=== PATIENT | female | born 1965 | race Caucasian/White ===

== ENCOUNTER → 2021-05-18 08:57 | Outpatient (CLI) | payer OTHER, SELFPAY ==
[2021-05-18 19:52] LABS: SARS-CoV-2 RNA PCR Negative
== END ==
PROVIDERS: PCP Nurse Practitioner Family; Visit Provider Nurse Practitioner Family
DX: Z20.822 Contact with and (suspected) exposure to COVID-19 (principal)
CPT/HCPCS: C9803; U0003; U0005

== ENCOUNTER → 2021-06-22 17:39 | Outpatient (CLI) | payer OTHER, SELFPAY ==
--- NOTE | ~2021-06-22 | XR_ITS ---
EXAMINATION: XR knee LT min 4V DATE: 06/22/2021 18:54 INDICATION: Left knee pain. TECHNIQUE: 4 views of left knee were obtained. COMPARISON: None. FINDINGS: There is varus angulation at the knee. No fracture. There is severe osteoarthritis of media l and patellofemoral compartments and mild osteoarthritis of lateral compartment. No knee joint effus ion. IMPRESSION: 1. Severe left knee osteoarthritis. Reviewed, dictated and finalized at location A.
--- NOTE | ~2021-06-22 | MM_ITS ---
EXAMINATION: MM screening [facility] BI w [facility] HISTORY: Screening TECHNIQUE: Craniocaudal and mediolateral oblique 3-D tomosynthesis images were obtained and synthetic 2-D images were generated. CAD analysis was submitted and interpreted. COMPARISON: Comparison to multiple prior studies sequentially, with oldest reviewed study dated 02/22. BREAST PARENCHYMAL COMPOSITION: Breast composed of scattered areas of fibroglandular density. FINDINGS: There is a mass in the lower inner quadrant of the right breast anteriorly. The left breast is stable without evidence for malignancy. IMPRESSION: 1. Right breast mass, lower inner quadrant anteriorly. 2. Additional mammographic views and possible breast ultrasound are recommended. BI-RADS Category 0: Incomplete: Needs additional imaging evaluation. Reviewed, dictated and finalized at location A. IMPRESSION: 1. Right breast mass, lower inner quadrant anteriorly. 2. Additional mammographic views and possible breast ultrasound are recommended . BI-RADS Category 0: Incomplete: Needs additional imaging evaluation.
--- NOTE | ~2021-06-22 | XR_ITS ---
EXAMINATION: XR knee RT min 4V DATE: 06/22/2021 18:54 INDICATION: Right knee pain. TECHNIQUE: 4 views of right knee were obtained. COMPARISON: None. FINDINGS: There is varus angulation at the knee. No fracture. There is severe osteoarthritis of media l compartment, moderate osteoarthritis of patellofemoral compartment, and mild osteoarthritis of late ral compartment. There is a small knee joint effusion. IMPRESSION: 1. Severe right knee osteoarthritis. 2. Small right knee joint effusion. Reviewed, dictated and finalized at location A.
== END ==
PROVIDERS: PCP Nurse Practitioner Family; Visit Provider Nurse Practitioner Family
DX: Z12.31 Encounter for screening mammogram for malignant neoplasm of breast (principal); R92.8 Other abnormal and inconclusive findings on diagnostic imaging of breast; M17.0 Bilateral primary osteoarthritis of knee
CPT/HCPCS: 73564; 77063; 77067

== ENCOUNTER 2021-07-22 11:01 | Inpatient (IN) | payer OTHER, SELFPAY ==
[2021-07-22] VITALS (13 sets, daily range): BP systolic 145–149; BP diastolic 69–96; PULSE 97–108; RESP 22–32; TEMP 36.2–36.3; O2SAT 80–94; BMI 46.6
--- NOTE | ~2021-07-22 | XR_ITS ---
EXAMINATION: XR chest 1V portable INDICATION: Acute respiratory failure, COVID 19 pneumonia TECHNIQUE: Portable AP chest at 1024 hours COMPARISON: 08/06/2021 FINDINGS: The endotracheal tube ends approximately 4.3 cm above the rishi. The nasogastric tube is i n the stomach. A right upper extremity PICC ends with its tip in the superior vena cava. Diffuse opac ities persist throughout all lung zones without significant change. There is no pleural effusion or p neumothorax. The cardiomediastinal silhouette is stable. IMPRESSION: 1. Stable diffuse lung disease, consistent with pneumonia and/or pulmonary edema. Reviewed, dictated and finalized at location A. K MANAGER IMPRESSION: 1. Stable diffuse lung disease, consistent with pneumonia and/or pulmonary jeff a.
--- NOTE | ~2021-07-22 | XR_ITS ---
EXAMINATION: XR chest 1V portable EXAM DATE: 07/28/2021 12:30 INDICATION: Respiratory failure. COVID pneumonia. TECHNIQUE: Portable AP frontal chest x-ray was obtained. Comparison is made to prior examination from 07/22/2021. FINDINGS: Cardiomegaly, pulmonary vascular congestion. Diffuse bilateral COVID pneumonia, with mild i nterval progression. No pneumothorax. No sizable pleural effusion. There is lumbar scoliosis. IMPRESSION: Progression of diffuse COVID pneumonia. Reviewed, dictated and finalized at location B. ATION TESTING OPERATOR
--- NOTE | ~2021-07-22 | XR_ITS ---
EXAMINATION: XR chest 1V portable EXAM DATE: 08/02/2021 09:52 INDICATION: Resp Failure, COVID + TECHNIQUE: Portable AP frontal chest x-ray was obtained. Comparison is made to prior examination from 08/01/2021, 07/30. FINDINGS: Endotracheal tube tip about 2.5 cm above the rishi. Feeding tube is in position. There is a right-sided PICC line in position. There is diffuse bilateral COVID pneumonia. Probable small left pleural effusion. There is no pneum othorax suspected. Cardiomediastinal silhouette is normal. The bones and soft tissues are unremark able. No appreciable change compared to yesterday. There may be mild progression of airspace disease compar ed to 07/30 IMPRESSION: 1. ET tube about 1 cm above rishi. 2. Diffuse COVID pneumonia. Reviewed, dictated and finalized at location A. ONATION EQUIPMENT OPERATOR
--- NOTE | ~2021-07-22 | XR_ITS ---
EXAMINATION: XR abdomen NG/feed tube insert DATE: 07/30/2021 10:23 INDICATION: Nasogastric tube placement. TECHNIQUE: A supine view of the abdomen was obtained. COMPARISON: None. FINDINGS: The lower abdomen is excluded. There are no dilated loops of bowel. The nasogastric tube ti p is in the stomach. IMPRESSION: 1. Nasogastric tube tip in the stomach. Reviewed, dictated and finalized at location A. K UP WORKER
--- NOTE | ~2021-07-22 | XR_ITS ---
EXAMINATION: XR chest 1V portable DATE: 08/11/2021 12:43 INDICATION: Intubated. TECHNIQUE: frontal view of the chest was obtained. COMPARISON: Chest radiograph dated 08/10/2021 FINDINGS: Endotracheal tube tip 3.4 cm above the rishi. Nasogastric tube coiled in the stomach. Right upper ex tremity peripherally inserted central venous catheter (PICC) tip at the mid superior vena cava. No significant change in diffuse airspace opacity throughout the right lung and in the left mid to lo wer lung zones. Small right pneumothorax seen at the apex, lung base along the minor fissure. Finding s were discussed with Nolvia Russell, the nurse caring for the patient, at 1:22 PM. No left-sided pneu mothorax. Small bilateral pleural effusions could not be excluded. The cardiomediastinal silhouette i s normal. IMPRESSION: 1. New small right pneumothorax possibly a small right pleural effusion. 2. No significant change in extensive bilateral lung disease consistent with pneumonia, pulmonary zoya ma, ARDS or some combination thereof. 3. Possible small bilateral pleural effusions. Reviewed, dictated and finalized at location A. UCTION TEAM MANAGER IMPRESSION: 1. New small right pneumothorax possibly a small right pleural effusion. 2. No significant change in extensive bilateral lung disease consistent with pn eumonia, pulmonary edema, ARDS or some combination thereof. 3. Possible small bilateral pleural effusions.
--- NOTE | ~2021-07-22 | XR_ITS ---
EXAMINATION: XR chest ET placement INDICATION: Endotracheal tube replacement TECHNIQUE: Portable AP chest at 1358 hours COMPARISON: 1024 hours FINDINGS: The endotracheal tube ends approximately 2.1 cm above the rishi. The nasogastric tube is i n the stomach. A right upper extremity PICC ends in the superior vena cava. Diffuse airspace opacitie s persist in all lung zones without significant change. The cardiomediastinal silhouette is stable. T here is no pleural effusion or pneumothorax. IMPRESSION: 1. Endotracheal tube in adequate position. 2. Stable diffuse lung disease, consistent with pneumonia and/or pulmonary edema. Reviewed, dictated and finalized at location A. EN WRITER IMPRESSION: 1. Endotracheal tube in adequate position. 2. Stable diffuse lung disease, consistent with pneumonia and/or pulmonary jeff a.
--- NOTE | ~2021-07-22 | XR_ITS ---
EXAMINATION: XR chest 1V portable EXAM DATE: 07/31/2021 10:42 INDICATION: Resp Failure, COVID+, MECHANICAL VENTILATION mechanical ventilation. TECHNIQUE: Portable AP frontal chest x-ray was obtained. Comparison is made to prior examination from 07/30/2021. FINDINGS: Endotracheal tube has been retracted, tip at expected position about just above the rishi . Feeding tube is in position. There is a right-sided PICC line in position. There is diffuse bilateral COVID pneumonia unchanged. Probable small left pleural effusion. There i s no pneumothorax suspected. Cardiomediastinal silhouette is normal. The bones and soft tissues ar e unremarkable. IMPRESSION: 1. ET tube just above rishi, could be safely retracted 2 cm. 2. Diffuse COVID pneumonia unchanged. I discussed endotracheal tube position and recommendation with ICU nurse Ayesha at 07/31/2021 11:12 SAW MAN. Reviewed, dictated and finalized at location A. MAN
--- NOTE | ~2021-07-22 | XR_ITS ---
EXAMINATION: XR chest 1V portable EXAM DATE: 08/13/2021 09:34 INDICATION: Right pneumothorax, COVID pneumonia, chest tube . TECHNIQUE: Portable AP frontal chest x-ray was obtained. Comparison is made to prior examination from 08/12/2021. FINDINGS: Endotracheal tube tip is 3 centimeters above the rishi. Right-sided PICC line in position. Feeding tube is in position, tip projecting over gastric bubble. There is a right-sided chest tube o verlying right hemithorax. No evidence of pneumothorax on this exam. There is significant interval im provement in previously seen right axillary gas. Extensive bilateral pneumonia and/or edema unchanged. There is no significant interval change. Cardia c silhouette difficult to evaluate due to silhouetting from airspace disease. IMPRESSION: 1. Line and tube(s) in position. 2. Extensive bilateral pneumonia and/or edema unchanged. 3. No evidence pneumothorax. Reviewed, dictated and finalized at location B. RNEY GENERAL
--- NOTE | ~2021-07-22 | XR_ITS ---
EXAMINATION: XR chest 1V portable INDICATION: Acute respiratory failure, COVID pneumonia TECHNIQUE: Portable AP chest at 0938 hours COMPARISON: 08/05/2021 FINDINGS: The endotracheal tube ends approximately 3.9 cm above the rishi. The nasogastric tube is i n the stomach. A right upper extremity PICC ends with its tip in the superior vena cava. Diffuse opac ities persist throughout all lung zones with slight improvement. There is no pleural effusion or pneu mothorax. The cardiomediastinal silhouette is stable. IMPRESSION: 1. Diffuse lung disease with interval improvement, consistent with pneumonia and/or pulmonary edema. Reviewed, dictated and finalized at location A. TS INTERNSHIP IMPRESSION: 1. Diffuse lung disease with interval improvement, consistent with pneumonia an d/or pulmonary edema.
--- NOTE | ~2021-07-22 | XR_ITS ---
EXAMINATION: XR chest 1V portable INDICATION: Acute respiratory failure, COVID 19 pneumonia TECHNIQUE: Portable AP chest at 1023 hours COMPARISON: 08/07/2021 FINDINGS: The endotracheal tube ends approximately 0.2 cm above the rishi. The nasogastric tube is i n the stomach. A right upper extremity PICC ends with its tip in the superior vena cava. Diffuse opac ities persist throughout all lung zones without significant change. There is no pleural effusion or p neumothorax. The cardiac silhouette is obscured. IMPRESSION: 1. Stable diffuse lung disease, consistent with pneumonia and/or pulmonary edema and/or acute respira tory distress syndrome (ARDS). Reviewed, dictated and finalized at location A. RING SOUS CHEF IMPRESSION: 1. Stable diffuse lung disease, consistent with pneumonia and/or pulmonary jeff a and/or acute respiratory distress syndrome (ARDS).
--- NOTE | ~2021-07-22 | XR_ITS ---
EXAMINATION: XR chest 1V portable DATE: 08/09/2021 10:35 INDICATION: Acute respiratory failure. COVID pneumonia. TECHNIQUE: frontal view of the chest was obtained. COMPARISON: Chest radiograph dated 08/08/2021 FINDINGS: Endotracheal tube tip 2.7 cm above the rishi. Right upper extremity peripherally inserted central ve nous catheter (PICC) tip at the superior vena cava. Nasogastric tube with tip in proximal side port in the body of the stomach. Airspace opacities throughout both lungs relatively sparing the left upper lung zone. Opacities appea r improved in the left mid and lower and right upper lung zones but with some worsening in the right mid and lower lung zones. No pneumothorax. The cardiomediastinal silhouette is normal. IMPRESSION: 1. Diffuse bilateral lung disease with some areas demonstrate some improvement with resisted right mi d and lower lung demonstrate some progression. Differential includes pneumonia, pulmonary edema, ARDS , small right pleural effusion or some combination thereof. Reviewed, dictated and finalized at location A. LESS SALES MANAGER IMPRESSION: 1. Diffuse bilateral lung disease with some areas demonstrate some improvement with resisted right mid and lower lung demonstrate some progression. Differenti al includes pneumonia, pulmonary edema, ARDS, small right pleural effusion or s ome combination thereof.
--- NOTE | ~2021-07-22 | XR_ITS ---
EXAMINATION: XR chest 1V portable EXAM DATE: 08/01/2021 10:50 INDICATION: Resp Failure, COVID+, MECHANICAL VENTILATION mechanical ventilation. TECHNIQUE: Portable AP frontal chest x-ray was obtained. Comparison is made to prior examination from 07/31/2021. FINDINGS: Endotracheal tube tip about 1 cm above the rishi. Feeding tube is in position. There is a right-sided PICC line in position. There is diffuse bilateral COVID pneumonia unchanged. Probable small left pleural effusion. There i s no pneumothorax suspected. Cardiomediastinal silhouette is normal. The bones and soft tissues ar e unremarkable. IMPRESSION: 1. ET tube about 1 cm above rishi. 2. Diffuse COVID pneumonia unchanged. Reviewed, dictated and finalized at location A. NEERING ADMINISTRATOR
--- NOTE | ~2021-07-22 | XR_ITS ---
EXAMINATION: XR chest-chest tube insert/pos DATE: 08/11/2021 15:49 INDICATION: Right pneumothorax status post chest tube placement. TECHNIQUE: A single frontal view of the chest was obtained. COMPARISON: Chest single view at 12:30 PM FINDINGS: There is a small right pneumothorax. There is a new right-sided chest tube overlying the ri ght midlung zone. There are airspace opacities throughout the lungs bilaterally. No pleural effusion. The heart size is normal. The endotracheal tube tip is 5.4 cm above the rishi. The nasogastric tube tip is beyond the inferior margin of the radiograph, but at least to the stomach. There is soft tiss ue gas in right chest wall and right neck. IMPRESSION: 1. Slightly worsened small right pneumothorax with new chest tube. 2. Worsened diffuse lung disease, consistent with COVID-19 pneumonia versus acute respiratory distres s syndrome (ARDS) stenosis. Reviewed, dictated and finalized at location A. NSION SPECIFICATION INSPECTOR IMPRESSION: 1. Slightly worsened small right pneumothorax with new chest tube. 2. Worsened diffuse lung disease, consistent with COVID-19 pneumonia versus acu te respiratory distress syndrome (ARDS) stenosis.
--- NOTE | ~2021-07-22 | CT_ITS ---
EXAMINATION: CTA chest PE protocol DATE: 07/22/2021 13:53 INDICATION: Hypoxia and tachycardia TECHNIQUE: Computed tomography angiography (CTA) of the chest was performed with 100 mL Omnipaque-350 intravenous contrast timed to evaluate the pulmonary arteries. Coronal maximum intensity projection 3D-reconstructions were created by the technologist. The dose-length product (DLP) was 821.21 mGy-cm. Automated exposure control and iterative reconstruction technique were employed. COMPARISON: None. FINDINGS: Motion artifact somewhat limits examination. The pulmonary arteries are well-opacified. No central pulmonary embolism is identified. There are widespread groundglass opacities throughout all l loi zones. There is no pleural effusion or pneumothorax. The heart size is normal. There is mild medi astinal lymphadenopathy. The gallbladder is surgically absent. There is mild thoracic spondylosis. IMPRESSION: 1. No pulmonary embolus, sensitivity slightly limited by respiratory motion. 2. Diffuse lung disease, consistent with COVID 19 pneumonia. Reviewed, dictated and finalized at location B. RSEMENT CLERK
--- NOTE | ~2021-07-22 | XR_ITS ---
EXAMINATION: XR chest 1V portable INDICATION: Respiratory failure TECHNIQUE: Portable AP chest at 0827 hours COMPARISON: 08/04/2021 FINDINGS: The endotracheal tube ends approximately 1.4 cm above the rishi. The nasogastric tube is i n the stomach. A right upper extremity PICC ends with its tip in the superior vena cava. Patchy opaci ties persist throughout all lung zones without significant change. There is no pleural effusion or pn eumothorax. The cardiomediastinal silhouette is stable. IMPRESSION: 1. Stable diffuse lung disease, consistent with pneumonia and/or pulmonary edema. Reviewed, dictated and finalized at location A. STANT PRODUCTION EDITOR IMPRESSION: 1. Stable diffuse lung disease, consistent with pneumonia and/or pulmonary jeff a.
--- NOTE | ~2021-07-22 | XR_ITS ---
EXAMINATION: XR chest 1V portable DATE: 08/03/2021 11:07 INDICATION: Respiratory failure. TECHNIQUE: A single frontal view of the chest was obtained. COMPARISON: Chest single view 08/02/2021 FINDINGS: There are airspace opacities throughout the lungs bilaterally with a lower lung predominanc e. There is overexposure of the lung apices, which decreases sensitivity. No pleural effusion or pneu mothorax. The heart size is normal. The endotracheal tube tip is 3.5 cm above the rishi. The nasogas tric tube tip is in the stomach. A right upper extremity peripherally inserted central venous cathete r (PICC) is seen with tip in the superior vena cava. IMPRESSION: 1. Worsened diffuse lung disease, consistent with COVID-19 pneumonia. Reviewed, dictated and finalized at location B. SETTER
--- NOTE | ~2021-07-22 | XR_ITS ---
EXAMINATION: XR chest 1V portable DATE: 08/11/2021 22:53 INDICATION: Decreasing oxygen saturation. TECHNIQUE: A single frontal view of the chest was obtained. COMPARISON: Chest single view at 3:35 PM FINDINGS: There are airspace opacities throughout the lungs bilaterally. There is a small right pneum othorax. There is a right-sided chest tube overlying the right midlung zone. There is extensive gas i n right chest wall and right neck. No pleural effusion. The heart size is normal. The endotracheal tu be tip is 5.5 cm above the rishi. The nasogastric tube tip is in the stomach. A right upper extremit y peripherally inserted central venous catheter (PICC) is seen with tip in the superior vena cava. IMPRESSION: 1. Stable small right pneumothorax with chest tube. 2. Stable diffuse lung disease, consistent with pneumonia versus acute respiratory distress syndrome (ARDS). 3. Worsened extensive subcutaneous emphysema in right chest wall and right neck. Reviewed, dictated and finalized at location A. CH PROFESSOR IMPRESSION: 1. Stable small right pneumothorax with chest tube. 2. Stable diffuse lung disease, consistent with pneumonia versus acute respirat ory distress syndrome (ARDS). 3. Worsened extensive subcutaneous emphysema in right chest wall and right neck .
--- NOTE | ~2021-07-22 | XR_ITS ---
EXAMINATION: XR chest 1V portable DATE: 08/04/2021 12:27 INDICATION: Respiratory failure. TECHNIQUE: A single frontal view of the chest was obtained. COMPARISON: Chest single view 08/03/2021, chest CT 07/22/2021 FINDINGS: There are airspace opacities in all lung zones bilaterally with a mid and lower lung zone p redominance. No pleural effusion or pneumothorax. The heart size is normal. The endotracheal tube tip is 3.4 cm above the rishi. The nasogastric tube tip is in the stomach. A right upper extremity alayna pherally inserted central venous catheter (PICC) is seen with tip in the superior vena cava. IMPRESSION: 1. Stable diffuse lung disease, consistent with COVID-19 pneumonia. Reviewed, dictated and finalized at location B. INE REPAIR PERSON
--- NOTE | ~2021-07-22 | XR_ITS ---
XR chest 1V portable 08/10/2021 09:29 Indication: Acute respiratory failure. Covid Infection. COPD. Procedure: AP portable chest Comparison: Comparison to multiple prior studies sequentially, with oldest reviewed study dated 07/13. Findings: There is an endotracheal tube tip, 4.2 cm above the rishi. NG tube in the stomach. There i s diffuse bilateral airspace disease which may represent pneumonia and/or edema. No significant inter samantha change. PICC line tip in the SVC. No pneumothorax. Impression: 1: Persistent diffuse bilateral airspace disease which may represent pneumonia and/or edema. No signi ficant interval change. Reviewed, dictated and finalized at location B. MS CORRESPONDENCE CLERK Impression: 1: Persistent diffuse bilateral airspace disease which may represent pneumonia and/or edema. No significant interval change.
--- NOTE | ~2021-07-22 | XR_ITS ---
EXAMINATION: XR chest ET placement DATE: 07/30/2021 10:24 INDICATION: Intubation. TECHNIQUE: A single frontal view of the chest was obtained on 2 radiographs. COMPARISON: Chest single view 07/28/2021, chest CT 07/22/2021 FINDINGS: There are airspace opacities in all lung zones bilaterally. No pleural effusion or pneumoth orax. The heart size is normal. The endotracheal tube tip is 1.2 cm above the rishi on the second ra diograph. The nasogastric tube tip is in the stomach. IMPRESSION: 1. Worsened diffuse lung disease, consistent with COVID-19 pneumonia. Reviewed, dictated and finalized at location A. RINGER
--- NOTE | ~2021-07-22 | XR_ITS ---
XR chest 1V portable 08/12/2021 08:54 Indication: Right pneumothorax. Chest tube. Covid pneumonia. Procedure: AP portable chest Comparison: Comparison to multiple prior studies sequentially, with oldest reviewed study dated 07/14. Findings: Stable position to right chest tube. Endotracheal tube tip 7 cm above the rishi. NG tube i n the stomach. PICC line tip in the SVC. Small residual right pneumothorax. Diffuse bilateral airspac e disease which may represent pneumonia, edema and/or ARDS. Impression: 1: Small residual right pneumothorax. 2: No significant change to extensive bilateral airspace disease. Reviewed, dictated and finalized at location B. OPEDIC DENTIST Impression: 1: Small residual right pneumothorax. 2: No significant change to extensive bilateral airspace disease.
--- NOTE | ~2021-07-22 | XR_ITS ---
EXAMINATION: XR chest ET placement EXAM DATE: 07/30/2021 12:45 INDICATION: Endotracheal tube repositioned. TECHNIQUE: Portable AP frontal chest x-ray was obtained. Comparison is made to prior examination from earlier same date. FINDINGS: Endotracheal tube has been retracted, tip at expected position about 3 cm above the rishi . Feeding tube is in position. There is a right-sided PICC line in position. There is diffuse bilateral COVID pneumonia unchanged. Possible small left pleural effusion. There i s no pneumothorax suspected. The cardiomediastinal silhouette is prominent but magnified on this AP technique. The bones and soft tissues are unremarkable. IMPRESSION: 1. Line and tube(s) in position. 2. Diffuse COVID pneumonia unchanged Reviewed, dictated and finalized at location B. F STEWARD/STEWARDESS
--- NOTE | ~2021-07-22 | XR_ITS ---
EXAMINATION: XR chest 1V portable INDICATION: Hypoxia, COVID 19 positive TECHNIQUE: Portable AP chest at 1151 hours COMPARISON: None available FINDINGS: There are patchy opacities throughout the right lung and in the left mid and lower lung zon es. There is no pleural effusion or pneumothorax. The cardiomediastinal silhouette is normal. IMPRESSION: 1. Patchy bilateral airspace opacities, likely COVID 19 pneumonia. Reviewed, dictated and finalized at location B. COMPOSITOR
--- NOTE | 2021-07-22 11:13 | ECG_ITS ---
Measurements Intervals [place] Rate: 106 P: 20 IA: 141 QRS: -27 QRSD: 109 T: 36 QT: 317 QTc: 421 Interpretive Statements SINUS TACHYCARDIA POOR R WAVE PROGRESSION, ANTERIOR LEADS CONSIDER INFERIOR INFARCT, AGE INDETERMINATE BASELINE ARTIFACT- I, II, III, AVR, AVL, AVF, V1-V6 ABNORMAL ECG Electronically Signed On 07-22-2021 19:34:41 MATERNAL FETAL PHYSICIAN by Ronny Finch D.O.
[2021-07-22 12:10] LABS: Basophils Percent Auto 0.1 % (0.2-1.2); Hematocrit 52.6 % (37.0-47.0); Hemoglobin 18.1 g/dL (12.0-15.0); Immature Granulocyte Absolute 0.03 K/mm3 (0.00-0.031); Immature Granulocyte Percent A 0.4 % (0-0.5); Lymphocytes Absolute Auto 0.95 K/mm3 (0.9-3.2); Mean Corpuscular HGB Conc 34.4 g/dl (32-36); Mean Corpuscular Hemoglobin 30.3 pg (26-34); Mean Corpuscular Volume 88.1 fl (80-100); Mean Platelet Volume 8.9 fl (7.4-10.4); Monocytes Absolute Auto 0.4 K/mm3 (0.1-0.6); Neutrophils Absolute Auto 5.9 K/mm3 (1.3-6.7); Neutrophils Percent Auto 80.5 % (45.5-73.1); Platelet Count Result 200 k/mm3 (150-375); Red Blood Count 5.97 M/mm3 (4.2-5.4); Red Cell Distribution Width 13.7 % (11.5-14.5); White Blood Count 7.3 K/mm3 (4.5-10.0)
[2021-07-22 12:25] LABS: Anion Gap 11 mmol/L (8-16); Blood Urea Nitrogen 18 mg/dL (7-17); Calcium 9.4 mg/dL (8.4-10.2); Carbon Dioxide 26 mmol/L (22-30); Chloride 102 mmol/L (98-107); Estimated CRCL calculation 73 ml/min; Estimated Glomerular Filt Rate 58; Glucose 134 mg/dL (65-110); Sodium 139 mmol/L (137-145)
[2021-07-22 12:53] LABS: Alanine Aminotransferase 59 U/L (4-35); Albumin Level 4.4 g/dL (3.5-5.1); Alkaline Phosphatase 66 U/L (38-126); Aspartate Amino Transferase 105 U/L (14-36); Bilirubin,Total 0.7 mg/dL (0.2-1.3)
[2021-07-22 13:32] LABS: INR 0.9; Prothrombin Time 12.5 Seconds (11.1-14.7)
[2021-07-22 13:33] LABS: Partial Thromboplastin Time 25.6 SECONDS (22.3-36.8)
[2021-07-22 13:36] LABS: D Dimer 0.48 ug/mL (<0.48)
--- NOTE | 2021-07-22 13:38 | ED.SOB ---
HPI - SOB/Dyspnea General Chief Complaint: Shortness of Breath/Dyspnea Stated Complaint: covid postive, low O2 Time Seen by Provider: 07/22/21 11:52 Source: patient History of Present Illness HPI Narrative: Patient presents with shortness of breath. Reports she took a home Covid test approximately 1 week ago because she had some cough and congestion and tested positive. Since then her symptoms got progressively worse and today she noted her oxygen levels were in the 80s so she came to the ER for evaluation. She reports she is achy all over she has had fevers continue to have cough and shortness of breath Related Data Allergies Allergy/AdvReac Type Severity Reaction Status Date / Time No Known Allergies Allergy Verified 07/22/21 12:07 Review of Systems Review of Systems: CONSTITUTIONAL: Reports fevers and chills EYES: Denies visual changes, redness, or discharge. ENT: Denies rhinorrhea, congestion, sore throat, or otalgia. CARDIOVASCULAR: Denies chest pain, palpitations, or edema. RESPIRATORY: Reports cough and shortness of breath GASTROINTESTINAL: Denies abdominal pain, nausea, vomiting, or diarrhea. GENITOURINARY: Denies dysuria or hematuria. SKIN: Denies rash or itching. MUSCULOSKELETAL: Denies back pain, joint pain NEUROLOGIC: Denies headache, numbness, dizziness, or weakness. PSYCHIATRIC: Denies anxiety or depression. All systems reviewed & are unremarkable except as noted in HPI and below PMFSH Past Medical History Medical History (Updated 07/22/21 @ 15:25 by Senia Canas PA-C) Hypothyroidism Social History Social History (Updated 07/22/21 @ 15:23 by Senia Canas PA-C) Social History: Surrogate decision maker: Tee Quintero, spouse. Code status: Full code. Smoking status: Never smoker Alcohol intake: current Substance use: never Additional living arrangements comments: The patient lives with her in [place]. Additional occupation/education comments: Self-employed. Exam Narrative: GENERAL: Well-appearing, well-nourished, and in no acute distress. HEAD: Normocephalic, atraumatic. EYES: PERRLA and EOMI. ENT: Nares clear, no rhinorrhea or epistaxis. Mucous membranes moist. NECK: Supple. No masses. No JVD CHEST: Clear to auscultation. Mild respiratory distress no wheezes rales or rhonchi HEART: Regular tachycardia. No murmur heard. Normal peripheral pulses. ABDOMEN: Soft, nontender, nondistended, normal active bowel sounds. EXTREMITIES: Normal range of motion. No edema. SKIN: Warm, dry, no rash. NEURO: No focal deficits. Alert and oriented x3. PSYCH: Normal mood and affect. Course Reevaluation(s) Reevaluation #1: Patient with continued hypoxia due to Covid infection. Will admit to pulse team for further management Date: 07/22/21 Time: 14:11 Vital Signs Vital signs: Vital Signs Temperature 36.3 C L 07/22/21 11:11 Pulse Rate 107 H 07/22/21 11:11 Respiratory Rate 22 H 07/22/21 11:11 Blood Pressure 145/69 H 07/22/21 11:11 Pulse Oximetry 81 L 07/22/21 11:11 Temperature 36.3 C L 07/22/21 11:11 Pulse Rate 107 H 07/22/21 11:11 Respiratory Rate 22 H 07/22/21 11:11 Blood Pressure 145/69 H 07/22/21 11:11 Pulse Oximetry 94 07/22/21 11:15 MDM - SOB/Dyspnea MDM Narrative Medical decision making narrative: Patient presented with shortness of breath with a positive home Covid test. Exam is reassuring her vital signs notable for tachycardia, tachypnea and hypoxia. Labs and imaging obtained. Imaging concerning for Covid pneumonia patient was started on Decadron and remdesivir given patient's hypoxia she will be admitted to the hospitalist team for further management. Patient is comfortable with inpatient plan. Low concern for bacterial pneumonia, PE, ACS Lab Data Result diagrams: 07/22/21 12:01 07/22/21 12:01 Labs: Lab Results 07/22/21 07/22/21 07/22/21 Range/Units 12:01 12: 12:01 WBC 7.3
[2021-07-22] MEDS: REMDESIVIR 200 MG/NS 250 ML 200 MG/250 ML BAG 250 MG IVPB (14:40)
[2021-07-22] MEDS: ONDANSETRON INJ 4 MG/2 ML VIAL (14:45)
--- NOTE | 2021-07-22 15:20 | PM.IMHP ---
H&P: HPI History of Present Illness Date/Time: 07/22/21 15:20 Chief Complaint: Low oxygen levels. Narrative: This is a 55-year-old female with hypothyroidism who presented to the emergency department earlier today via private vehicle from home for evaluation after she discovered that her oxygen levels were low. She has not been feeling well for 9 or 10 days with symptoms to include generalized malaise, body aches, fever up to 104.7?, cough, nausea, decreased appetite, and diarrhea. She tested positive for COVID 19 on a home kit on 07/14/2021 and she was prescribed dexamethasone, azithromycin, Tessalon Perles, and albuterol MDI by her primary care provider that same day. Unfortunately she continues to have the above symptoms although her diarrhea has resolved. She has a pulse oximeter at home and yesterday she noticed that her SpO2 was running in the low 90s and earlier today in the mid 80s, prompting her visit to the ER. On arrival to triage her SpO2 was 81% on room air and she was placed on 5 L nasal cannula. CTA of the chest showed no pulmonary embolus but did note diffuse lung disease consistent with COVID 19 pneumonia and she is being admitted in this setting. On arrival to the medical floor she had rapidly increasing oxygen requirements and she was transferred to the IMU for Airvo. At the time this dictation she is now on the Airvo with a non-rebreather. She does not feel as though she is short of breath or in respiratory distress, however. She is unvaccinated. Review of Systems Review of Systems: Twelve systems were reviewed. She continues to have fevers. No significant sore throat or sinus congestion. She had mild anosmia and dysgeusia last week but that has improved although her appetite remains poor. She denies chest and pleuritic pain. No orthopnea, PND, or lower extremity edema. No calf pain. No history of venous thromboembolism. Diarrhea has improved. No dysuria. Except as documented, all other systems were reviewed and are negative. [facility] Past Medical History Medical History (Updated 07/22/21 @ 23:17 by Senia Canas PA-C) Arthritis COVID-19 (12/2019) Gastroesophageal reflux disease Hypothyroidism Shingles (2009) Surgical History Surgical History (Updated 07/22/21 @ 23:10 by Senia Canas PA-C) History of bunionectomy History of cholecystectomy History of tonsillectomy History of ventral hernia repair Family History Family History (Updated 07/22/21 @ 23:10 by Senia Canas PA-C) Other Hypertension Social History Social History (Updated 07/22/21 @ 15:23 by Senia Canas PA-C) Social History: Surrogate decision maker: Tee Quintero, spouse. Code status: Full code. Smoking status: Never smoker Alcohol intake: current Drinks per week: 0 Substance use: never Substance use type: does not use Additional living arrangements comments: The patient lives with her in [place]. Additional occupation/education comments: Self-employed. Spiritual care concerns: No Meds Home Medications and Allergies Home Medications Medication Instructions Recorded Confirmed Type famotidine 40 mg PO DAILY 07/22/21 07/22/21 History levothyroxine [Euthyrox] 175 mcg PO DAILY 07/22/21 07/22/21 History meloxicam 15 mg PO DAILY 07/22/21 07/22/21 History trazodone 100 mg PO HS 07/22/21 07/22/21 History Allergies Allergy/AdvReac Type Severity Reaction Status Date / Time Penicillins Allergy Anaphylactic Verified 07/22/21 18:03 Shock latex AdvReac Redness of Verified 07/22/21 18:03 Skin Vital Signs Vital Signs - 24 hr 07/22/21 11:11 07/22/21 11:15 Temperature 97.3 F L Pulse Rate 107 H Respiratory Rate 22 H Blood Pressure 145/69 H Pulse Oximetry 81 L 94 Exam Narrative: General: Moderately ill-appearing female sitting up in bed. Weight: 123.3 kg. BMI: 46.7. HEENT: Normocephalic, atraumatic. PERRL, EOMI. Sclerae anicteric. Tacky mucou
[2021-07-22 15:25] LABS: Lactate Dehydrogenase 1170 U/L (313-618)
[2021-07-22 15:52] LABS: Procalcitonin 0.7 ng/mL
--- NOTE | 2021-07-22 17:49 | ADMGEN ---
This patient, Digna Quintero, was admitted to [facility] Surg Room 326-01. Patient/family oriented to hospital policies and general routines including ID bracelet, bed and alarms, visiting hours, pain management, procedures, bathroom and other care routines, personal items, smoking policy, room service/diet, and visiting hours. Information on how to activate the Rapid Response Team has been discussed. Patient/Family are encouraged to report perceived risks to care and to ask questions if they do not understand what they are told or what they should do.
[2021-07-22 19:21] LABS: Alveolar/Arterial O2 Gradient 605.6 mmHg; Base Excess ABG 0.4 mEq/l (+/-2.0); Carboxyhemoglobin 0.3 % THb (0-2.0); Fractional Inspired Oxygen 100 %; HCO3 ABG 23.9 mEq/l (22.0-26.0); Methemoglobin ABG 0.5 %THb (0-1.5); Oxygen Content ABG 23.8 %vol (16.0-22.0); Oxygen Saturation ABG 95.1 % (95.0-100.0); Oxyhemoglobin 93.8 % THb (90.0-100.0); PCO2 ABG 35.8 mmHg (35.0-45.0); PO2 ABG 71.6 mmHg (80.0-100.0); PO2 FiO2 Ratio Arterial Blood 0.72 %; Reduced Hemoglobin 5.4 %THb (0-5.0); Total Hemoglobin 18.1 g/dL (12.0-18.0); pH ABG 7.442 (7.350-7.450)
[2021-07-22 19:22] LABS: Device HIGH FLOW NASAL CANN; Modified Allen's Test Pass; Site Drawn RIGHT RADIAL
--- NOTE | 2021-07-22 19:54 | PC.NURSE ---
Pt arrived to floor at 1735. Pt 02 saturation at 80% on NC 3L despite getting report pt in ED 3L NC at 94%. Placed pt on 15L HFNC and called Senia. Pt highest 02 sat was 89-90%. Senia ordered transfer to IMU 200. Gave report, transported pt on 15L HFNC and 10L NRB, and called .
[2021-07-22] MEDS: traZODone HCL 50 MG TABLET 100 MG PO (21:15)
[2021-07-23] VITALS (16 sets, daily range): BP systolic 106–170; BP diastolic 69–104; PULSE 83–97; RESP 18–26; TEMP 36.6–37.3; O2SAT 90–97
[2021-07-23] MEDS: LEVOTHYROXINE SODIUM 75 MCG TABLET PO (05:32)
[2021-07-23] MEDS: LEVOTHYROXINE SODIUM 100 MCG TABLET PO (05:32)
[2021-07-23 06:58] LABS: Alanine Aminotransferase 71 U/L (4-35); Alkaline Phosphatase 72 U/L (38-126); Anion Gap 14 mmol/L (8-16); Aspartate Amino Transferase 84 U/L (14-36); Bilirubin,Total 0.4 mg/dL (0.2-1.3); Blood Urea Nitrogen 22 mg/dL (7-17); Calcium 9.1 mg/dL (8.4-10.2); Carbon Dioxide 24 mmol/L (22-30); Chloride 104 mmol/L (98-107); Estimated CRCL calculation 90 ml/min; Estimated Glomerular Filt Rate > 60; Glucose 170 mg/dL (65-110); Hematocrit 49.8 % (37.0-47.0); Hemoglobin 16.8 g/dL (12.0-15.0); Immature Granulocyte Absolute 0.01 K/mm3 (0.00-0.031); Immature Granulocyte Percent A 0.3 % (0-0.5); Lymphocytes Absolute Auto 0.47 K/mm3 (0.9-3.2); Lymphocytes Percent Auto 12.1 % (18.3-44.2); Magnesium 2.3 mg/dL (1.6-2.3); Mean Corpuscular HGB Conc 33.7 g/dl (32-36); Mean Corpuscular Hemoglobin 30.2 pg (26-34); Mean Corpuscular Volume 89.6 fl (80-100); Mean Platelet Volume 8.9 fl (7.4-10.4); Monocytes Absolute Auto 0.4 K/mm3 (0.1-0.6); Monocytes Percent Auto 9.8 % (2.6-8.5); Neutrophils Percent Auto 77.8 % (45.5-73.1); Platelet Count Result 193 k/mm3 (150-375); Potassium 4.1 mmol/L (3.4-5.0); Red Blood Count 5.56 M/mm3 (4.2-5.4); Red Cell Distribution Width 13.6 % (11.5-14.5); Sodium 142 mmol/L (137-145); White Blood Count 3.9 K/mm3 (4.5-10.0)
--- NOTE | 2021-07-23 08:58 | PM.IMPN ---
Progress Note: A&P Assessment and Plan (1) Acute respiratory failure with hypoxia: Code(s): J96.01 - Acute respiratory failure with hypoxia Status: Acute Assessment and Plan: Secondary to diffuse pneumonia noted on chest CT. No evidence of pulmonary emboli though sensitivity slightly limited by respiratory motion. Stable right now on non-rebreather mask and Airvo. Spoke to her about the possibility of intubation and she is agreeable. She is also agreeable to proceed with medications with EUA. Encouraged her to lay prone in bed as much as she can toelrate. Will notify dinkey mechanic of the severity of this patient's condition. Albuterol inhaler (2) Pneumonia due to COVID-19 virus: Code(s): U07.1 - COVID-19; J12.82 - Pneumonia due to coronavirus disease 2019 Status: Acute Assessment and Plan: Patient reports that she tested positive for COVID on a home kit on 07/14/21 after being exposed by her son who was positive. Patient developed symptoms typical of COVID. Chest CT showed diffuse lung disease consistent with pneumonia. She is now in acute respiratory failure most likely related to COVID. Since we cannot confirm for COVID status, she was started on empiric antibiotics, pending SARS-CoV-2 by PCR. DDimer normal but elevated LDH, Ferritin and CRP. Sputum to be attempted for culture. We have run COVID PCR test for verification. Remdesivir and dexamethasone started from the ED which we will continue. Consider baricitinib/tocilizumab if her test returns positive. She will remain in isolation. (3) Polycythemia: Code(s): D75.1 - Secondary polycythemia Status: Acute Assessment and Plan: Hemoglobin 18.1 on admission. Consider chronic hypoxia, hemoconcentration, a combination of both, or even PCV. Previous CBC results requested from her primary care prior for comparison. ABG 7.44/36/72 on HFNC at 100% FiO2. Could have undiagnosed GABRIEL. Repeat hemoglobin has improved. Hold off on fluids. Continue to monitor for now. (4) Elevated LFTs: Code(s): R79.89 - Other specified abnormal findings of blood chemistry Status: Acute Assessment and Plan: Mild elevation the LFTs most likely related to viral etiology. Repeat labs show some improvement in the least AST. Continue to monitor. Mild leukopenia noted again related to viral etiology. Follow (5) Elevated blood pressure reading: Code(s): R03.0 - Elevated blood-pressure reading, without diagnosis of hypertension Status: Acute Assessment and Plan: Blood pressures have been elevated into the 140-150/90-100 range. Most likely related to stress response from the respiratory failure. Current blood pressure is much better controlled at 106/69. Will continue to monitor for now. (6) Hypothyroidism: Code(s): E03.9 - Hypothyroidism, unspecified Status: Acute Assessment and Plan: TSH is normal. Continue Synthroid. (7) DVT prophylaxis: Code(s): Z29.9 - Encounter for prophylactic measures, unspecified Status: Acute Assessment and Plan: Lovenox Subjective Date/time seen: 07/23/21 08:58 Interval history: 55yo female with hypothyroidism here for COVID PNA with acute respiratory failure. Patient is unvaccinated. Patient's son developed COVID. Patient tested positive for COVID on July 14 even though she was asymptomatic at that time. Over the next week or so prior to admission, she developed typical COVID symptoms with malaise, fever, cough, nausea and diarrhea. She was treated with azithromycin, dexamethasone, Tessalon Perles and albuterol by her primary care doctor. Condition however worsen and she developed hypoxia thus presented to the emergency room for evaluation. She feels short of breath. She complains of chest pressure worse with deep breathing. Cough is manageable. No nausea or vomiting. No history of asthma or emphysema. She is a nonsmoker.
[2021-07-23] MEDS: ENOXAPARIN 40 MG/0.4 ML SYRINGE SUB-Q (10:36)
[2021-07-23] MEDS: FAMOTIDINE 20 MG TABLET 40 MG PO (10:36)
[2021-07-23] MEDS: REMDESIVIR 100 MG/NS 250 ML 100 MG/250 ML BAG 250 MG IVPB (10:39)
[2021-07-23] MEDS: ALBUTEROL SULFATE (*SP) AEROSOL 1 PUFF 2 PUFF INHALATION ×3 (13:21→20:45)
[2021-07-23 18:11] LABS: SARS-CoV-2 RNA PCR Positive
[2021-07-23] MEDS: traZODone HCL 50 MG TABLET 100 MG PO (21:48)
[2021-07-23] MEDS: TOCILIZUMAB 800 MG in SODIUM CHLORIDE 0.9% IV 60 ML 100 MG IVPB (21:48)
[2021-07-24] VITALS (15 sets, daily range): BP systolic 125–149; BP diastolic 58–87; PULSE 69–92; RESP 22–28; TEMP 36.8–37.6; O2SAT 88–96
[2021-07-24] MEDS: LEVOTHYROXINE SODIUM 75 MCG TABLET PO (05:29)
[2021-07-24] MEDS: LEVOTHYROXINE SODIUM 100 MCG TABLET PO (05:30)
[2021-07-24 06:00] LABS: Prothrombin Time 13.2 Seconds (11.1-14.7)
[2021-07-24 06:09] LABS: Alanine Aminotransferase 62 U/L (4-35); Estimated CRCL calculation 90 ml/min; Estimated Glomerular Filt Rate > 60
[2021-07-24 06:09] LABS: Basophils Percent Auto 0.3 % (0.2-1.2); Hematocrit 50.1 % (37.0-47.0); Hemoglobin 17.1 g/dL (12.0-15.0); Immature Granulocyte Absolute 0.03 K/mm3 (0.00-0.031); Immature Granulocyte Percent A 0.9 % (0-0.5); Lymphocytes Absolute Auto 0.71 K/mm3 (0.9-3.2); Lymphocytes Percent Auto 22.1 % (18.3-44.2); Mean Corpuscular HGB Conc 34.1 g/dl (32-36); Mean Corpuscular Hemoglobin 30.6 pg (26-34); Mean Corpuscular Volume 89.6 fl (80-100); Mean Platelet Volume 8.7 fl (7.4-10.4); Monocytes Absolute Auto 0.4 K/mm3 (0.1-0.6); Monocytes Percent Auto 12.8 % (2.6-8.5); Neutrophils Absolute Auto 2.1 K/mm3 (1.3-6.7); Neutrophils Percent Auto 63.9 % (45.5-73.1); Platelet Count Result 244 k/mm3 (150-375); Red Blood Count 5.59 M/mm3 (4.2-5.4); Red Cell Distribution Width 13.6 % (11.5-14.5); White Blood Count 3.2 K/mm3 (4.5-10.0)
[2021-07-24 08:01] LABS: Alanine Aminotransferase 62 U/L (4-35); Albumin Level 3.8 g/dL (3.5-5.1); Alkaline Phosphatase 72 U/L (38-126); Anion Gap 12 mmol/L (8-16); Aspartate Amino Transferase 63 U/L (14-36); Bilirubin,Total 0.4 mg/dL (0.2-1.3); Blood Urea Nitrogen 34 mg/dL (7-17); Calcium 9.7 mg/dL (8.4-10.2); Carbon Dioxide 26 mmol/L (22-30); Chloride 106 mmol/L (98-107); Estimated CRCL calculation 89 ml/min; Estimated Glomerular Filt Rate > 60; Glucose 182 mg/dL (65-110); Potassium 4.2 mmol/L (3.4-5.0); Sodium 144 mmol/L (137-145)
[2021-07-24] MEDS: ALBUTEROL SULFATE (*SP) AEROSOL 1 PUFF 2 PUFF INHALATION ×4 (09:23→21:00)
[2021-07-24] MEDS: FAMOTIDINE 20 MG TABLET 40 MG PO (10:34)
[2021-07-24] MEDS: ENOXAPARIN 40 MG/0.4 ML SYRINGE SUB-Q (10:42)
[2021-07-24] MEDS: REMDESIVIR 100 MG/NS 250 ML 100 MG/250 ML BAG 250 MG IVPB (10:42)
[2021-07-24] MEDS: BENZONATATE 100 MG CAPSULE PO ×3 (12:42→20:55)
--- NOTE | 2021-07-24 15:05 | PM.IMPN ---
Progress Note: A&P Assessment and Plan (1) Acute respiratory failure with hypoxia: Code(s): J96.01 - Acute respiratory failure with hypoxia Status: Acute Assessment and Plan: Secondary to diffuse pneumonia noted on chest CT. No evidence of pulmonary emboli though sensitivity slightly limited by respiratory motion. Stable currently on non-rebreather mask and Airvo. Prone as she tolerates. Monitor sats (2) Pneumonia due to COVID-19 virus: Code(s): U07.1 - COVID-19; J12.82 - Pneumonia due to coronavirus disease 2018 Status: Acute Assessment and Plan: Patient reports that she tested positive for COVID on a home kit on 07/14/21 after being exposed by her son who was positive. Patient developed symptoms typical of COVID. Chest CT showed diffuse lung disease consistent with pneumonia. She is now in acute respiratory failure most likely related to COVID. Since we cannot confirm for COVID status, she was started on empiric antibiotics, pending SARS-CoV-2 by PCR. DDimer normal but elevated LDH, Ferritin and CRP. Sputum attempted for culture. Remdesivir and dexamethasone continuing. Consider baricitinib/tocilizumab if her test returns positive. Droplet isolation (3) Polycythemia: Code(s): D75.1 - Secondary polycythemia Status: Acute Assessment and Plan: Hemoglobin 18.1 on admission. Consider chronic hypoxia, hemoconcentration, a combination of both, or even PRV. Could have undiagnosed GABRIEL. 07/14 hgb 17.1 Continue to monitor. (4) Elevated LFTs: Code(s): R79.89 - Other specified abnormal findings of blood chemistry Status: Acute Assessment and Plan: Mild elevation the LFTs most likely related to viral etiology. Repeat labs show some improvement in the least AST. Continue to monitor. Mild leukopenia noted again related to viral etiology. Follow (5) Elevated blood pressure reading: Code(s): R03.0 - Elevated blood-pressure reading, without diagnosis of hypertension Status: Acute Assessment and Plan: Blood pressures have been elevated into the 140-150/90-100 range. Most likely related to stress response from the respiratory failure. 07/24 BP 132/70 Continue to monitor. (6) Hypothyroidism: Code(s): E03.9 - Hypothyroidism, unspecified Status: Acute Assessment and Plan: TSH is normal. Continue Synthroid. (7) DVT prophylaxis: Code(s): Z29.9 - Encounter for prophylactic measures, unspecified Status: Acute Assessment and Plan: Ramon Hall Date/time seen: 07/24/21 15:05 Interval history: 55yo female with hypothyroidism here for COVID PNA with acute respiratory failure. Patient is unvaccinated. Patient's son developed COVID. Patient tested positive for COVID on July 14 even though she was asymptomatic at that time. Over the next week or so prior to admission, she developed typical COVID symptoms with malaise, fever, cough, nausea and diarrhea. She was treated with azithromycin, dexamethasone, Tessalon Perles and albuterol by her primary care doctor. Condition however worsen and she developed hypoxia thus presented to the emergency room for evaluation. 07/24 VISIT: SOB WITH CONVERSATION. BUT FEELS BETTER THAN YESTERDAY. TASTE AND SMELL INTACT. APPETITE FAIR. DENIED PAIN. WAS ABLE TO DEFECATE ON BEDSIDE COMMODE TODAY. Review of Systems Review of Systems: All systems reviewed & are unremarkable except as noted in HPI and below Exam Narrative: 94% Airvo and NRB mask Gen - NARD lying semi recumbent bed Chest -few basilar rhonchi appreciated otherwise distant clear breath sounds. Normal respiratory rate. CV - RRR S1/S2. Abd -soft. BS+. Obese. Nontender. Ext - No pedal edema Psych - Nml mood with blunted affect Skin - Warm and dry Objective Data Vital Signs Vital Signs: Vital Signs - 24 hr 07/23/21 16:00 07/23/21 16:28 07/23/21 18:00 Tem
[2021-07-24] MEDS: traZODone HCL 50 MG TABLET 100 MG PO (20:55)
[2021-07-25] VITALS (18 sets, daily range): BP systolic 113–135; BP diastolic 62–76; PULSE 63–85; RESP 18–24; TEMP 36.4–37.1; O2SAT 90–98
[2021-07-25 04:17] LABS: Hematocrit 49.2 % (37.0-47.0); Hemoglobin 16.8 g/dL (12.0-15.0); Mean Corpuscular HGB Conc 34.1 g/dl (32-36); Mean Corpuscular Hemoglobin 30.6 pg (26-34); Mean Corpuscular Volume 89.6 fl (80-100); Mean Platelet Volume 8.5 fl (7.4-10.4); Platelet Count Result 283 k/mm3 (150-375); Red Blood Count 5.49 M/mm3 (4.2-5.4); Red Cell Distribution Width 13.2 % (11.5-14.5); White Blood Count 4.9 K/mm3 (4.5-10.0)
[2021-07-25 04:32] LABS: Prothrombin Time 13.3 Seconds (11.1-14.7)
[2021-07-25 04:34] LABS: Alanine Aminotransferase 81 U/L (4-35); Albumin Level 3.8 g/dL (3.5-5.1); Alkaline Phosphatase 64 U/L (38-126); Anion Gap 13 mmol/L (8-16); Aspartate Amino Transferase 82 U/L (14-36); Bilirubin,Total 0.7 mg/dL (0.2-1.3); Blood Urea Nitrogen 35 mg/dL (7-17); CRP 1.6 mg/dL (<1.0); Calcium 9.2 mg/dL (8.4-10.2); Carbon Dioxide 23 mmol/L (22-30); Chloride 106 mmol/L (98-107); Estimated CRCL calculation 100 ml/min; Estimated Glomerular Filt Rate > 60; Glucose 151 mg/dL (65-110); Lactate Dehydrogenase 1135 U/L (313-618); Potassium 4.3 mmol/L (3.4-5.0); Sodium 142 mmol/L (137-145)
[2021-07-25 04:35] LABS: D Dimer 0.36 ug/mL (<0.48)
[2021-07-25 04:43] LABS: Troponin I < 0.012 ng/mL (0.000-0.034)
[2021-07-25 06:02] LABS: Ferritin > 2000.00 ng/mL (11.1-264)
[2021-07-25] MEDS: LEVOTHYROXINE SODIUM 100 MCG TABLET PO (06:26)
[2021-07-25] MEDS: LEVOTHYROXINE SODIUM 75 MCG TABLET PO (06:26)
[2021-07-25] MEDS: FAMOTIDINE 20 MG TABLET 40 MG PO (08:15)
[2021-07-25] MEDS: ENOXAPARIN 40 MG/0.4 ML SYRINGE SUB-Q (08:15)
[2021-07-25] MEDS: BENZONATATE 100 MG CAPSULE PO ×2 (08:15→20:42)
[2021-07-25] MEDS: ALBUTEROL SULFATE (*SP) AEROSOL 1 PUFF 2 PUFF INHALATION ×4 (09:02→20:45)
--- NOTE | 2021-07-25 09:06 | PM.IMPN ---
Progress Note: A&P Assessment and Plan (1) Acute respiratory failure with hypoxia: Code(s): J96.01 - Acute respiratory failure with hypoxia Status: Acute Assessment and Plan: Secondary to diffuse pneumonia noted on chest CT. No evidence of pulmonary emboli though sensitivity slightly limited by respiratory motion. Stable currently on non-rebreather mask and Airvo. Prone as she tolerates. Monitor sats (2) Pneumonia due to COVID-19 virus: Code(s): U07.1 - COVID-19; J12.82 - Pneumonia due to coronavirus disease 2019 Status: Acute Assessment and Plan: Patient reports that she tested positive for COVID on a home kit on 07/14/21 after being exposed by her son who was positive. Patient developed symptoms typical of COVID. Chest CT showed diffuse lung disease consistent with pneumonia. She is now in acute respiratory failure most likely related to COVID. Since we cannot confirm for COVID status, she was started on empiric antibiotics, pending SARS-CoV-2 by PCR. DDimer normal but elevated LDH, Ferritin and CRP. Sputum attempted for culture. Remdesivir (THROUGH 07/26) and dexamethasone (THROUGH 08/01) continuing. Baricitinib 4mg daily added 07/25, to continue 14 days or until hospital discharge (whichever is first). 07/25 inflammatory markers trending down. Droplet isolation. (3) Polycythemia: Code(s): D75.1 - Secondary polycythemia Status: Acute Assessment and Plan: Hemoglobin 18.1 on admission. Consider chronic hypoxia, hemoconcentration, a combination of both, or even PRV. Could have undiagnosed GABRIEL. 07/14 hgb 17.1, 07/25 16.8 Continue to monitor. (4) Elevated LFTs: Code(s): R79.89 - Other specified abnormal findings of blood chemistry Status: Acute Assessment and Plan: Mild elevation the LFTs most likely related to viral etiology. Repeat labs show some improvement in the least AST. Continue to monitor. Mild leukopenia noted again related to viral etiology. Follow (5) Elevated blood pressure reading: Code(s): R03.0 - Elevated blood-pressure reading, without diagnosis of hypertension Status: Acute Assessment and Plan: Blood pressures have been elevated into the 140-150/90-100 range. Most likely related to stress response from the respiratory failure. 07/24 BP 132/70 Continue to monitor. (6) Hypothyroidism: Code(s): E03.9 - Hypothyroidism, unspecified Status: Acute Assessment and Plan: TSH is normal. Continue Synthroid. (7) DVT prophylaxis: Code(s): Z29.9 - Encounter for prophylactic measures, unspecified Status: Acute Assessment and Plan: Lovenox Subjective Date/time seen: 07/25/21 09:06 Interval history: 55yo female with hypothyroidism here for COVID PNA with acute respiratory failure. Patient is unvaccinated. Patient's son developed COVID. Patient tested positive for COVID on July 14 even though she was asymptomatic at that time. Over the next week or so prior to admission, she developed typical COVID symptoms with malaise, fever, cough, nausea and diarrhea. She was treated with azithromycin, dexamethasone, Tessalon Perles and albuterol by her primary care doctor. Condition however worsen and she developed hypoxia thus presented to the emergency room for evaluation. 07/25 VISIT: LESS SHORT OF BREATH WITH CONVERSATION. MORE COUGH. BRINGING UP SCANT AMOUNTS OF SPUTUM. A LITTLE MORE TIRED TODAY. BUT ABLE TO TOLERATE AIRVO WITHOUT SUPERIMPOSED NON-REBREATHER MASK. Review of Systems Review of Systems: All systems reviewed & are unremarkable except as noted in HPI and below Exam Narrative: 94% Airvo and NRB mask Gen - NARD lying semi recumbent bed Chest -few basilar rhonchi appreciated otherwise distant clear breath sounds. Normal respiratory rate. CV - RRR S1/S2. Abd -soft. BS+. Obese. Nontender. Ext - No pedal edema Psych - Nml mood
[2021-07-25] MEDS: REMDESIVIR 100 MG/NS 250 ML 100 MG/250 ML BAG 250 MG IVPB (10:00)
[2021-07-25] MEDS: BARICITINIB 2 MG TABLET 4 MG PO (16:10)
[2021-07-25] MEDS: traZODone HCL 50 MG TABLET 100 MG PO (20:41)
[2021-07-26] VITALS (21 sets, daily range): BP systolic 108–142; BP diastolic 64–81; PULSE 59–85; RESP 20–28; TEMP 36.1–36.9; O2SAT 84–98
[2021-07-26 05:52] LABS: Basophils Percent Auto 0.2 % (0.2-1.2); Eosinophils Percent Auto 0.2 % (0-4.4); Hematocrit 47.4 % (37.0-47.0); Hemoglobin 15.8 g/dL (12.0-15.0); Immature Granulocyte Absolute 0.03 K/mm3 (0.00-0.031); Immature Granulocyte Percent A 0.5 % (0-0.5); Lymphocytes Absolute Auto 1.26 K/mm3 (0.9-3.2); Lymphocytes Percent Auto 19.7 % (18.3-44.2); Mean Corpuscular HGB Conc 33.3 g/dl (32-36); Mean Corpuscular Hemoglobin 30.4 pg (26-34); Mean Corpuscular Volume 91.2 fl (80-100); Mean Platelet Volume 9.8 fl (7.4-10.4); Monocytes Absolute Auto 0.6 K/mm3 (0.1-0.6); Monocytes Percent Auto 8.9 % (2.6-8.5); Neutrophils Absolute Auto 4.5 K/mm3 (1.3-6.7); Neutrophils Percent Auto 70.5 % (45.5-73.1); Platelet Count Result 242 k/mm3 (150-375); White Blood Count 6.4 K/mm3 (4.5-10.0)
[2021-07-26 05:56] LABS: Alanine Aminotransferase 72 U/L (4-35); Aspartate Amino Transferase 54 U/L (14-36); Estimated CRCL calculation 115 ml/min; Estimated Glomerular Filt Rate > 60
[2021-07-26 06:17] LABS: Prothrombin Time 13.1 Seconds (11.1-14.7)
[2021-07-26] MEDS: LEVOTHYROXINE SODIUM 75 MCG TABLET PO (06:30)
[2021-07-26] MEDS: LEVOTHYROXINE SODIUM 100 MCG TABLET PO (06:30)
[2021-07-26] MEDS: FAMOTIDINE 20 MG TABLET 40 MG PO (08:50)
[2021-07-26] MEDS: ENOXAPARIN 40 MG/0.4 ML SYRINGE SUB-Q (08:50)
[2021-07-26] MEDS: REMDESIVIR 100 MG/NS 250 ML 100 MG/250 ML BAG 250 MG IVPB (08:50)
[2021-07-26] MEDS: BARICITINIB 2 MG TABLET 4 MG PO (08:51)
[2021-07-26] MEDS: ALBUTEROL SULFATE (*SP) AEROSOL 1 PUFF 2 PUFF INHALATION ×4 (09:06→20:27)
--- NOTE | 2021-07-26 11:08 | PM.IMPN ---
Progress Note: A&P Assessment and Plan (1) Acute respiratory failure with hypoxia: Code(s): J96.01 - Acute respiratory failure with hypoxia Status: Acute Assessment and Plan: Secondary to diffuse pneumonia noted on chest CT. No evidence of pulmonary emboli though sensitivity slightly limited by respiratory motion. Stable currently on Airvo. Able to come off of the NRB mask. Prone as she tolerates. Monitor SpO2. Wean O2 as tolerated. (2) Pneumonia due to COVID-19 virus: Code(s): U07.1 - COVID-19; J12.82 - Pneumonia due to coronavirus disease 2019 Status: Acute Assessment and Plan: Patient reports that she tested positive for COVID on a home kit on 07/14/21 after being exposed by her son who was positive. She did develop typical COVID symptoms. Chest CT showed diffuse lung disease consistent with COVID pneumonia and she tested positive here. She presented with acute respiratory failure related to COVID. She was started on empiric antibiotics. DDimer was normal and remaining normal. CRP and LDH trending down but Ferriitn still elevated. She was started on: Remdesivir (THROUGH 07/26) and dexamethasone (THROUGH 08/01) continuing. Tocilizumab 800mg IV once on 07/23/21; Baricitinib added 07/25 but will stop Add Mucinex. Robtussin prn. Ad ocean spray for the post-nasal drainage. Continue to monitor inflammatory markers. Continue droplet isolation. Wean oxygen as tolerated. (3) Polycythemia: Code(s): D75.1 - Secondary polycythemia Status: Acute Assessment and Plan: Hemoglobin 18.1 on admission. Consider chronic hypoxia, hemoconcentration, a combination of both, or even PRV. Could have undiagnosed GABRIEL. Repeat Hgb down to 15.8. Continue to monitor. (4) Elevated LFTs: Code(s): R79.89 - Other specified abnormal findings of blood chemistry Status: Acute Assessment and Plan: Mild elevation the LFTs most likely related to viral etiology. Repeat labs show improvement. Continue to monitor. Mild leukopenia that was related to viral etiology has resolved. Follow (5) Elevated blood pressure reading: Code(s): R03.0 - Elevated blood-pressure reading, without diagnosis of hypertension Status: Acute Assessment and Plan: Blood pressure was elevated into the 140-150 range felt related to the stress response from the respiratory failure. Patient's blood pressure was reviewed on 07/26. Blood pressure remains well controlled. Will continue to monitor. (6) Hypothyroidism: Code(s): E03.9 - Hypothyroidism, unspecified Status: Acute Assessment and Plan: TSH is normal. Continue Synthroid. (7) DVT prophylaxis: Code(s): Z29.9 - Encounter for prophylactic measures, unspecified Status: Acute Assessment and Plan: Lovenox Subjective Date/time seen: 07/26/21 11:08 Interval history: 55yo female with hypothyroidism here for COVID PNA with acute respiratory failure. Patient is unvaccinated. Patient's son developed COVID. Patient tested positive for COVID on July 14 even though she was asymptomatic at that time. Over the next week or so prior to admission, she developed typical COVID symptoms with malaise, fever, cough, nausea and diarrhea. She was treated with azithromycin, dexamethasone, Tessalon Perles and albuterol by her primary care doctor. Condition however worsen and she developed hypoxia thus presented to the emergency room for evaluation. Resuming care. Chart reviewed. Patient feels better. She feels less short of breath. Still with productive nagging cough. Slight nausea but eating okay. No chest pain but does have some tightness when she tries to take deep breaths. She is trying to lay prone as often as possible. She has not required the non-rebreather mask over the past 48 hours. Does complain of left ear popping and post-nasal drainage. Exam Narrative: AF 96.9 125/73 62 20 93% 5
[2021-07-26] MEDS: guaiFENesin 12 HR 600 MG TABCR PO ×2 (12:30→21:03)
[2021-07-26] MEDS: traZODone HCL 50 MG TABLET 100 MG PO (22:37)
[2021-07-27] VITALS (18 sets, daily range): BP systolic 108–137; BP diastolic 65–82; PULSE 53–86; RESP 22–28; TEMP 36.4–36.8; O2SAT 87–97
[2021-07-27] MEDS: LEVOTHYROXINE SODIUM 100 MCG TABLET PO (05:44)
[2021-07-27] MEDS: LEVOTHYROXINE SODIUM 75 MCG TABLET PO (05:44)
[2021-07-27 06:37] LABS: Anion Gap 6 mmol/L (8-16); Blood Urea Nitrogen 27 mg/dL (7-17); Carbon Dioxide 27 mmol/L (22-30); Chloride 106 mmol/L (98-107); Estimated CRCL calculation 102 ml/min; Estimated Glomerular Filt Rate > 60; Glucose 105 mg/dL (65-110); Potassium 4.1 mmol/L (3.4-5.0); Sodium 139 mmol/L (137-145)
[2021-07-27 06:42] LABS: Basophils Percent Auto 0.1 % (0.2-1.2); Eosinophils Percent Auto 0.4 % (0-4.4); Immature Granulocyte Absolute 0.07 K/mm3 (0.00-0.031); Immature Granulocyte Percent A 0.9 % (0-0.5); Lymphocytes Percent Auto 17.4 % (18.3-44.2); Mean Corpuscular Hemoglobin 30.9 pg (26-34); Mean Corpuscular Volume 90.9 fl (80-100); Mean Platelet Volume 8.5 fl (7.4-10.4); Monocytes Absolute Auto 0.4 K/mm3 (0.1-0.6); Monocytes Percent Auto 4.9 % (2.6-8.5); Neutrophils Absolute Auto 6.1 K/mm3 (1.3-6.7); Neutrophils Percent Auto 76.3 % (45.5-73.1); Platelet Count Result 302 k/mm3 (150-375); Red Cell Distribution Width 12.9 % (11.5-14.5)
[2021-07-27] MEDS: ALBUTEROL SULFATE (*SP) AEROSOL 1 PUFF 2 PUFF INHALATION ×4 (08:05→20:45)
[2021-07-27] MEDS: guaiFENesin 12 HR 600 MG TABCR PO ×2 (08:55→22:00)
[2021-07-27] MEDS: FAMOTIDINE 20 MG TABLET 40 MG PO (08:55)
[2021-07-27] MEDS: ENOXAPARIN 40 MG/0.4 ML SYRINGE SUB-Q (08:55)
--- NOTE | 2021-07-27 11:49 | PM.IMPN ---
Progress Note: A&P Assessment and Plan (1) Acute respiratory failure with hypoxia: Code(s): J96.01 - Acute respiratory failure with hypoxia Status: Acute Assessment and Plan: Secondary to diffuse pneumonia noted on chest CT. No evidence of pulmonary emboli though sensitivity slightly limited by respiratory motion. Stable currently on Airvo but more hypoxic with exertion. Able to come off of the NRB mask. Encouraged her to lay prone as she tolerates. Monitor SpO2. Wean O2 as tolerated. (2) Pneumonia due to COVID-19 virus: Code(s): U07.1 - COVID-19; J12.82 - Pneumonia due to coronavirus disease 2019 Status: Acute Assessment and Plan: Patient reports that she tested positive for COVID on a home kit on 07/14/21 after being exposed by her son who was positive. She did develop typical COVID symptoms. Chest CT showed diffuse lung disease consistent with COVID pneumonia and she tested positive here. She presented with acute respiratory failure related to COVID. She was started on empiric antibiotics. DDimer was normal and remaining normal. CRP and LDH trending down but Ferritin still elevated. She received Tocilizumab 800mg IV (07/23). She has completed Remdesivir (07/26); continue dexamethasone (through 08/01). Continue Mucinex scheduled and Robitussin prn. [place] spray for the post-nasal drainage. Continue to monitor inflammatory markers. Continue droplet isolation. Wean oxygen as tolerated. She is Day 5 of Levaquin 750mg IV daily so will stop. (3) Polycythemia: Code(s): D75.1 - Secondary polycythemia Status: Acute Assessment and Plan: Hemoglobin 18.1 on admission. Consider chronic hypoxia, hemoconcentration, a combination of both, or even PCV. ABG 7.44/36/72 on 100% Fio2. Could have undiagnosed GABRIEL. Repeat Hgb down to 17. Continue to monitor. (4) Elevated LFTs: Code(s): R79.89 - Other specified abnormal findings of blood chemistry Status: Acute Assessment and Plan: Mild elevation of the LFTs most likely related to viral etiology. Repeat labs show improvement. Continue to monitor. Mild leukopenia related to viral etiology has resolved. Follow. (5) Elevated blood pressure reading: Code(s): R03.0 - Elevated blood-pressure reading, without diagnosis of hypertension Status: Acute Assessment and Plan: Blood pressure was elevated into the 140-150 range felt related to the stress response from the respiratory failure. Patient's blood pressure was reviewed on 07/27 Blood pressure remains well controlled now. Will continue to monitor. (6) Hypothyroidism: Code(s): E03.9 - Hypothyroidism, unspecified Status: Acute Assessment and Plan: TSH is normal. Continue Synthroid. (7) DVT prophylaxis: Code(s): Z29.9 - Encounter for prophylactic measures, unspecified Status: Acute Assessment and Plan: Lovenox Subjective Date/time seen: 07/27/21 11:50 Interval history: 55yo female with hypothyroidism here for COVID PNA with acute respiratory failure. Patient is unvaccinated. Patient's son developed COVID. Patient tested positive for COVID on July 14 even though she was asymptomatic at that time. Over the next week or so prior to admission, she developed typical COVID symptoms with malaise, fever, cough, nausea and diarrhea. She was treated with azithromycin, dexamethasone, Tessalon Perles and albuterol by her primary care doctor. Condition however worsen and she developed hypoxia thus presented to the emergency room for evaluation. SOB unchanged. No CP. Slight nauseous. Hypoxic when using the bedpan per RN. Refusing [place]. Exam Narrative: AF 98.3 108/70 63 26 90% 40L/min 95% FiO2 Gen - NARD Chest - bibasilar dry crackles, nml RR CV - RRR S1/S2. Tele showing no significant dysrhythmias. Abd -soft. Obese. NT. Ext - No pedal edema Psych - Nml mood and affect Skin - Warm and dry
[2021-07-27] MEDS: traZODone HCL 50 MG TABLET 100 MG PO (22:00)
[2021-07-28] VITALS (20 sets, daily range): BP systolic 112–164; BP diastolic 61–102; PULSE 74–114; RESP 20–34; TEMP 36.4–37.1; O2SAT 86–93; BMI 45.4
--- NOTE | 2021-07-28 02:24 | PC.NURSE ---
Patient continues to take off NRB mask and O2 sat falls to 85% without it. I have explained numerous times that the mask needs to stay on for adequate oxygenation. Patient is A&O x 3.l
--- NOTE | 2021-07-28 03:14 | PC.NURSE ---
O2 Sat running 86-88% on Airvo 40L and 95%. Had patient change to a prone position. O2sat increased to 91-92%. Will continue to monitor closely.
[2021-07-28] MEDS: LEVOTHYROXINE SODIUM 100 MCG TABLET PO (06:18)
[2021-07-28] MEDS: LEVOTHYROXINE SODIUM 75 MCG TABLET PO (06:18)
[2021-07-28 06:28] LABS: Basophils Percent Auto 0.2 % (0.2-1.2); Eosinophils Absolute Auto 0.1 K/mm3 (0-0.3); Eosinophils Percent Auto 0.9 % (0-4.4); Hematocrit 51.8 % (37.0-47.0); Hemoglobin 17.8 g/dL (12.0-15.0); Immature Granulocyte Percent A 0.8 % (0-0.5); Lymphocytes Absolute Auto 0.88 K/mm3 (0.9-3.2); Lymphocytes Percent Auto 7.2 % (18.3-44.2); Mean Corpuscular HGB Conc 34.4 g/dl (32-36); Mean Corpuscular Hemoglobin 30.6 pg (26-34); Mean Corpuscular Volume 89.2 fl (80-100); Mean Platelet Volume 8.6 fl (7.4-10.4); Monocytes Absolute Auto 0.3 K/mm3 (0.1-0.6); Monocytes Percent Auto 2.6 % (2.6-8.5); Neutrophils Absolute Auto 10.8 K/mm3 (1.3-6.7); Neutrophils Percent Auto 88.3 % (45.5-73.1); Platelet Count Result 278 k/mm3 (150-375); Red Blood Count 5.81 M/mm3 (4.2-5.4); White Blood Count 12.2 K/mm3 (4.5-10.0)
[2021-07-28 06:54] LABS: Alanine Aminotransferase 54 U/L (4-35); Albumin Level 3.6 g/dL (3.5-5.1); Alkaline Phosphatase 75 U/L (38-126); Anion Gap 8 mmol/L (8-16); Aspartate Amino Transferase 40 U/L (14-36); Bilirubin,Total 0.9 mg/dL (0.2-1.3); Blood Urea Nitrogen 23 mg/dL (7-17); CRP < 0.5 mg/dL (<1.0); Calcium 8.9 mg/dL (8.4-10.2); Carbon Dioxide 24 mmol/L (22-30); Chloride 104 mmol/L (98-107); Estimated CRCL calculation 100 ml/min; Estimated Glomerular Filt Rate > 60; Glucose 136 mg/dL (65-110); Lactate Dehydrogenase 1595 U/L (313-618); Sodium 136 mmol/L (137-145)
[2021-07-28 06:57] LABS: Potassium 3.8 mmol/L (3.4-5.0)
[2021-07-28] MEDS: guaiFENesin 12 HR 600 MG TABCR PO ×2 (08:37→20:40)
[2021-07-28] MEDS: ENOXAPARIN 40 MG/0.4 ML SYRINGE SUB-Q (08:37)
[2021-07-28] MEDS: FAMOTIDINE 20 MG TABLET 40 MG PO (08:37)
[2021-07-28] MEDS: ALBUTEROL SULFATE (*SP) AEROSOL 1 PUFF 2 PUFF INHALATION ×3 (09:06→20:41)
[2021-07-28] MEDS: BUMETANIDE INJ 1 MG/4 ML VIAL 2 MG IV PUSH (15:51)
[2021-07-28 16:06] LABS: Alveolar/Arterial O2 Gradient 587.3 mmHg; Base Excess ABG -0.4 mEq/l (+/-2.0); Fractional Inspired Oxygen 95 %; HCO3 ABG 22.8 mEq/l (22.0-26.0); Oxygen Content ABG 23.9 %vol (16.0-22.0); Oxygen Saturation ABG 90.2 % (95.0-100.0); PCO2 ABG 34.3 mmHg (35.0-45.0); PO2 ABG 55.3 mmHg (80.0-100.0); PO2 FiO2 Ratio Arterial Blood 0.58 %; Total Hemoglobin 19.2 g/dL (12.0-18.0); pH ABG 7.441 (7.350-7.450)
[2021-07-28 16:08] LABS: Device HIGH FLOW THERAPY; Modified Allen's Test Pass; Site Drawn LEFT RADIAL
--- NOTE | 2021-07-28 16:15 | PM.IMPN ---
Progress Note: A&P Assessment and Plan (1) Acute respiratory failure with hypoxia: Code(s): J96.01 - Acute respiratory failure with hypoxia Status: Acute Assessment and Plan: Secondary to diffuse COVID pneumonia noted on chest CT. No evidence of pulmonary emboli though sensitivity slightly limited by respiratory motion. Worsening on Airvo so NRB mask added back. She continued to be hypoxic so BiPAP started but her SpO2 dropped to 48% so changed back to AirVo and NRB. She is maintaining her SpO2 above 90%. Chest x-ray showing worsening COVID pneumonia. Will try a dose of Bumex. ABG showing 7.44/34/55 on current settings. Concern patient may tire out and may need intubation but unclear of her code status. Keep in IMU for now. Rn Intern notified earlier today. Night providers notified. Critical care time of 42 minutes spent caring for this patient (2) Pneumonia due to COVID-19 virus: Code(s): U07.1 - COVID-19; J12.82 - Pneumonia due to coronavirus disease 2019 Status: Acute Assessment and Plan: Patient reports that she tested positive for COVID on a home kit on 07/14/21 after being exposed by her son who was positive. She did develop typical COVID symptoms. Chest CT showed diffuse lung disease consistent with COVID pneumonia and she tested positive here. She presented with acute respiratory failure related to COVID. She was started on empiric antibiotics (Levaquin 750mg IV x 5 days). DDimer was normal and remaining normal. She received Tocilizumab 800mg IV (07/23). She has completed Remdesivir (07/26); continue dexamethasone (through 08/01). Continue Mucinex scheduled and Robitussin prn. [place] spray for the post-nasal drainage. CRP normal and Ferritin trending down; LDH higher today. Continue to monitor inflammatory markers. Continue droplet isolation. Wean oxygen as tolerated. Resume remdesivir for another 5 days. (3) Polycythemia: Code(s): D75.1 - Secondary polycythemia Status: Acute Assessment and Plan: Hemoglobin 18.1 on admission. Consider chronic hypoxia, hemoconcentration, a combination of both, or even PCV. ABG as above. Could have undiagnosed GABRIEL. Repeat Hgb down to 17. Continue to monitor. (4) Elevated LFTs: Code(s): R79.89 - Other specified abnormal findings of blood chemistry Status: Acute Assessment and Plan: Mild elevation of the LFTs most likely related to viral etiology. Repeat labs continue to show improvement. Continue to monitor. Mild leukopenia related to viral etiology has resolved. Follow. (5) Elevated blood pressure reading: Code(s): R03.0 - Elevated blood-pressure reading, without diagnosis of hypertension Status: Acute Assessment and Plan: Blood pressure was elevated into the 140-150 range felt related to the stress response from the respiratory failure. Patient's blood pressure was reviewed on 07/28 Blood pressure elevated at times still. Will continue to monitor. (6) Hypothyroidism: Code(s): E03.9 - Hypothyroidism, unspecified Status: Acute Assessment and Plan: TSH is normal. Continue Synthroid. (7) DVT prophylaxis: Code(s): Z29.9 - Encounter for prophylactic measures, unspecified Status: Acute Assessment and Plan: Lovenox Subjective Date/time seen: 07/28/21 16:15 Interval history: 55yo female with hypothyroidism here for COVID PNA with acute respiratory failure. Patient is unvaccinated. Patient was exposed to COVID and tested positive for COVID on 07/14/21. She was treated with azithromycin, dexamethasone, Tessalon Perles and albuterol by her primary care doctor. Condition worsen and she developed hypoxia thus presented to the ED. Patient with increasing SOB. Patient with desaturation when laying flat but does better when prone. She is now requiring non-rebreather continuously. She feels short of breath. No chest pain. She remains a full code
[2021-07-28] MEDS: REMDESIVIR 100 MG/NS 250 ML 100 MG/250 ML BAG 250 MG IVPB (18:25)
[2021-07-28] MEDS: traZODone HCL 50 MG TABLET 100 MG PO (20:40)
[2021-07-29] VITALS (23 sets, daily range): BP systolic 110–154; BP diastolic 53–97; PULSE 81–105; RESP 20–37; TEMP 35.5–36.9; O2SAT 86–93
[2021-07-29 04:54] LABS: Basophils Percent Auto 0.3 % (0.2-1.2); Eosinophils Absolute Auto 0.1 K/mm3 (0-0.3); Eosinophils Percent Auto 1.2 % (0-4.4); Hematocrit 52.7 % (37.0-47.0); Hemoglobin 18.4 g/dL (12.0-15.0); Immature Granulocyte Absolute 0.15 K/mm3 (0.00-0.031); Immature Granulocyte Percent A 1.4 % (0-0.5); Lymphocytes Absolute Auto 0.67 K/mm3 (0.9-3.2); Mean Corpuscular HGB Conc 34.9 g/dl (32-36); Mean Corpuscular Hemoglobin 30.3 pg (26-34); Mean Corpuscular Volume 86.7 fl (80-100); Mean Platelet Volume 8.7 fl (7.4-10.4); Monocytes Absolute Auto 0.4 K/mm3 (0.1-0.6); Monocytes Percent Auto 3.5 % (2.6-8.5); Neutrophils Absolute Auto 9.7 K/mm3 (1.3-6.7); Neutrophils Percent Auto 87.6 % (45.5-73.1); Platelet Count Result 325 k/mm3 (150-375); Red Blood Count 6.08 M/mm3 (4.2-5.4); Red Cell Distribution Width 12.8 % (11.5-14.5); White Blood Count 11.1 K/mm3 (4.5-10.0)
[2021-07-29 05:02] LABS: INR 1.1; Prothrombin Time 13.8 Seconds (11.1-14.7)
[2021-07-29 06:15] LABS: Alanine Aminotransferase 48 U/L (4-35); Albumin Level 3.7 g/dL (3.5-5.1); Alkaline Phosphatase 89 U/L (38-126); Anion Gap 12 mmol/L (8-16); Aspartate Amino Transferase 38 U/L (14-36); Bilirubin,Total 0.7 mg/dL (0.2-1.3); Blood Urea Nitrogen 26 mg/dL (7-17); Calcium 9.3 mg/dL (8.4-10.2); Carbon Dioxide 23 mmol/L (22-30); Chloride 105 mmol/L (98-107); Estimated CRCL calculation 88 ml/min; Estimated Glomerular Filt Rate > 60; Glucose 146 mg/dL (65-110); Lactate Dehydrogenase 1683 U/L (313-618); Potassium 3.6 mmol/L (3.4-5.0); Sodium 140 mmol/L (137-145)
[2021-07-29] MEDS: LEVOTHYROXINE SODIUM 75 MCG TABLET PO (06:34)
[2021-07-29] MEDS: LEVOTHYROXINE SODIUM 100 MCG TABLET PO (06:34)
[2021-07-29] MEDS: ALBUTEROL SULFATE (*SP) AEROSOL 1 PUFF 2 PUFF INHALATION ×4 (08:14→20:34)
[2021-07-29] MEDS: FAMOTIDINE 20 MG TABLET 40 MG PO (09:10)
[2021-07-29] MEDS: BENZONATATE 100 MG CAPSULE PO (09:10)
[2021-07-29] MEDS: guaiFENesin 12 HR 600 MG TABCR PO ×2 (09:10→21:25)
[2021-07-29] MEDS: ENOXAPARIN 40 MG/0.4 ML SYRINGE SUB-Q (09:10)
[2021-07-29] MEDS: REMDESIVIR 100 MG/NS 250 ML 100 MG/250 ML BAG 250 MG IVPB (10:45)
--- NOTE | 2021-07-29 10:50 | PM.IMPN ---
Progress Note: A&P Assessment and Plan (1) Acute respiratory failure with hypoxia: Code(s): J96.01 - Acute respiratory failure with hypoxia Status: Acute Assessment and Plan: Secondary to diffuse COVID pneumonia noted on chest CT. No evidence of pulmonary emboli though sensitivity slightly limited by respiratory motion. Worsening on Airvo so NRB mask added back. She continued to be hypoxic so BiPAP started but her SpO2 dropped to 48% so changed back to AirVo and NRB. She is maintaining her SpO2 in the high 80's%. Chest x-ray yesterday showing worsening COVID pneumonia. She received one dose of Bumex without much benefit (UOP 950 yesterday and 450mL so far today). ABG yesterday showing 7.44/34/55 on current settings. Since she is now determined to be a full code, will move to ICU for closer monitoring. (2) Pneumonia due to COVID-19 virus: Code(s): U07.1 - COVID-19; J12.82 - Pneumonia due to coronavirus disease 2019 Status: Acute Assessment and Plan: Patient reports that she tested positive for COVID on a home kit on 07/14/21 after being exposed by her son who was positive. She did develop typical COVID symptoms. She presented with acute respiratory failure related to COVID. Chest CT showed diffuse lung disease consistent with COVID pneumonia and she tested positive here. She was started on empiric antibiotics (Levaquin 750mg IV x 5 days). DDimer was normal and remained normal. She received Tocilizumab 800mg IV (07/23). She has completed Remdesivir (07/26) but resumed for another 5 days on 07/28 due to deteriorating course; continue dexamethasone (through 08/01). Continue Mucinex scheduled and Robitussin prn. [place] spray for the post-nasal drainage. CRP normal now. Ferritin continues to trend down; LDH higher again today. Continue to monitor inflammatory markers. Continue droplet isolation. Wean oxygen as tolerated. (3) Polycythemia: Code(s): D75.1 - Secondary polycythemia Status: Acute Assessment and Plan: Hemoglobin 18.1 on admission. Consider chronic hypoxia, hemoconcentration, a combination of both, or even PCV. ABG as above. Could have undiagnosed GABRIEL. Repeat Hgb dropped down to 15 but now up to 17-18 range. Partially related to the Bumex. Check HECTOR-2 and Epo levels. Continue to monitor. Can not give IV fluids. Consider the benefits of phlebotomy. Consult Hematology. (4) Elevated LFTs: Code(s): R79.89 - Other specified abnormal findings of blood chemistry Status: Acute Assessment and Plan: Mild elevation of the LFTs most likely related to viral etiology. Repeat labs continue to show improvement. Continue to monitor on Remdesivir. Mild leukopenia related to viral etiology has resolved. Follow. (5) Elevated blood pressure reading: Code(s): R03.0 - Elevated blood-pressure reading, without diagnosis of hypertension Status: Acute Assessment and Plan: Blood pressure was elevated into the 140-150 range felt related to the stress response from the respiratory failure. Patient's blood pressure was reviewed on 07/29 Blood pressure well controlled. Will continue to monitor. (6) Hypothyroidism: Code(s): E03.9 - Hypothyroidism, unspecified Status: Acute Assessment and Plan: TSH is normal. Continue Synthroid. (7) DVT prophylaxis: Code(s): Z29.9 - Encounter for prophylactic measures, unspecified Status: Acute Assessment and Plan: Lovenox Subjective Date/time seen: 07/29/21 10:50 Interval history: 55yo female with hypothyroidism here for COVID PNA with acute respiratory failure. Patient is unvaccinated. Patient was exposed to COVID and tested positive for COVID on 07/14/21. She was treated with azithromycin, dexamethasone, Tessalon Perles and albuterol by her primary care doctor. Condition worsen with hypoxia and thus presented to the ED. No issus overnight. She now has decided to allow her
--- NOTE | 2021-07-29 12:49 | PC.NURSE ---
This patient, Digna Quintero, was received from [facility] on 07/29/21 at 1230. Report received from JAGRUTI Velasquez. Patient/family oriented to unit policies and routines.
--- NOTE | 2021-07-29 12:56 | PC.NURSE ---
This patient, Digna Quintero, was transferred to [ icu] on 07/29/21 at 1230. Personal belongings sent with patient. Report given to [marcelle kearns rn ]. Appropriate documentation sent with patient.
--- NOTE | 2021-07-29 13:27 | PCCARD ---
07/29/21 13:19 - PATIENT PRONE. TALKED TO JOSHUA CHAND - SHE SAID SHE WILL ALWAYS BE PRONE FOR MOST OF THE TIME, 18+ HOURS PER DAY. ECHOCARDIOGRAM CAN NOT BE DONE WITH PATIENT IN THE PRONE POSITION. JOSHUA WILL CALL CARDIOLOGY WHEN ECHOCARDIOGRAM IS WANTED AND CAN BE DONE.
--- NOTE | 2021-07-29 13:30 | WPDCNINT ---
Assessment and Plan Assessment and plan (1) Acute respiratory failure with hypoxia: Code(s): J96.01 - Acute respiratory failure with hypoxia Status: Acute Assessment and Plan: Acute Respiratory failure secondary to COVID-19 pneumonia Patient currently on Airvo at maximum flow and FiO2 along with a non-rebreather mask She is currently saturating 90- 91%. She did not tolerate BiPAP yesterday. Patient appears tired but not in any distress and able to speak in full sentences. Mildly tachypneic but no use of accessory muscles at this time. She states that she does not want to be intubated unless there is no other option left. I have explained to her that if we are unable to maintain her oxygenation with current oxygen support then we will not be left with any other choice but to intubate her and she is agreeable if we reach that point. Continue close ICU monitoring as patient may need intubation. She is laying in prone position by herself and tolerating it adequately at this time She did receive a dose of Lasix but I do not feel patient is volume overloaded and does appears hemoconcentrated and would benefit for any further diuresis Bronchodilators P.r.n. Tessalon and Robitussin DM for cough Chest x-ray 07/28 Progression of diffuse COVID pneumonia. CTA lungs 07/22 1. No pulmonary embolus, sensitivity slightly limited by respiratory motion. 2. Diffuse lung disease, consistent with COVID 19 pneumonia. (2) Pneumonia due to COVID-19 virus: Code(s): U07.1 - COVID-19; J12.82 - Pneumonia due to coronavirus disease 2019 Status: Acute Assessment and Plan: SARS-CoV-2 PCR positive on 07/22 Patient is in Airborne, Droplet and Contact Isolation Continue dexamethasone which was started on 07/23 Patient is currently on 2nd 5 day course remdesivir which was initiated on 07/29 She completed a 5 day course of Levaquin She received a dose of tocilizumab on 07/23 Monitor inflammatory markers. Her CRP is normal (3) Hypothyroidism: Code(s): E03.9 - Hypothyroidism, unspecified Status: Acute Assessment and Plan: Continue levothyroxine (4) Hyperglycemia: Code(s): R73.9 - Hyperglycemia, unspecified Status: Acute Assessment and Plan: Likely secondary to steroids will start sliding scale insulin to monitor and treat as needed (5) Gastroesophageal reflux disease: Code(s): K21.9 - Gastro-esophageal reflux disease without esophagitis Status: Acute Assessment and Plan: Change Pepcid to PPI (6) Nausea: Code(s): R11.0 - Nausea Status: Acute Assessment and Plan: No vomiting reported Could be secondary to GERD especially when patient is lying on her belly P.r.n. Zofran Change Pepcid to PPI Additional Plan DVT prophylaxis -Lovenox subQ Stress ulcer prophylaxis -PPI Nutrition -regular diet is ordered intake is poor due to her respiratory failure Code Status - Full Code which I clarified with patient Total Critical Care Time - 32 minutes Due to a high probability of clinically significant, life threatening deterioration, the patient required my highest level of preparedness to intervene emergently and I personally spent this critical care time directly and personally managing the patient. This critical care time included obtaining a history; examining the patient; pulse oximetry; ordering and review of studies; arranging urgent treatment with development of a management plan; evaluation of patient's response to treatment; frequent reassessment; and discussions with other providers. It was exclusive of separately billable procedures and treating other patients and teaching time. Please see Assessment and Plan section and the rest of the note for further information on patient assessment and treatment Care Connector Consult Note Consult date: 07/29/21 HPI: Digna Quintero is a 55 year old female with past medical history of hypothyroidism who was admitted o
[2021-07-29 13:49] LABS: Add Urine Microscopic? YES; Appearance Urine Cloudy (Clear); Bilirubin Urine Negative (Negative); Blood Urine Negative (Negative); Color Urine Yellow (Yellow); Glucose Urine UA Negative (Negative); Ketones Urine 1+ mg/dL (Negative); Leukocyte Esterase Ur Negative LEU/UL (NEGATIVE); Mucus Urine Heavy /lpf; Nitrate Urine Negative (Negative); Protein Urine 1+ mg/dL (Negative); Specific Grav Ur 1.026 (1.001-1.035); Urobilinogen Urine Negative mg/dL (<2.0)
[2021-07-29] MEDS: traZODone HCL 50 MG TABLET 100 MG PO (21:25)
[2021-07-30] VITALS (29 sets, daily range): BP systolic 90–134; BP diastolic 51–93; PULSE 75–128; RESP 24–34; TEMP 36.3–37.1; O2SAT 84–95; BMI 45.6
--- NOTE | 2021-07-30 | ECHO_ITS ---
Patient Info Name: Digna Quintero Age: 56 years : 1965 Gender: Female Ht: 64 in Wt: 264 lbs BSA: 2.39 m2 HR: 105 bpm BP: 124 / 88 mmHg Technical Quality: Good Exam Date: 07/30/2021 1:37 PM Exam Location: [facility] Patient Status: Inpatient Admit Date: 07/23/2021 Staff Ordering Physician: Mark Butt MD Disposition Clerk: Chuckie Tello, IMAN, RT Attending Provider: Mark Butt MD Exam Type: CA echo doppler color flow Study Info Indications J96.91 - Respiratory failure, unspecified with hypoxia Complete two-dimensional, color flow and Doppler transthoracic echocardiogram is performed. Summary 1. Complete two-dimensional, color flow and Doppler transthoracic echocardiogram is performed. 2. Left ventricular chamber dimension is normal. 3. Left ventricular systolic function is normal, estimated at 60-65%. 4. There is moderately increased left ventricular wall thickness. 5. The left ventricular diastolic function is grade I diastolic dysfunction. 6. Global longitudinal strain is abnormal at -11.5%. 7. There is mild tricuspid valve regurgitation. 8. Mild pulmonary hypertension, estimated pulmonary arterial systolic pressure is 44 mmHg. Left Ventricle Global longitudinal strain is abnormal at -11.5%. Tissue doppler is not performed. Left ventricular chamber dimension is normal. Left ventricular systolic function is normal, estimated at 60-65%. There is moderately increased left ventricular wall thickness. The left ventricular diastolic function is grade I diastolic dysfunction. Right Ventricle Right ventricular chamber dimension is normal. Right ventricular systolic function is normal. Left Atria Left atrial chamber dimension is normal. Right Atria Right atrial chamber dimension is normal. Aortic Valve The aortic valve is trileaflet. There is no aortic valve stenosis. There is no aortic valve regurgitation. Pulmonic Valve There is no pulmonic regurgitation. Mitral Valve There is no mitral valve stenosis. There is no mitral valve regurgitation. Tricuspid Valve There is mild tricuspid valve regurgitation. Mild pulmonary hypertension, estimated pulmonary arterial systolic pressure is 44 mmHg. Pericardium/Pleural There is no pericardial effusion. Inferior Vena Cava Normal inferior vena cava with >50% collapse upon inspiration consistent with normal right atrial pressure, 5 mmHg. Aorta The aortic root size at the sinus of Valsalva is normal. Left Ventricular Outflow Tract Name Value Normal LVOT 2D LVOT Diameter 2.0 cm LVOT Doppler LVOT Peak Gradient 3 mmHg LVOT Mean Gradient 2 mmHg LVOT VTI 14 cm LVOT VTI/AV VTI Ratio 0.9 LVOT Stroke Volume 41 ml LVOT CO 4.4 l/min LVOT CI 1.8 l/min/m2 Mitral Valve Name Value Normal -----
[2021-07-30] MEDS: MELATONIN 3 MG TABLET PO (02:19)
[2021-07-30] MEDS: ACETAMINOPHEN 325 MG TABLET 650 MG PO ×2 (02:19→09:02)
[2021-07-30] MEDS: LEVOTHYROXINE SODIUM 100 MCG TABLET PO (06:24)
[2021-07-30] MEDS: LEVOTHYROXINE SODIUM 75 MCG TABLET PO (06:24)
[2021-07-30] MEDS: ENOXAPARIN 40 MG/0.4 ML SYRINGE SUB-Q (09:02)
[2021-07-30] MEDS: PANTOPRAZOLE SODIUM IV 40 MG VIAL IV PUSH (09:02)
[2021-07-30] MEDS: guaiFENesin 12 HR 600 MG TABCR PO (09:02)
--- NOTE | 2021-07-30 09:05 | WPDINTPN ---
Progress Note: A&P Assessment and Plan (1) Acute respiratory failure with hypoxia: Code(s): J96.01 - Acute respiratory failure with hypoxia Status: Acute Assessment and Plan: Acute Respiratory failure secondary to COVID-19 pneumonia Patient was on Airvo at maximum flow and FiO2 along with a non-rebreather mask for last many days. She was doing self proning for most of the day. She did not tolerate BiPAP on 07/28 Patient appears tired and worn out this morning. She laid on her back and desaturate. Her saturations dropped into low 70s patient was given adequate time to recover but her saturations did not improve and remained in high 70s to low 80s. I recommended intubation at that time. Patient was agreeable but she asked me to speak to her first. I spoke to patient's Tee by phone and explained him the situation of persistent hypoxia which is not responsive to noninvasive oxygen supplementation. Her reluctantly agreed and told me that if patient is agreeable to intubation then he has no issues with it. Patient was intubated without any difficulty but patient remained hypoxic post intubation low saturation. ETT was adjusted after chest x-ray. Patient was bag ventilated for prolonged period of time with PEEP. Patient was given additional sedation and neuromuscular zakia to prevent asynchrony. Finely patient said improved into high 80s. Chest x-ray reviewed and ABG pending Will plan to place patient in prone position later today once stabilized CTA lungs 07/22 1. No pulmonary embolus, sensitivity slightly limited by respiratory motion. 2. Diffuse lung disease, consistent with COVID 19 pneumonia. (2) Pneumonia due to COVID-19 virus: Code(s): U07.1 - COVID-19; J12.82 - Pneumonia due to coronavirus disease 2019 Status: Acute Assessment and Plan: SARS-CoV-2 PCR positive on 07/22 Patient is in Airborne, Droplet and Contact Isolation Continue dexamethasone which was started on 07/23 Patient is currently on 2nd 5 day course remdesivir which was initiated on 07/29 She completed a 5 day course of Levaquin She received a dose of tocilizumab on 07/23 Monitor inflammatory markers. Her CRP is normal (3) Hypothyroidism: Code(s): E03.9 - Hypothyroidism, unspecified Status: Acute Assessment and Plan: Continue levothyroxine (4) Hyperglycemia: Code(s): R73.9 - Hyperglycemia, unspecified Status: Acute Assessment and Plan: Likely secondary to steroids Continue sliding scale insulin (5) Gastroesophageal reflux disease: Code(s): K21.9 - Gastro-esophageal reflux disease without esophagitis Status: Acute Assessment and Plan: Continue PPI (6) Nausea: Code(s): R11.0 - Nausea Status: Acute Assessment and Plan: Patient now sedated and intubated OG tube in place was placed suction Additional Plan DVT prophylaxis -Lovenox subQ Stress ulcer prophylaxis -PPI Nutrition -start. Tube feeds today Code Status - Full Code which I clarified with patient and I also spoke to patient's by phone who was agreeable with intubation and understood the guarded prognosis due to severe respiratory failure from COVID 19 pneumonia Total Critical Care Time - 60 minutes Due to a high probability of clinically significant, life threatening deterioration, the patient required my highest level of preparedness to intervene emergently and I personally spent this critical care time directly and personally managing the patient. This critical care time included obtaining a history; examining the patient; pulse oximetry; ordering and review of studies; arranging urgent treatment with development of a management plan; evaluation of patient's response to treatment; frequent reassessment; and discussions with other providers. It was exclusive of separately billable procedures and treating other patients and teaching time. Please see Assessment and P
[2021-07-30] MEDS: ALBUTEROL SULFATE (*SP) AEROSOL 1 PUFF 2 PUFF INHALATION (09:25)
[2021-07-30] MEDS: RAPID SEQUENCE INTUBATION KIT 1 EACH (10:00)
[2021-07-30] MEDS: FENTANYL 2,500MCG/NS250ML(*CRX 2,500 MCG/250 ML BAG IV CONT (10:24)
[2021-07-30] MEDS: MIDAZOLAM 100MG/NS 100ML(*CRX) 100 MG/100 ML BAG IV CONT (10:25)
[2021-07-30] MEDS: CISATRACURIUM BESYLATE 200 MG in DEXTROSE 5% 80 ML 10.84 ML IV CONT (10:32)
--- NOTE | 2021-07-30 10:35 | WPDPROCEDUR ---
Procedures Intubation Intubation Date: 07/30/21 Intubation Time: 10:00 Consent: Verbal consent was obtained from patient and patient's by phone A pre-procedural Time-Out was completed immediately before starting the procedure and confirmed: Patient Identification, Site, Procedure, Patient Position and the Availability of Requisite Equipment: Yes Sedative: etomidate Mg given: 20 Paralytic: succinylcholine Mg given: 100 Laryngoscope: fiber optic video scope ET tube size: 8 Tube secured depth (cm): 22 Tube secured location: lips Tube placement confirmation: visualized tube passing through cords, equal breath sounds bilaterally, no breath sounds over epigastrium and confirmation by capnometry Patient tolerated procedure: well and other Intubation complications: hypoxia Additional comments: Post intubation patient remained hypoxic with low saturation. Patient was bagged with Ambu bag and PEEP valve. ET tube was withdrawn after review of chest x-ray. Patient was given additional sedation of 4 mg Versed was followed by 50 mg of rocuronium to prevent patient ventilator asynchrony. Later patient was given another 100 mcg of fentany IV push. Patien was bag ventilated for extended periods time to get her saturations up to high 80s.. When I left the room patient's saturation was 92%.
[2021-07-30] MEDS: LIDOCAINE HCL 1% PF INJ 5 ML VIAL INFILTRATE (11:00)
[2021-07-30 11:39] LABS: Alveolar/Arterial O2 Gradient 553.4 mmHg; Base Excess ABG -4.7 mEq/l (+/-2.0); Carboxyhemoglobin 0.1 % THb (0-2.0); Fractional Inspired Oxygen 100 %; HCO3 ABG 25.1 mEq/l (22.0-26.0); Methemoglobin ABG 0.6 %THb (0-1.5); Oxygen Content ABG 27.3 %vol (16.0-22.0); Oxygen Saturation ABG 95.7 % (95.0-100.0); Oxyhemoglobin 94.7 % THb (90.0-100.0); PO2 ABG 95.8 mmHg (80.0-100.0); PO2 FiO2 Ratio Arterial Blood 0.96 %; Reduced Hemoglobin 4.6 %THb (0-5.0); Total Hemoglobin 20.5 g/dL (12.0-18.0)
[2021-07-30 11:42] LABS: PCO2 ABG 63.8 mmHg (35.0-45.0); pH ABG 7.213 (7.350-7.450)
[2021-07-30 11:43] LABS: Device VENTILATOR; Modified Allen's Test Pass; Site Drawn LEFT RADIAL
[2021-07-30 11:44] LABS: Arterial Blood Gas PEEP 15 cmH2O; Arterial Blood Gas Tidal Volume 380 ml; Arterial Blood Gas Vent Mode CMV; Arterial Blood Gas Ventilator rate 24 /MIN
[2021-07-30 12:09] LABS: Basophils Absolute Auto 0.1 K/mm3 (0.0-0.1); Basophils Percent Auto 0.3 % (0.2-1.2); Eosinophils Absolute Auto 0.1 K/mm3 (0-0.3); Eosinophils Percent Auto 0.3 % (0-4.4); Hematocrit 55.2 % (37.0-47.0); Hemoglobin 18.5 g/dL (12.0-15.0); Immature Granulocyte Absolute 0.26 K/mm3 (0.00-0.031); Immature Granulocyte Percent A 1.1 % (0-0.5); Lymphocytes Absolute Auto 0.58 K/mm3 (0.9-3.2); Lymphocytes Percent Auto 2.5 % (18.3-44.2); Mean Corpuscular HGB Conc 33.5 g/dl (32-36); Mean Corpuscular Hemoglobin 30.4 pg (26-34); Mean Corpuscular Volume 90.8 fl (80-100); Mean Platelet Volume 9.5 fl (7.4-10.4); Monocytes Absolute Auto 0.4 K/mm3 (0.1-0.6); Monocytes Percent Auto 1.9 % (2.6-8.5); Neutrophils Absolute Auto 21.9 K/mm3 (1.3-6.7); Neutrophils Percent Auto 93.9 % (45.5-73.1); Platelet Count Result 169 k/mm3 (150-375); Red Blood Count 6.08 M/mm3 (4.2-5.4); Red Cell Distribution Width 13.2 % (11.5-14.5); White Blood Count 23.3 K/mm3 (4.5-10.0)
[2021-07-30 12:53] LABS: INR 1.3; Prothrombin Time 15.6 Seconds (11.1-14.7)
[2021-07-30 13:12] LABS: Alanine Aminotransferase 50 U/L (4-35); Albumin Level 3.6 g/dL (3.5-5.1); Alkaline Phosphatase 138 U/L (38-126); Anion Gap 8 mmol/L (8-16); Aspartate Amino Transferase 129 U/L (14-36); Bilirubin,Total 1.2 mg/dL (0.2-1.3); Blood Urea Nitrogen 31 mg/dL (7-17); Calcium 9.2 mg/dL (8.4-10.2); Carbon Dioxide 28 mmol/L (22-30); Chloride 105 mmol/L (98-107); Estimated CRCL calculation 115 ml/min; Estimated Glomerular Filt Rate > 60; Glucose 261 mg/dL (65-110); Potassium 4.8 mmol/L (3.4-5.0); Sodium 141 mmol/L (137-145)
[2021-07-30] MEDS: REMDESIVIR 100 MG/NS 250 ML 100 MG/250 ML BAG 250 MG IVPB (14:10)
--- NOTE | 2021-07-30 14:17 | PM.IMPN ---
Progress Note: A&P Assessment and Plan (1) Acute respiratory failure with hypoxia: Code(s): J96.01 - Acute respiratory failure with hypoxia Status: Acute Assessment and Plan: Secondary to diffuse COVID pneumonia noted on chest CT. No evidence of pulmonary emboli though sensitivity slightly limited by respiratory motion. Worsening on Airvo so NRB mask added back and moved to the ICU. She is maintaining her SpO2 in the mid to high 80's%. Chest x-ray showing worsening COVID pneumonia. She is now a full code. A few hours later, patient more hypxic requiring intubation. ABG noted. (2) Pneumonia due to COVID-19 virus: Code(s): U07.1 - COVID-19; J12.82 - Pneumonia due to coronavirus disease 2018 Status: Acute Assessment and Plan: Patient reports that she tested positive for COVID on a home kit on 07/14/21 after being exposed by her son who was positive. She did develop typical COVID symptoms. She presented with acute respiratory failure related to COVID. Chest CT showed diffuse lung disease consistent with COVID pneumonia and she tested positive here. She was started on empiric antibiotics (Levaquin 750mg IV x 5 days). DDimer was normal and remained normal. She received Tocilizumab 800mg IV (07/23). She has completed Remdesivir (07/26) but resumed for another 5 days on 07/28 due to deteriorating course; continue dexamethasone (through 08/01). Continue Mucinex scheduled and Robitussin prn. [place] spray for the post-nasal drainage. Continue to monitor inflammatory markers intermittently. Continue droplet isolation. (3) Polycythemia: Code(s): D75.1 - Secondary polycythemia Status: Acute Assessment and Plan: Hemoglobin 18.1 on admission. Consider chronic hypoxia, hemoconcentration, a combination of both, or even PCV. ABG as above. Could have undiagnosed GABRIEL. Repeat Hgb dropped down to 15 but now up to 17-18 range. Partially related to the Bumex. HECTOR-2 and Epo levels ordered. Continue to monitor. Hematology consult ordered. (4) Elevated LFTs: Code(s): R79.89 - Other specified abnormal findings of blood chemistry Status: Acute Assessment and Plan: Mild elevation of the LFTs most likely related to viral etiology. Repeat labs showing AST/ALT higher today. Continue to monitor on Remdesivir. Mild leukopenia resolved. Follow. (5) Elevated blood pressure reading: Code(s): R03.0 - Elevated blood-pressure reading, without diagnosis of hypertension Status: Acute Assessment and Plan: Blood pressure was elevated into the 140-150 range felt related to the stress response from the respiratory failure. Patient's blood pressure was reviewed on 07/30 Blood pressure better controlled. Will continue to monitor. (6) Hypothyroidism: Code(s): E03.9 - Hypothyroidism, unspecified Status: Acute Assessment and Plan: TSH is normal. Continue Synthroid. (7) DVT prophylaxis: Code(s): Z29.9 - Encounter for prophylactic measures, unspecified Status: Acute Assessment and Plan: Lovenox (8) Hyperglycemia: Code(s): R73.9 - Hyperglycemia, unspecified Status: Acute Assessment and Plan: Glucose has been mildly elevated but now into the 200's. Start sliding scale and hypoglycemia protocol. Check A1c Subjective Date/time seen: 07/30/21 14:17 Interval history: 55yo female with hypothyroidism here for COVID PNA with acute respiratory failure. Patient is unvaccinated. Patient was exposed to COVID and tested positive for COVID on 07/14/21. She was treated with azithromycin, dexamethasone, Tessalon Perles and albuterol by her primary care doctor. Condition worsen with hypoxia and thus presented to the ED. Patient maintaining her SpO2>85% for the most part. She feels SOB but no change. Slight pleuritic chest pain. Slight nausea. Tolerating some oral intake. (after my visit, patient became more hypoxic requ
[2021-07-30 14:19] LABS: Glucose Point of Care 253 mg/dl (65-105)
[2021-07-30] MEDS: INSULIN ASPART (*BKC) 100 UNITS/ML SUB-Q ×2 (14:23→18:25)
--- NOTE | 2021-07-30 15:53 | PDONCCN ---
HPI - Date of Consult Date/Time: 07/30/21 15:53 Requesting Physician: Otf Butt MD Primary Care Provider: Nini Donohue, [employer] APPRENTICE-BC - Consult Narrative Reason for consult: Erythrocytosis and leukocytosis Narrative: Digna Quintero is a 55 year old female who has history of hypothyroidism and COVID-19 infection. Patient came into the hospital with shortness of breath and hypoxemia. She is currently intubated and sedated. According to the nursing staff description and chart review patient was not feeling well for last 7-10 days duration. She was dealing with generalize malaise body aches and fever of up to 104. She has loss of appetite along with cough and diarrhea. On arrival to the ER her over decision saturation was 81%. She was started on [address] chest was performed that showed no evidence of PE. There was diffuse lung disease consistent with COVID-19 pneumonia. Labs showed hemoglobin of 18.1 with hematocrit of 55.2. White blood cell count was elevated at 23.3. Patient is non vaccinated. Review of Systems - Review of Systems All systems reviewed & are unremarkable except as noted in HPI and [facility] Medical History: Medical History (Last Reviewed 07/29/21 @ 13:39 by Elton Sanchez MD) Arthritis COVID-19 Onset Date: 12/2019 Gastroesophageal reflux disease Hypothyroidism Shingles Onset Date: 2009 Surgical History: Surgical History (Last Reviewed 07/29/21 @ 13:39 by Elton Sanchez MD) History of bunionectomy History of cholecystectomy History of tonsillectomy History of ventral hernia repair Family History: Family History (Last Reviewed 07/29/21 @ 13:39 by Elton Sanchez MD) Other Hypertension - Social History Social History: Social History (Last Reviewed 07/29/21 @ 13:39 by Elton Sanchez MD) Alcohol Use: Alcohol intake: current Drinks per week: 0 Substance Use: Substance use: never Substance use type: does not use Others: Spiritual care concerns: No Smoking Status: Smoking status: Never smoker Meds Home Medications Medication Instructions Recorded Confirmed Type famotidine 40 mg PO DAILY 07/22/21 07/22/21 History levothyroxine [Euthyrox] 175 mcg PO DAILY 07/22/21 07/22/21 History meloxicam 15 mg PO DAILY 07/22/21 07/22/21 History trazodone 100 mg PO HS 07/22/21 07/22/21 History Allergies Allergy/AdvReac Type Severity Reaction Status Date / Time Penicillins Allergy Anaphylactic Verified 07/22/21 18:03 Shock latex AdvReac Redness of Verified 07/22/21 18:03 Skin Results - Labs CBC & Chem 7: 07/30/21 11:35 07/30/21 12:30 Labs: Short CBC 07/30/21 Range/Units 11:35 WBC 23.3 H (4.5-10.0) K/mm3 Hgb 18.5 H (12.0-15.0) g/dL Hct 55.2 H (37.0-47.0) % Plt Count 169 (150-375) k/mm3 [facility] 07/30/21 12:30 Sodium 141 Potassium 4.8 Chloride 105 Carbon Dioxide 28 BUN 31 H Creatinine 0.60 L Glucose 261 H Calcium 9.2 Liver Function 07/30/21 Range/Units 12:30 Total Bilirubin 1.2 (0.2-1.3) mg/dL AST 129 H (14-36) U/L ALT 50 H (4-35) U/L Alkaline Phosphatase 138 H (38-126) U/L Albumin 3.6 (3.5-5.1) g/dL Assessment and Plan - Additional Plan Erythrocytosis. Patient is obese 55-year-old female diagnosed with COVID-19 pneumonia. Currently intubated. This is likely is reactive/secondary erythrocytosis from her hypoxemic state obesity and likely sleep apnea as well. Erythropoietin level and JAK2 mutation testing has been ordered. Given her unstable situation and hypotension we would not recommend phlebotomy at this time until she is more stable. Continue prophylactic Lovenox for thromboembolic prevention. Leukocytosis. Again this is also likely reactive in this current setting. Other possibility is drug-induced secondary to steroid. Possibility of myeloproliferative disorder is unlikely. Further workup
[2021-07-30 15:58] LABS: Magnesium 2.3 mg/dL (1.6-2.3)
[2021-07-30] MEDS: CENTRAL LINE FLUSH 10 ML IV PUSH ×2 (16:49→20:52)
[2021-07-30 18:24] LABS: Glucose Point of Care 229 mg/dl (65-105)
[2021-07-30] MEDS: CISATRACURIUM BESYLATE 200 MG in DEXTROSE 5% 80 ML 7.22 ML IV CONT (20:53)
[2021-07-31] VITALS (38 sets, daily range): BP systolic 95–135; BP diastolic 59–100; PULSE 76–127; RESP 30; TEMP 36.2–36.6; O2SAT 94–97
[2021-07-31] MEDS: MINERAL OIL/WHITE PETROLATUM OINTMENT 1 APPLIC EACH EYE ×3 (00:29→21:06)
[2021-07-31 00:35] LABS: Glucose Point of Care 155 mg/dl (65-105)
[2021-07-31] MEDS: MIDAZOLAM 100MG/NS 100ML(*CRX) 100 MG/100 ML BAG IV CONT (03:40)
[2021-07-31] MEDS: FENTANYL 2,500MCG/NS250ML(*CRX 2,500 MCG/250 ML BAG 12.5 MCG IV CONT (03:44)
[2021-07-31 04:31] LABS: Alveolar/Arterial O2 Gradient 463.7 mmHg; Base Excess ABG -0.1 mEq/l (+/-2.0); Carboxyhemoglobin 0.2 % THb (0-2.0); Device VENTILATOR; Fractional Inspired Oxygen 85 %; HCO3 ABG 27.3 mEq/l (22.0-26.0); Methemoglobin ABG 0.7 %THb (0-1.5); Modified Allen's Test Pass; Oxygen Content ABG 26.5 %vol (16.0-22.0); Oxygen Saturation ABG 95.9 % (95.0-100.0); Oxyhemoglobin 95.6 % THb (90.0-100.0); PO2 ABG 87.4 mmHg (80.0-100.0); PO2 FiO2 Ratio Arterial Blood 1.03 %; Reduced Hemoglobin 3.5 %THb (0-5.0); Site Drawn LEFT RADIAL; Total Hemoglobin 19.7 g/dL (12.0-18.0); pH ABG 7.329 (7.350-7.450)
[2021-07-31 04:32] LABS: Arterial Blood Gas PEEP 15 cmH2O; Arterial Blood Gas Tidal Volume 380 ml; Arterial Blood Gas Vent Mode CMV; Arterial Blood Gas Ventilator rate 30 /MIN
[2021-07-31 06:38] LABS: Basophils Percent Auto 0.2 % (0.2-1.2); Eosinophils Absolute Auto 0.1 K/mm3 (0-0.3); Eosinophils Percent Auto 0.6 % (0-4.4); Hematocrit 52.3 % (37.0-47.0); Hemoglobin 17.4 g/dL (12.0-15.0); Immature Granulocyte Percent A 1.3 % (0-0.5); Lymphocytes Absolute Auto 0.81 K/mm3 (0.9-3.2); Lymphocytes Percent Auto 5.1 % (18.3-44.2); Mean Corpuscular HGB Conc 33.3 g/dl (32-36); Mean Corpuscular Hemoglobin 30.6 pg (26-34); Mean Corpuscular Volume 92.1 fl (80-100); Mean Platelet Volume 9.3 fl (7.4-10.4); Monocytes Absolute Auto 0.7 K/mm3 (0.1-0.6); Monocytes Percent Auto 4.1 % (2.6-8.5); Neutrophils Absolute Auto 14.2 K/mm3 (1.3-6.7); Neutrophils Percent Auto 88.7 % (45.5-73.1); Platelet Count Result 135 k/mm3 (150-375); Red Blood Count 5.68 M/mm3 (4.2-5.4); Red Cell Distribution Width 13.3 % (11.5-14.5)
[2021-07-31 06:47] LABS: Alanine Aminotransferase 170 U/L (4-35); Albumin Level 3.2 g/dL (3.5-5.1); Alkaline Phosphatase 155 U/L (38-126); Anion Gap 5 mmol/L (8-16); Aspartate Amino Transferase 117 U/L (14-36); Bilirubin,Total 0.8 mg/dL (0.2-1.3); Blood Urea Nitrogen 27 mg/dL (7-17); Calcium 8.8 mg/dL (8.4-10.2); Carbon Dioxide 30 mmol/L (22-30); Chloride 105 mmol/L (98-107); Estimated CRCL calculation 134 ml/min; Estimated Glomerular Filt Rate > 60; Glucose 180 mg/dL (65-110); INR 1.3; Potassium 4.1 mmol/L (3.4-5.0); Prothrombin Time 15.5 Seconds (11.1-14.7); Sodium 140 mmol/L (137-145)
[2021-07-31] MEDS: CENTRAL LINE FLUSH 10 ML IV PUSH ×3 (06:47→21:06)
[2021-07-31] MEDS: LEVOTHYROXINE SODIUM 100 MCG TABLET PO (06:56)
[2021-07-31] MEDS: LEVOTHYROXINE SODIUM 75 MCG TABLET PO (06:56)
[2021-07-31] MEDS: ALBUTEROL SULFATE (*SP) AEROSOL 1 PUFF 2 PUFF INHALATION ×2 (08:10→13:28)
[2021-07-31 08:12] LABS: Hemoglobin A1C 6.2 % (<5.7)
--- NOTE | 2021-07-31 08:32 | PM.IMPN ---
Progress Note: A&P Assessment and Plan (1) Acute respiratory failure with hypoxia: Code(s): J96.01 - Acute respiratory failure with hypoxia Status: Acute Assessment and Plan: Patient was on Airvo at maximum flow and FiO2 along with a non-rebreather mask for last many days. She was doing self proning for most of the day. She did not tolerate BiPAP on 07/28. 07/30 patient intubated. ABG reviewed she is currently on 15 of PEEP and 85% FiO2. Rate of 30 and tidal volume of 380 -Ventilator management per ICU (2) Pneumonia due to COVID-19 virus: Code(s): U07.1 - COVID-19; J12.82 - Pneumonia due to coronavirus disease 2019 Status: Acute Assessment and Plan: SARS-CoV-2 PCR positive on 07/22. Patient is in Airborne, Droplet and Contact Isolation. S/p 5 days of levofloxacin. Tocilizumab on 07/23/2021. Her ALT is elevated but not to an extent to be a contraindication for remdesivir. -Continue dexamethasone which was started on 07/23 -Day 4/5 remdesivir which was initiated on 07/29 -Trend LFTs -Trend inflammatory markers (3) Hypothyroidism: Code(s): E03.9 - Hypothyroidism, unspecified Status: Acute Assessment and Plan: Continue levothyroxine (4) Hyperglycemia: Code(s): R73.9 - Hyperglycemia, unspecified Status: Acute Assessment and Plan: Likely secondary to steroids -Continue sliding scale insulin (5) Gastroesophageal reflux disease: Code(s): K21.9 - Gastro-esophageal reflux disease without esophagitis Status: Acute Assessment and Plan: Continue PPI Subjective Date/time seen: 07/31/21 08:32 Date of service 07/31/2021 Patient intubated and sedated. Review of Systems Review of Systems: Unable to obtain - patient intubated and sedated Exam Narrative: GENERAL: intubated and sedated HEENT: Normocephalic, atraumatic, anicteric, nares clear, ET tube in place NECK: Thick CV: Normal S1, S2, RRR, No MRG RESP:Poor air movement. No crackles, rales, or rhonchi. Abdomen: Soft, non-tender, non-distended, +BS EXTREMITIES: Warm and well perfused, no clubbing, cyanosis, or edema. +2 Distal pulses bilaterally. SKIN: warm, dry and intact. NEURO:sedated on midazolam and fentanyl Objective Data Vital Signs Vital Signs: Vital Signs - 24 hr 07/30/21 09:25 07/30/21 10:00 07/30/21 10:20 Temperature 98.2 F Pulse Rate 110 H 128 H Respiratory Rate 24 H Blood Pressure 115/91 H Pulse Oximetry 84 L 95 87 L 07/30/21 10:24 07/30/21 10:25 07/30/21 10:32 Temperature Pulse Rate 118 H 118 H 110 H Respiratory Rate 24 H 24 H 24 H Blood Pressure 103/86 Pulse Oximetry 07/30/21 11:00 07/30/21 11:35 07/30/21 12:00 Temperature 97.6 F Pulse Rate 122 H 111 H 112 H Respiratory Rate 24 H 24 H Blood Pressure 115/92 H Pulse Oximetry 93 92 07/30/21 14:00 07/30/21 16:00 07/30/21 17:15 Temperature 97.7 F Pulse Rate 105 H 97 91 Respiratory Rate 30 H 30 H Blood Pressure 103/84 124/85 Pulse Oximetry 93 95 95 07/30/21 18:00 07/30/21 18:01 07/30/21 18:02 Temperature 97.3 F L Pulse Rate 101 H 105 H 105 H Respiratory Rate 30 H 30 H 30 H Blood Pressure 120/83 120/83 Pulse Oximetry 94 07/30/21 20:00 07/30/21 20:40 07/30/21 20:53 Temperature Pulse Rate 103 H 101 H Respiratory Rate 30 H Blood Pressure 123/76 123/76 Pulse Oximetry 94 94 07/30/21 22:00 07/30/21 23:28 07/31/21 00:00 Temperature Pulse Rate 96 86 88 Respiratory Rate 30 H 30 H Blood Pressure 99/78 L 103/81 Pulse Oximetry 95 95 96 07/31/21 02:00 07/31/21 02:14 07/31/21 03:40 Temperature Pulse Rate 88 94 82 Respiratory Rate 30 H 30 H Blood Pressure 105/74 Pulse Oximetry 95 96 07/31/21 03:44 07/31/21 04:00 07/31/21 04:06 Temperature 97.5 F L Pulse Rate 87 83 86 Respiratory Rate 30 H 30 H Blood Pressure 109/76 Pulse Oximetry 96 97 07/31/21 06:00 Temperature Pulse Rate 79 Respirat
[2021-07-31] MEDS: ENOXAPARIN 40 MG/0.4 ML SYRINGE SUB-Q (09:11)
[2021-07-31] MEDS: PANTOPRAZOLE SODIUM IV 40 MG VIAL IV PUSH (09:11)
--- NOTE | 2021-07-31 09:18 | WPDINTPN ---
Progress Note: A&P Assessment and Plan (1) Acute respiratory failure with hypoxia: Code(s): J96.01 - Acute respiratory failure with hypoxia Status: Acute Assessment and Plan: Acute Respiratory failure secondary to COVID-19 pneumonia Patient was on Airvo at maximum flow and FiO2 along with a non-rebreather mask for last many days. She was doing self proning for most of the day. She did not tolerate BiPAP on 07/28 07/30 Patient appears tired and worn out this morning. She was intubated and placed in prone position Chest x-ray pending ABG reviewed she is currently on 15 of PEEP and 85% FiO2. Rate of 30 and tidal volume of 380 Continue daily prone position CTA lungs 07/22 1. No pulmonary embolus, sensitivity slightly limited by respiratory motion. 2. Diffuse lung disease, consistent with COVID 19 pneumonia. (2) Pneumonia due to COVID-19 virus: Code(s): U07.1 - COVID-19; J12.82 - Pneumonia due to coronavirus disease 2018 Status: Acute Assessment and Plan: SARS-CoV-2 PCR positive on 07/22 Patient is in Airborne, Droplet and Contact Isolation Continue dexamethasone which was started on 07/23 Patient is currently on 2nd 5 day course remdesivir which was initiated on 07/29. Her ALT is elevated but not to an extent to be a contraindication for remdesivir. Monitor closely She completed a 5 day course of Levaquin She received a dose of tocilizumab on 07/23 Monitor inflammatory markers. Her CRP is normal (3) Hypothyroidism: Code(s): E03.9 - Hypothyroidism, unspecified Status: Acute Assessment and Plan: Continue levothyroxine (4) Hyperglycemia: Code(s): R73.9 - Hyperglycemia, unspecified Status: Acute Assessment and Plan: Likely secondary to steroids Continue sliding scale insulin (5) Gastroesophageal reflux disease: Code(s): K21.9 - Gastro-esophageal reflux disease without esophagitis Status: Acute Assessment and Plan: Continue PPI Additional Plan DVT prophylaxis -Lovenox subQ Stress ulcer prophylaxis -PPI Nutrition -continue Tube feeds Code Status - Full Code which I clarified with patient Total Critical Care Time - 31 minutes Due to a high probability of clinically significant, life threatening deterioration, the patient required my highest level of preparedness to intervene emergently and I personally spent this critical care time directly and personally managing the patient. This critical care time included obtaining a history; examining the patient; pulse oximetry; ordering and review of studies; arranging urgent treatment with development of a management plan; evaluation of patient's response to treatment; frequent reassessment; and discussions with other providers. It was exclusive of separately billable procedures and treating other patients and teaching time. Please see Assessment and Plan section and the rest of the note for further information on patient assessment and treatment Subjective Date/time seen: 07/31/21 09:18 Review of Systems Review of Systems: ROS unobtainable: Yes unobtainable due to endotracheal tube, unobtainable due to medical condition and unobtainable due to mental status Exam Narrative: General: Pt is sedated, chemically paralyzed, intubated and on mechanical ventilation Lungs/Chest: Trachea central Coarse BS B/L, No crackles or wheezing. Cardiac: RRR. Normal S1 S2. No murmurs Abdomen: Decreased bowel sounds. Morbidly obese. Soft. NT. ND. Extremities: No clubbing, cyanosis or edema. Feet are cold : [place] in place Neurologic: Unable to assess due to sedation and chemical paralysis. PERRL Objective Data Vital Signs Vital Signs: Vital Signs - 24 hr 07/30/21 09:25 07/30/21 10:00 07/30/21 10:20 Temperature 36.8 C Pulse Rate 110 H 128 H Respiratory Rate 24 H Blood Pressure 115/91 H Pulse Oximetry 84 L 95 87 L 07/30/21 10:24 07/30/21 10:25 07/30/21 10:32 Temperature Pulse R
[2021-07-31] MEDS: REMDESIVIR 100 MG/NS 250 ML 100 MG/250 ML BAG 250 MG IVPB (11:00)
[2021-07-31] MEDS: CISATRACURIUM BESYLATE 200 MG in SODIUM CHLORIDE 0.9% IV 80 ML 5.42 ML IV CONT (11:00)
[2021-07-31 12:32] LABS: Glucose Point of Care 171 mg/dl (65-105)
[2021-07-31] MEDS: INSULIN ASPART (*BKC) 100 UNITS/ML SUB-Q ×2 (16:39→23:24)
[2021-07-31 16:49] LABS: Glucose Point of Care 228 mg/dl (65-105)
[2021-07-31] MEDS: SODIUM CHLORIDE 0.9% IV 500 ML IV CONT (18:17)
[2021-07-31] MEDS: MORPHINE SULFATE INJ (*CRX) 10 MG/ML AMP 5 MG IV PUSH (18:18)
[2021-07-31] MEDS: FENTANYL 2,500MCG/NS250ML(*CRX 2,500 MCG/250 ML BAG 15 MCG IV CONT (21:10)
[2021-07-31] MEDS: MIDAZOLAM 100MG/NS 100ML(*CRX) 100 MG/100 ML BAG 8 MG IV CONT (21:12)
[2021-07-31 23:22] LABS: Glucose Point of Care 214 mg/dl (65-105)
[2021-07-31] MEDS: CISATRACURIUM BESYLATE 200 MG in SODIUM CHLORIDE 0.9% IV 80 ML 10.84 ML IV CONT (23:25)
[2021-08-01] VITALS (33 sets, daily range): BP systolic 95–114; BP diastolic 55–80; PULSE 101–118; RESP 30; TEMP 36.6–37.2; O2SAT 90–97
[2021-08-01 05:42] LABS: Alveolar/Arterial O2 Gradient 344.5 mmHg; Base Excess ABG 0.4 mEq/l (+/-2.0); Carboxyhemoglobin 0.3 % THb (0-2.0); Fractional Inspired Oxygen 75 %; HCO3 ABG 31.5 mEq/l (22.0-26.0); Methemoglobin ABG 0.6 %THb (0-1.5); Oxygen Content ABG 24.5 %vol (16.0-22.0); Oxygen Saturation ABG 96.5 % (95.0-100.0); Oxyhemoglobin 96.6 % THb (90.0-100.0); PO2 ABG 105.7 mmHg (80.0-100.0); PO2 FiO2 Ratio Arterial Blood 1.41 %; Reduced Hemoglobin 2.5 %THb (0-5.0)
[2021-08-01 05:44] LABS: Device VENTILATOR; Modified Allen's Test Pass; PCO2 ABG 79.6 mmHg (35.0-45.0); Site Drawn LEFT RADIAL; pH ABG 7.215 (7.350-7.450)
[2021-08-01 05:45] LABS: Arterial Blood Gas PEEP 15 cmH2O; Arterial Blood Gas Tidal Volume 380 ml; Arterial Blood Gas Vent Mode CMV; Arterial Blood Gas Ventilator rate 30 /MIN
[2021-08-01] MEDS: LEVOTHYROXINE SODIUM 75 MCG TABLET PO (06:07)
[2021-08-01] MEDS: LEVOTHYROXINE SODIUM 100 MCG TABLET PO (06:07)
[2021-08-01] MEDS: CENTRAL LINE FLUSH 10 ML IV PUSH ×3 (06:07→22:29)
[2021-08-01 06:15] LABS: Basophils Absolute Auto 0.1 K/mm3 (0.0-0.1); Basophils Percent Auto 0.2 % (0.2-1.2); Eosinophils Absolute Auto 0.1 K/mm3 (0-0.3); Eosinophils Percent Auto 0.4 % (0-4.4); Hematocrit 51.1 % (37.0-47.0); Immature Granulocyte Absolute 0.28 K/mm3 (0.00-0.031); Immature Granulocyte Percent A 1.4 % (0-0.5); Lymphocytes Absolute Auto 0.72 K/mm3 (0.9-3.2); Lymphocytes Percent Auto 3.6 % (18.3-44.2); Mean Corpuscular HGB Conc 31.3 g/dl (32-36); Mean Corpuscular Hemoglobin 30.2 pg (26-34); Mean Corpuscular Volume 96.4 fl (80-100); Mean Platelet Volume 9.9 fl (7.4-10.4); Monocytes Absolute Auto 0.9 K/mm3 (0.1-0.6); Monocytes Percent Auto 4.6 % (2.6-8.5); Neutrophils Absolute Auto 18.2 K/mm3 (1.3-6.7); Neutrophils Percent Auto 89.8 % (45.5-73.1); Platelet Count Result 128 k/mm3 (150-375); Red Cell Distribution Width 13.8 % (11.5-14.5); White Blood Count 20.3 K/mm3 (4.5-10.0)
[2021-08-01 06:23] LABS: INR 1.2; Prothrombin Time 15.4 Seconds (11.1-14.7)
[2021-08-01] MEDS: INSULIN ASPART (*BKC) 100 UNITS/ML SUB-Q ×5 (06:31→20:24)
[2021-08-01 06:34] LABS: Alanine Aminotransferase 147 U/L (4-35); Albumin Level 2.8 g/dL (3.5-5.1); Alkaline Phosphatase 188 U/L (38-126); Anion Gap 7 mmol/L (8-16); Aspartate Amino Transferase 96 U/L (14-36); Bilirubin,Total 0.4 mg/dL (0.2-1.3); Blood Urea Nitrogen 37 mg/dL (7-17); Calcium 8.3 mg/dL (8.4-10.2); Carbon Dioxide 30 mmol/L (22-30); Chloride 108 mmol/L (98-107); Estimated CRCL calculation 99 ml/min; Estimated Glomerular Filt Rate > 60; Glucose 227 mg/dL (65-110); Potassium 4.3 mmol/L (3.4-5.0); Sodium 145 mmol/L (137-145)
[2021-08-01 07:05] LABS: Glucose Point of Care 235 mg/dl (65-105)
[2021-08-01] MEDS: CISATRACURIUM BESYLATE 200 MG in SODIUM CHLORIDE 0.9% IV 80 ML 9.03 ML IV CONT (08:03)
[2021-08-01] MEDS: MIDAZOLAM 100MG/NS 100ML(*CRX) 100 MG/100 ML BAG 8 MG IV CONT ×2 (08:10→20:08)
--- NOTE | 2021-08-01 08:43 | WPDINTPN ---
Progress Note: A&P Assessment and Plan (1) Acute respiratory failure with hypoxia: Code(s): J96.01 - Acute respiratory failure with hypoxia Status: Acute Assessment and Plan: Acute Respiratory failure secondary to COVID-19 pneumonia Patient was on Airvo at maximum flow and FiO2 along with a non-rebreather mask for last many days. She was doing self proning for most of the day. She did not tolerate BiPAP on 07/28 07/30 Patient appears tired and worn out this morning. She was intubated and placed in prone position Chest x-ray pending ABG reviewed she is currently on 15 of PEEP and 75% FiO2. Rate of 30 and tidal volume of 380. Wean FiO2 Tolerate permissive hypercapnia. I will give 1 dose of bicarb Continue daily prone ventilation as tolerated CTA lungs 07/22 1. No pulmonary embolus, sensitivity slightly limited by respiratory motion. 2. Diffuse lung disease, consistent with COVID 19 pneumonia. (2) Pneumonia due to COVID-19 virus: Code(s): U07.1 - COVID-19; J12.82 - Pneumonia due to coronavirus disease 2019 Status: Acute Assessment and Plan: SARS-CoV-2 PCR positive on 07/22 Patient is in Airborne, Droplet and Contact Isolation Continue dexamethasone which was started on 07/23 Patient is currently on 2nd 5 day course remdesivir which was initiated on 07/29. Her ALT is elevated but not to an extent to be a contraindication for remdesivir. Monitor closely She completed a 5 day course of Levaquin She received a dose of tocilizumab on 07/23 Monitor inflammatory markers. Her CRP had normalized (3) Hypothyroidism: Code(s): E03.9 - Hypothyroidism, unspecified Status: Acute Assessment and Plan: Continue levothyroxine (4) Hyperglycemia: Code(s): R73.9 - Hyperglycemia, unspecified Status: Acute Assessment and Plan: Likely secondary to steroids Continue sliding scale insulin but change to q.4 hours Add Lantus 20 units subQ q.day (5) Gastroesophageal reflux disease: Code(s): K21.9 - Gastro-esophageal reflux disease without esophagitis Status: Acute Assessment and Plan: Continue PPI (6) Electrolyte abnormality: Code(s): E87.8 - Other disorders of electrolyte and fluid balance, not elsewhere classified Status: Acute Assessment and Plan: hyperchloremia - will increase free water flushes Additional Plan DVT prophylaxis -Lovenox subQ Stress ulcer prophylaxis -PPI Nutrition -continue Tube feeds Code Status - Full Code which I clarified with patient prior to intubation Total Critical Care Time - 32 minutes Due to a high probability of clinically significant, life threatening deterioration, the patient required my highest level of preparedness to intervene emergently and I personally spent this critical care time directly and personally managing the patient. This critical care time included obtaining a history; examining the patient; pulse oximetry; ordering and review of studies; arranging urgent treatment with development of a management plan; evaluation of patient's response to treatment; frequent reassessment; and discussions with other providers. It was exclusive of separately billable procedures and treating other patients and teaching time. Please see Assessment and Plan section and the rest of the note for further information on patient assessment and treatment Subjective Date/time seen: 08/01/21 08:43 Overnight events reviewed. Afebrile Continues to be on mechanical ventilation 75% FiO2 and 15 of PEEP Continues to be on sedation and neuromuscular zakia infusion patient had episode of tachycardia yesterday and was given a fluid bolus sedation was increased and 5 mg of Lopressor Review of Systems Review of Systems: ROS unobtainable: Yes unobtainable due to endotracheal tube, unobtainable due to medical condition and unobtainable due to mental status Exam Narrative: General: Pt is sedated, chemically paraly
[2021-08-01] MEDS: ENOXAPARIN 40 MG/0.4 ML SYRINGE SUB-Q (09:01)
[2021-08-01] MEDS: PANTOPRAZOLE SODIUM IV 40 MG VIAL IV PUSH (09:01)
[2021-08-01] MEDS: MINERAL OIL/WHITE PETROLATUM OINTMENT 1 APPLIC EACH EYE ×2 (09:02→20:25)
[2021-08-01] MEDS: SODIUM BICARBONATE 8.4% 50 MEQ/50 ML SYRINGE IV PUSH (09:16)
[2021-08-01] MEDS: INSULIN GLARGINE (*BKC) 100 UNITS/ML 20 UNITS SUB-Q (09:16)
[2021-08-01] MEDS: REMDESIVIR 100 MG/NS 250 ML 100 MG/250 ML BAG 250 MG IVPB (11:33)
[2021-08-01 11:50] LABS: Glucose Point of Care 283 mg/dl (65-105)
[2021-08-01] MEDS: FENTANYL 2,500MCG/NS250ML(*CRX 2,500 MCG/250 ML BAG 15 MCG IV CONT (12:55)
[2021-08-01 16:30] LABS: Glucose Point of Care 323 mg/dl (65-105)
[2021-08-01] MEDS: CISATRACURIUM BESYLATE 200 MG in SODIUM CHLORIDE 0.9% IV 80 ML 10.84 ML IV CONT (17:40)
--- NOTE | 2021-08-01 19:53 | PM.IMPN ---
Progress Note: A&P Assessment and Plan (1) Acute respiratory failure with hypoxia: Code(s): J96.01 - Acute respiratory failure with hypoxia Status: Acute Assessment and Plan: Patient was on Airvo at maximum flow and FiO2 along with a non-rebreather mask for last many days. She was doing self proning for most of the day. She did not tolerate BiPAP on 07/28. 07/30 patient intubated. ABG reviewed she is currently on 15 of PEEP and 75% FiO2. Rate of 30 and tidal volume of 380 -Ventilator management per ICU (2) Pneumonia due to COVID-19 virus: Code(s): U07.1 - COVID-19; J12.82 - Pneumonia due to coronavirus disease 2019 Status: Acute Assessment and Plan: SARS-CoV-2 PCR positive on 07/22. Patient is in Airborne, Droplet and Contact Isolation. S/p 5 days of levofloxacin. Tocilizumab on 07/23/2021. Her ALT is elevated but not to an extent to be a contraindication for remdesivir. -Continue dexamethasone which was started on 07/23 -Day 5/5 remdesivir which was initiated on 07/29 -Trend LFTs -Trend inflammatory markers (3) Leukocytosis: Code(s): D72.829 - Elevated white blood cell count, unspecified Status: Acute Assessment and Plan: 12-->11-->23-->16--20 today. Oncology consulted and notes likely to be reactive to current condition plus the steroid use. Recommends defer workup until resolution of illness. (4) Hypothyroidism: Code(s): E03.9 - Hypothyroidism, unspecified Status: Acute Assessment and Plan: Continue levothyroxine (5) Hyperglycemia: Code(s): R73.9 - Hyperglycemia, unspecified Status: Acute Assessment and Plan: Likely secondary to steroids -Continue sliding scale insulin (6) Gastroesophageal reflux disease: Code(s): K21.9 - Gastro-esophageal reflux disease without esophagitis Status: Acute Assessment and Plan: Continue PPI Subjective Date/time seen: 08/01/21 19:53 Exam Narrative: GENERAL: intubated and sedated HEENT: Normocephalic, atraumatic, anicteric, nares clear, ET tube in place NECK: Thick CV: Normal S1, S2, RRR, No MRG RESP:Poor air movement. No crackles, rales, or rhonchi. Abdomen: Soft, non-tender, non-distended, +BS EXTREMITIES: Warm and well perfused, no clubbing, cyanosis, or edema. +2 Distal pulses bilaterally. SKIN: warm, dry and intact. NEURO:sedated on midazolam and fentanyl Objective Data Vital Signs Vital Signs: Vital Signs - 24 hr 07/31/21 19:55 07/31/21 20:00 07/31/21 20:15 Temperature 97.7 F Pulse Rate 117 H 117 H 121 H Respiratory Rate 30 H 30 H Blood Pressure 118/73 104/77 Pulse Oximetry 97 97 07/31/21 21:10 07/31/21 21:12 07/31/21 22:00 Temperature Pulse Rate 116 H 116 H 122 H Respiratory Rate 30 H 30 H 30 H Blood Pressure 98/76 L Pulse Oximetry 96 07/31/21 23:25 07/31/21 23:29 08/01/21 00:00 Temperature 97.8 F Pulse Rate 115 H 115 H 116 H Respiratory Rate 30 H 30 H Blood Pressure 113/75 95/55 L Pulse Oximetry 96 96 08/01/21 02:00 08/01/21 02:05 08/01/21 02:41 Temperature Pulse Rate 113 H 112 H Respiratory Rate 30 H Blood Pressure 104/67 Pulse Oximetry 96 96 96 08/01/21 04:00 08/01/21 05:00 08/01/21 05:21 Temperature 97.8 F Pulse Rate 110 H 108 H 109 H Respiratory Rate 30 H Blood Pressure 95/71 L 107/72 Pulse Oximetry 96 96 08/01/21 06:00 08/01/21 08:00 08/01/21 08:03 Temperature 98.0 F Pulse Rate 111 H 106 H 109 H Respiratory Rate 30 H 30 H Blood Pressure 95/71 L 100/79 100/79 Pulse Oximetry 96 94 08/01/21 08:04 08/01/21 08:10 08/01/21 08:55 Temperature Pulse Rate 108 H 101 H 105 H Respiratory Rate 30 H 30 H Blood Pressure Pulse Oximetry 92 08/01/21 10:00 08/01/21 11:34 08/01/21 11:37 Temperature Pulse Rate 106 H 106 H 103 H Respiratory Rate 30 H 30 H Blood Pressure 114/76 104/80 Pulse Oximetry 94 94 08/01/21 11:41 08/01/21 12:00 08/01/21
[2021-08-01 20:19] LABS: Glucose Point of Care 297 mg/dl (65-105)
[2021-08-02] VITALS (41 sets, daily range): BP systolic 82–111; BP diastolic 46–67; PULSE 76–112; RESP 30; TEMP 36.6–36.9; O2SAT 90–97
[2021-08-02 00:06] LABS: Glucose Point of Care 280 mg/dl (65-105)
[2021-08-02] MEDS: CISATRACURIUM BESYLATE 200 MG in SODIUM CHLORIDE 0.9% IV 80 ML 10.84 ML IV CONT ×3 (03:54→22:00)
[2021-08-02 04:37] LABS: Basophils Absolute Auto 0.1 K/mm3 (0.0-0.1); Basophils Percent Auto 0.3 % (0.2-1.2); Eosinophils Absolute Auto 0.1 K/mm3 (0-0.3); Eosinophils Percent Auto 0.4 % (0-4.4); Hematocrit 48.7 % (37.0-47.0); Hemoglobin 15.6 g/dL (12.0-15.0); Immature Granulocyte Absolute 0.26 K/mm3 (0.00-0.031); Immature Granulocyte Percent A 1.3 % (0-0.5); Lymphocytes Absolute Auto 0.69 K/mm3 (0.9-3.2); Lymphocytes Percent Auto 3.5 % (18.3-44.2); Mean Corpuscular Hemoglobin 30.8 pg (26-34); Mean Corpuscular Volume 96.2 fl (80-100); Mean Platelet Volume 9.6 fl (7.4-10.4); Monocytes Absolute Auto 1.1 K/mm3 (0.1-0.6); Monocytes Percent Auto 5.3 % (2.6-8.5); Neutrophils Absolute Auto 17.5 K/mm3 (1.3-6.7); Neutrophils Percent Auto 89.2 % (45.5-73.1); Platelet Count Result 119 k/mm3 (150-375); Red Blood Count 5.06 M/mm3 (4.2-5.4); Red Cell Distribution Width 13.8 % (11.5-14.5); White Blood Count 19.6 K/mm3 (4.5-10.0)
[2021-08-02 04:58] LABS: Alanine Aminotransferase 131 U/L (4-35); Alkaline Phosphatase 201 U/L (38-126); Aspartate Amino Transferase 75 U/L (14-36); Bilirubin,Total 0.4 mg/dL (0.2-1.3); Blood Urea Nitrogen 39 mg/dL (7-17); Calcium 9.4 mg/dL (8.4-10.2); Carbon Dioxide > 40 mmol/L (22-30); Chloride 105 mmol/L (98-107); Estimated CRCL calculation 114 ml/min; Estimated Glomerular Filt Rate > 60; Glucose 298 mg/dL (65-110); Potassium 5.2 mmol/L (3.4-5.0); Sodium 145 mmol/L (137-145)
[2021-08-02 05:00] LABS: Alveolar/Arterial O2 Gradient 306.5 mmHg; Base Excess ABG 7.5 mEq/l (+/-2.0); Carboxyhemoglobin 0.2 % THb (0-2.0); Fractional Inspired Oxygen 70 %; HCO3 ABG 38.9 mEq/l (22.0-26.0); Methemoglobin ABG 0.4 %THb (0-1.5); Oxygen Content ABG 22.1 %vol (16.0-22.0); Oxygen Saturation ABG 95.9 % (95.0-100.0); Oxyhemoglobin 96.7 % THb (90.0-100.0); PO2 ABG 96.8 mmHg (80.0-100.0); PO2 FiO2 Ratio Arterial Blood 1.38 %; Reduced Hemoglobin 2.7 %THb (0-5.0); Total Hemoglobin 16.2 g/dL (12.0-18.0)
[2021-08-02 05:02] LABS: pH ABG 7.258 (7.350-7.450)
[2021-08-02 05:03] LABS: Arterial Blood Gas PEEP 15 cmH2O; Arterial Blood Gas Tidal Volume 380 ml; Arterial Blood Gas Vent Mode CMV; Arterial Blood Gas Ventilator rate 30 /MIN; Device VENTILATOR; Modified Allen's Test Pass; PCO2 ABG 89.1 mmHg (35.0-45.0); Site Drawn LEFT RADIAL
[2021-08-02] MEDS: FENTANYL 2,500MCG/NS250ML(*CRX 2,500 MCG/250 ML BAG 15 MCG IV CONT ×3 (05:21→22:02)
[2021-08-02] MEDS: SODIUM BICARBONATE 8.4% 50 MEQ/50 ML SYRINGE (05:53)
[2021-08-02] MEDS: CENTRAL LINE FLUSH 10 ML IV PUSH ×3 (05:54→21:26)
[2021-08-02] MEDS: INSULIN ASPART (*BKC) 100 UNITS/ML SUB-Q ×5 (06:06→21:25)
[2021-08-02] MEDS: LEVOTHYROXINE SODIUM 100 MCG TABLET PO (06:07)
[2021-08-02] MEDS: LEVOTHYROXINE SODIUM 75 MCG TABLET PO (06:07)
--- NOTE | 2021-08-02 08:41 | PM.IMPN ---
Progress Note: A&P Assessment and Plan (1) Acute respiratory failure with hypoxia: Code(s): J96.01 - Acute respiratory failure with hypoxia Status: Acute Assessment and Plan: Secondary to diffuse COVID pneumonia noted on chest CT. No evidence of pulmonary emboli though sensitivity slightly limited by respiratory motion. Worsening on Airvo so NRB mask added and moved to the ICU; hypoxia worsened requiring intubation on 07/30/21. CXR 08/01 reviewed showing COVID pneumonia R>L. She is a full code. ABG today showing 7.//97 c/w allowing for permissive hypercapnia. Currently intubated, sedated and paralyzed. Discussed with agricultural equipment salesperson. (2) Pneumonia due to COVID-19 virus: Code(s): U07.1 - COVID-19; J12.82 - Pneumonia due to coronavirus disease 2019 Status: Acute Assessment and Plan: Patient reports that she tested positive for COVID on a home kit on 07/14/21 after being exposed to her son who was positive. She did develop typical COVID symptoms. She presented with acute respiratory failure with Chest CT showed diffuse lung disease consistent with COVID pneumonia and her COVID test was positive here. She was started on empiric antibiotics (Levaquin 750mg IV x 5 days). DDimer was normal and remained normal. She received Tocilizumab 800mg IV (07/23). She has completed Remdesivir x 10 days(08/01); completed dexamethasone (08/01). Wean vet as toelrated. Continue droplet isolation. (3) Polycythemia: Code(s): D75.1 - Secondary polycythemia Status: Acute Assessment and Plan: Hemoglobin 18.1 on admission. Consider chronic hypoxia, hemoconcentration, a combination of both, or even PCV. ABG as above. Could have undiagnosed GABRIEL. Repeat Hgb dropped down to 15 now. HECTOR-2 and Epo levels ordered. Appreciate hematology input. Continue to monitor. (4) Elevated LFTs: Code(s): R79.89 - Other specified abnormal findings of blood chemistry Status: Acute Assessment and Plan: Mild elevation of the LFTs most likely related to viral etiology; increase in LFTs on 07/30 related to her deteriorated condition. Repeat labs showing AST/ALT better today. Remdesivir has been stopped. Follow. (5) Leukocytosis: Code(s): D72.829 - Elevated white blood cell count, unspecified Status: Acute Assessment and Plan: Leukopenia present on admission related to viral etiology. Now WBC has climbed to the 19-20K range. Steroid related? Decadron stopped yesterday. Consider 2nd bacterial PNA but no fevers or increasing secretions. No diarrhea. Follow for signs of bacterial infections. (6) Hyperglycemia: Code(s): R73.9 - Hyperglycemia, unspecified Status: Acute Assessment and Plan: A1c 6.2. Glucose has been mildly elevated but now into the 200's felt related to the steroids and stress. Continue sliding scale and hypoglycemia protocol. Change to Glucerna. (7) Elevated blood pressure reading: Code(s): R03.0 - Elevated blood-pressure reading, without diagnosis of hypertension Status: Acute Assessment and Plan: Blood pressure was mildly elevated early on felt related to the stress response from the respiratory failure. Patient's blood pressure was reviewed on 08/02 Blood pressure now soft related to the sedation. Will continue to monitor. (8) Hypothyroidism: Code(s): E03.9 - Hypothyroidism, unspecified Status: Acute Assessment and Plan: TSH is normal. Continue Synthroid. (9) DVT prophylaxis: Code(s): Z29.9 - Encounter for prophylactic measures, unspecified Status: Acute Assessment and Plan: Lovenox Additional Plan NSVT - noted by tele. Will check Mag level Subjective Date/time seen: 08/02/21 08:41 Interval history: 55yo female with hypothyroidism here for COVID PNA with acute respiratory failure. Patient is unvaccinated. Patient was exposed to COVID and tested positive for COVI
[2021-08-02] MEDS: MIDAZOLAM 100MG/NS 100ML(*CRX) 100 MG/100 ML BAG 8 MG IV CONT (08:59)
[2021-08-02] MEDS: ENOXAPARIN 40 MG/0.4 ML SYRINGE SUB-Q (09:01)
[2021-08-02] MEDS: INSULIN GLARGINE (*BKC) 100 UNITS/ML 40 UNITS SUB-Q (09:01)
[2021-08-02] MEDS: PANTOPRAZOLE SODIUM IV 40 MG VIAL IV PUSH (09:01)
[2021-08-02] MEDS: MINERAL OIL/WHITE PETROLATUM OINTMENT 1 APPLIC EACH EYE ×2 (09:01→21:26)
--- NOTE | 2021-08-02 09:04 | WPDINTPN ---
Progress Note: A&P Assessment and Plan (1) Acute respiratory failure with hypoxia: Code(s): J96.01 - Acute respiratory failure with hypoxia Status: Acute Assessment and Plan: Acute Respiratory failure secondary to COVID-19 pneumonia Patient was on Airvo at maximum flow and FiO2 along with a non-rebreather mask for last many days. She was doing self proning for most of the day. She did not tolerate BiPAP on 07/28 07/30 Patient appears tired and worn out this morning. She was intubated and placed in prone position Chest x-ray pending ABG reviewed she is currently on 15 of PEEP and 70% FiO2. I will decrease the FiO2 down to 60% patient if patient maintains her oxygenation in supine position today will decrease the PEEP. continue Rate of 30 and tidal volume of 380. peak pressures limiting further increase in ventilation Tolerate permissive hypercapnia. I will give 1 dose of bicarb today Continue daily prone ventilation as tolerated CTA lungs 07/22 1. No pulmonary embolus, sensitivity slightly limited by respiratory motion. 2. Diffuse lung disease, consistent with COVID 19 pneumonia. (2) Pneumonia due to COVID-19 virus: Code(s): U07.1 - COVID-19; J12.82 - Pneumonia due to coronavirus disease 2019 Status: Acute Assessment and Plan: SARS-CoV-2 PCR positive on 07/22 Patient is in Airborne, Droplet and Contact Isolation patient has completed a 10 day course of dexamethasone which was started on 07/23. I will hold further steroids as CRP has normalized now Patient has completed a 10 day course remdesivir She completed a 5 day course of Levaquin. Hold further antibiotics at this time She received a dose of tocilizumab on 07/23 Monitor inflammatory markers. Her CRP had normalized (3) Hypothyroidism: Code(s): E03.9 - Hypothyroidism, unspecified Status: Acute Assessment and Plan: Continue levothyroxine (4) Hyperglycemia: Code(s): R73.9 - Hyperglycemia, unspecified Status: Acute Assessment and Plan: Likely secondary to steroids Continue sliding scale insulin but change to q.4 hours increase Lantus to 40 units change feeds to Glucerna (5) Gastroesophageal reflux disease: Code(s): K21.9 - Gastro-esophageal reflux disease without esophagitis Status: Acute Assessment and Plan: Continue PPI (6) Electrolyte abnormality: Code(s): E87.8 - Other disorders of electrolyte and fluid balance, not elsewhere classified Status: Acute Assessment and Plan: potassium is slightly elevated which is likely secondary to hyperglycemia and respiratory acidosis as her renal function is normal. patient was given 1 dose of bicarb, hyperglycemia was treated patient will be given 1 dose of Kayexalate Additional Plan DVT prophylaxis -Lovenox subQ Stress ulcer prophylaxis -PPI Nutrition -continue Tube feeds Code Status - Full Code which I clarified with patient prior to intubation Total Critical Care Time - 30 minutes Due to a high probability of clinically significant, life threatening deterioration, the patient required my highest level of preparedness to intervene emergently and I personally spent this critical care time directly and personally managing the patient. This critical care time included obtaining a history; examining the patient; pulse oximetry; ordering and review of studies; arranging urgent treatment with development of a management plan; evaluation of patient's response to treatment; frequent reassessment; and discussions with other providers. It was exclusive of separately billable procedures and treating other patients and teaching time. Please see Assessment and Plan section and the rest of the note for further information on patient assessment and treatment Subjective Date/time seen: 08/02/21 09:04 Overnight events reviewed. Afebrile Continues to be on mechanical ventilation 70% FiO2 and 15 of PEEP Continues to be on se
[2021-08-02] MEDS: SODIUM POLYSTYRENE SULFONONATE 15 GM/60 ML BTL 30 GM FEED TUBE (09:06)
[2021-08-02 09:14] LABS: Glucose Point of Care 212 mg/dl (65-105)
[2021-08-02 10:30] LABS: Magnesium 2.7 mg/dL (1.6-2.3)
--- NOTE | 2021-08-02 10:51 | PCFNICU ---
ICU Rounding Note: Pt current nutrition is Glucerna 1.2 at 60ml/hr over 22 hours. Last recorded weight is 120.6kg. Bowel Motility:+BM reported 07/30 Labs Reviewed:Glu 298,BUN 39, K 5.2,Hct 48.7,Hgb 15.6 Meds Noted:Protonix, Fentanyl, Versed, Lovenox, Protonix, Novolog, Nimbex, Synthroid, Proventil. Skin: WNL Additional Notes: Patient current on mechanical vent. Blood sugars elevated today. Tube feeding formula change from Jevity 1.2 to Glucerna 1.2 at 60 ml/hr over 22 hours providing 1584 kcals/79 gms protein/1063 ml water. Agree with diet orders. Following daily in ICU rounds. Assessing/reassessing every Monday and Monday.
[2021-08-02] MEDS: SODIUM CHLORIDE 0.9% IV 500 ML IV CONT (11:32)
[2021-08-02] MEDS: SODIUM CHLORIDE 0.45% 500 ML 100 ML IV CONT (11:33)
[2021-08-02 11:56] LABS: Glucose Point of Care 223 mg/dl (65-105)
[2021-08-02] MEDS: NOREPINEPHRINE 8 MG/D5W 250 ML 8 MG/250 ML BAG 9.38 MG IV CONT (12:09)
[2021-08-02 17:10] LABS: Glucose Point of Care 187 mg/dl (65-105)
[2021-08-02 20:25] LABS: Glucose Point of Care 251 mg/dl (65-105)
[2021-08-03] VITALS (41 sets, daily range): BP systolic 91–116; BP diastolic 54–65; PULSE 70–102; RESP 27–30; TEMP 36.8–36.9; O2SAT 88–98
[2021-08-03] MEDS: MIDAZOLAM 100MG/NS 100ML(*CRX) 100 MG/100 ML BAG 6 MG IV CONT ×2 (00:09→12:56)
[2021-08-03] MEDS: INSULIN ASPART (*BKC) 100 UNITS/ML SUB-Q ×3 (01:07→21:12)
[2021-08-03 01:51] LABS: Glucose Point of Care 256 mg/dl (65-105)
[2021-08-03 04:58] LABS: Alveolar/Arterial O2 Gradient 215.6 mmHg; Base Excess ABG 15.6 mEq/l (+/-2.0); Carboxyhemoglobin 0.3 % THb (0-2.0); Fractional Inspired Oxygen 50 %; HCO3 ABG 43.7 mEq/l (22.0-26.0); Methemoglobin ABG 0.3 %THb (0-1.5); Oxygen Content ABG 19.7 %vol (16.0-22.0); Oxygen Saturation ABG 92.7 % (95.0-100.0); Oxyhemoglobin 93.7 % THb (90.0-100.0); PO2 ABG 65.5 mmHg (80.0-100.0); PO2 FiO2 Ratio Arterial Blood 1.31 %; Reduced Hemoglobin 5.7 %THb (0-5.0); pH ABG 7.432 (7.350-7.450)
[2021-08-03 05:02] LABS: Device VENTILATOR; Site Drawn LEFT RADIAL
[2021-08-03 05:03] LABS: Arterial Blood Gas PEEP 15 cmH2O; Arterial Blood Gas Tidal Volume 382 ml; Arterial Blood Gas Vent Mode CMV; Arterial Blood Gas Ventilator rate 30 /MIN
[2021-08-03] MEDS: LEVOTHYROXINE SODIUM 75 MCG TABLET PO (05:45)
[2021-08-03] MEDS: LEVOTHYROXINE SODIUM 100 MCG TABLET PO (05:45)
[2021-08-03 05:50] LABS: Basophils Absolute Auto 0.1 K/mm3 (0.0-0.1); Basophils Percent Auto 0.5 % (0.2-1.2); Eosinophils Absolute Auto 0.3 K/mm3 (0-0.3); Eosinophils Percent Auto 1.5 % (0-4.4); Hematocrit 44.8 % (37.0-47.0); Hemoglobin 14.1 g/dL (12.0-15.0); Immature Granulocyte Absolute 0.19 K/mm3 (0.00-0.031); Immature Granulocyte Percent A 1.1 % (0-0.5); Lymphocytes Absolute Auto 1.58 K/mm3 (0.9-3.2); Lymphocytes Percent Auto 9.3 % (18.3-44.2); Mean Corpuscular HGB Conc 31.5 g/dl (32-36); Mean Corpuscular Hemoglobin 30.7 pg (26-34); Mean Corpuscular Volume 97.4 fl (80-100); Mean Platelet Volume 9.8 fl (7.4-10.4); Monocytes Absolute Auto 0.8 K/mm3 (0.1-0.6); Monocytes Percent Auto 4.5 % (2.6-8.5); Neutrophils Absolute Auto 14.1 K/mm3 (1.3-6.7); Neutrophils Percent Auto 83.1 % (45.5-73.1); Platelet Count Result 113 k/mm3 (150-375); Red Cell Distribution Width 13.9 % (11.5-14.5)
[2021-08-03] MEDS: CENTRAL LINE FLUSH 10 ML IV PUSH ×3 (06:03→22:18)
[2021-08-03 06:10] LABS: Glucose Point of Care 170 mg/dl (65-105)
[2021-08-03 06:11] LABS: Alanine Aminotransferase 110 U/L (4-35); Albumin Level 2.7 g/dL (3.5-5.1); Alkaline Phosphatase 209 U/L (38-126); Aspartate Amino Transferase 86 U/L (14-36); Bilirubin,Total 0.6 mg/dL (0.2-1.3); Blood Urea Nitrogen 31 mg/dL (7-17); Calcium 9.1 mg/dL (8.4-10.2); Carbon Dioxide > 40 mmol/L (22-30); Chloride 104 mmol/L (98-107); Estimated CRCL calculation 134 ml/min; Estimated Glomerular Filt Rate > 60; Glucose 204 mg/dL (65-110); Potassium 4.3 mmol/L (3.4-5.0); Sodium 146 mmol/L (137-145)
[2021-08-03] MEDS: CISATRACURIUM BESYLATE 200 MG in SODIUM CHLORIDE 0.9% IV 80 ML 10.84 ML IV CONT ×3 (07:11→20:59)
[2021-08-03] MEDS: MINERAL OIL/WHITE PETROLATUM OINTMENT 1 APPLIC EACH EYE ×2 (07:13→21:01)
[2021-08-03] MEDS: ENOXAPARIN 40 MG/0.4 ML SYRINGE SUB-Q (07:13)
[2021-08-03] MEDS: PANTOPRAZOLE SODIUM IV 40 MG VIAL IV PUSH (07:13)
[2021-08-03] MEDS: polyethylene glycoL 3350 17 GM POWD.PACK PO (08:15)
[2021-08-03] MEDS: INSULIN GLARGINE (*BKC) 100 UNITS/ML 50 UNITS SUB-Q (08:15)
[2021-08-03 08:21] LABS: Glucose Point of Care 176 mg/dl (65-105)
--- NOTE | 2021-08-03 08:45 | WPDINTPN ---
Progress Note: A&P Assessment and Plan (1) Acute respiratory failure with hypoxia: Code(s): J96.01 - Acute respiratory failure with hypoxia Status: Acute Assessment and Plan: Acute Respiratory failure secondary to COVID-19 pneumonia Patient was on Airvo at maximum flow and FiO2 along with a non-rebreather mask for last many days. She was doing self proning for most of the day. She did not tolerate BiPAP on 07/28 07/30 Patient appears tired and worn out this morning. She was intubated and placed in prone position on 07/30/2021 ABG reviewed she is currently on 15 of PEEP and 50% FiO2. Decrease PEEP to 14. Tolerate permissive hypercapnia. Continue daily prone ventilation as tolerated CTA lungs 07/22 1. No pulmonary embolus, sensitivity slightly limited by respiratory motion. 2. Diffuse lung disease, consistent with COVID 19 pneumonia. (2) Pneumonia due to COVID-19 virus: Code(s): U07.1 - COVID-19; J12.82 - Pneumonia due to coronavirus disease 2018 Status: Acute Assessment and Plan: SARS-CoV-2 PCR positive on 07/22, Unvaccinated Patient is in Airborne, Droplet and Contact Isolation patient has completed a 10 day course of dexamethasone which was started on 07/23. I will hold further steroids as CRP has normalized now Patient has completed a 10 day course remdesivir She completed a 5 day course of Levaquin. Hold further antibiotics at this time She received a dose of tocilizumab on 07/23 Monitor inflammatory markers. Her CRP had normalized (3) Hypothyroidism: Code(s): E03.9 - Hypothyroidism, unspecified Status: Acute Assessment and Plan: Continue levothyroxine (4) Hyperglycemia: Code(s): R73.9 - Hyperglycemia, unspecified Status: Acute Assessment and Plan: Likely secondary to steroids Continue sliding scale insulin but change to q.4 hours increase Lantus to 50 units Tube feeds were changed to Glucerna on 08/02 (5) Gastroesophageal reflux disease: Code(s): K21.9 - Gastro-esophageal reflux disease without esophagitis Status: Acute Assessment and Plan: Continue PPI Additional Plan DVT prophylaxis -Lovenox subQ Stress ulcer prophylaxis -PPI Nutrition -continue Tube feeds Code Status - Full Code which was clarified with patient prior to intubation Total Critical Care Time - 34 minutes Due to a high probability of clinically significant, life threatening deterioration, the patient required my highest level of preparedness to intervene emergently and I personally spent this critical care time directly and personally managing the patient. This critical care time included obtaining a history; examining the patient; pulse oximetry; ordering and review of studies; arranging urgent treatment with development of a management plan; evaluation of patient's response to treatment; frequent reassessment; and discussions with other providers. It was exclusive of separately billable procedures and treating other patients and teaching time. Please see Assessment and Plan section and the rest of the note for further information on patient assessment and treatment Subjective Date/time seen: 08/03/21 08:45 Interval history: 55yo female with hypothyroidism admitted with COVID PNA with acute respiratory failure. Patient is unvaccinated. Patient was exposed to COVID and tested positive for COVID on 07/14/21. She was treated with azithromycin, dexamethasone, Tessalon Perles and albuterol by her primary care doctor. Condition worsen with hypoxia and thus presented to the ED. Intubated 07/3008/03/2021: Patient seen and examined the ICU, remains intubated on CMV mode of ventilation, peep of 15 and 50% FiO2. Patient is sedated with fentanyl and Versed infusion, also on Nimbex for neuromuscular blockade. Patient is currently in prone position, urine output has been adequate, patient is afebrile. Tolerating tube feeds. Also remains on Levophed at 2 mcg/min
--- NOTE | 2021-08-03 11:58 | PCNFU ---
Nutrition Follow-Up Complete: Inadequate Oral Intake as related to mechanical ventilation as evidenced by NPO. Goal: Meet estimated nutritional needs Patient is progressing towards goal. We will continue current goal. Pt current nutrition is Glucerna 1.2 at 60 ml/hr over 22 hours. Last recorded weight is 121.6 kg, up from 120.1 kg on admit. Bowel Motility:+BM reported 07/30 Labs Reviewed:Glu 204, Cr 0.5,BUN 31, Na 146, Alb 2.7 Meds Noted:Levophed, Miralax, Protonix, Fentanyl, Lovenox, Versed, Synthroid. Skin:WNL Additional Notes: Patient remains on mechanical vent. Tube feedings of Glucerna 1.2 at 60 ml/hr over 22 hours and tolerating. Tube feedings are providing 1584 kcals/79 gm protein/1063 ml water. Free water flush 30 ml q 4 hours. Agree with current diet orders. Monitoring: Will monitor every Monday and Monday.
[2021-08-03 11:59] LABS: Glucose Point of Care 173 mg/dl (65-105)
[2021-08-03] MEDS: FENTANYL 2,500MCG/NS250ML(*CRX 2,500 MCG/250 ML BAG 15 MCG IV CONT (12:55)
--- NOTE | 2021-08-03 13:56 | PM.IMPN ---
Progress Note: A&P Assessment and Plan (1) Acute respiratory failure with hypoxia: Code(s): J96.01 - Acute respiratory failure with hypoxia Status: Acute Assessment and Plan: Secondary to diffuse COVID pneumonia noted on chest CT. No evidence of pulmonary emboli though sensitivity slightly limited by respiratory motion. Worsening on Airvo so NRB mask added and moved to the ICU; hypoxia worsened requiring intubation on 07/30/21. CXR reviewed showing worsening COVID pneumonia R>L. She is a full code. ABG today showing 7.43/67/66. Anle to decrease PEEP slightly. Currently intubated, sedated and paralyzed. Discussed with booth cashier. (2) Pneumonia due to COVID-19 virus: Code(s): U07.1 - COVID-19; J12.82 - Pneumonia due to coronavirus disease 2018 Status: Acute Assessment and Plan: Patient reports that she tested positive for COVID on a home kit on 07/14/21 after being exposed to her son who was positive. She did develop typical COVID symptoms. She presented with acute respiratory failure with Chest CT showed diffuse lung disease consistent with COVID pneumonia and her COVID test was positive here. She was treated with empiric antibiotics (Levaquin 750mg IV x 5 days). DDimer was normal and remained normal. She received Tocilizumab 800mg IV (07/23). She has completed Remdesivir x 10 days(08/01); completed dexamethasone (08/01). Wean vent as tolerated. Continue droplet isolation. (3) Polycythemia: Code(s): D75.1 - Secondary polycythemia Status: Acute Assessment and Plan: Hemoglobin 18.1 on admission. Consider chronic hypoxia, hemoconcentration, a combination of both, or even PCV. ABG as above. Could have undiagnosed GABRIEL. Repeat Hgb dropped down to 14 now. HECTOR-2 and Epo levels ordered. Appreciate hematology input. Continue to monitor. (4) Elevated LFTs: Code(s): R79.89 - Other specified abnormal findings of blood chemistry Status: Acute Assessment and Plan: Mild elevation of the LFTs most likely related to viral etiology; increase in LFTs on 07/30 related to her deteriorated condition. Repeat labs showing AST/ALT up and down. Remdesivir has been stopped. Follow. (5) Leukocytosis: Code(s): D72.829 - Elevated white blood cell count, unspecified Status: Acute Assessment and Plan: Leukopenia present on admission related to viral etiology. Now WBC has climbed to the 23K range. Steroid related? Decadron stopped 08/01. Consider 2nd bacterial PNA but no fevers or increasing secretions. No diarrhea. WBC trending down. Follow for signs of bacterial infections. (6) Hyperglycemia: Code(s): R73.9 - Hyperglycemia, unspecified Status: Acute Assessment and Plan: A1c 6.2. Glucose has been mildly elevated at times. Continue sliding scale and hypoglycemia protocol. Continue Glucerna. Continue Lantus. (7) Elevated blood pressure reading: Code(s): R03.0 - Elevated blood-pressure reading, without diagnosis of hypertension Status: Acute Assessment and Plan: Blood pressure was mildly elevated early on felt related to the stress response from the respiratory failure. Patient's blood pressure was reviewed on 08/03. BP soft now and on Levophed (8) Hypothyroidism: Code(s): E03.9 - Hypothyroidism, unspecified Status: Acute Assessment and Plan: TSH is normal. Continue Synthroid. (9) DVT prophylaxis: Code(s): Z29.9 - Encounter for prophylactic measures, unspecified Status: Acute Assessment and Plan: Lovenox Additional Plan NSVT - noted by tele. Will check Mag level Subjective Date/time seen: 08/03/21 13:56 Interval history: 55yo female with hypothyroidism admitted with COVID PNA with acute respiratory failure. Patient is unvaccinated. Patient was exposed to COVID and tested positive for COVID on 07/14/21. She was treated with azithromycin, dexamethasone, Tessalo
[2021-08-03 16:26] LABS: Erythropoietin (EPO) 6.2 mIU/mL (2.6-18.5)
[2021-08-03 16:28] LABS: Glucose Point of Care 202 mg/dl (65-105)
[2021-08-03 21:23] LABS: Glucose Point of Care 209 mg/dl (65-105)
[2021-08-04] VITALS (33 sets, daily range): BP systolic 107–147; BP diastolic 56–92; PULSE 74–114; RESP 27–30; TEMP 36.2–37.1; O2SAT 86–99
[2021-08-04 00:21] LABS: Glucose Point of Care 175 mg/dl (65-105)
[2021-08-04 04:24] LABS: Glucose Point of Care 154 mg/dl (65-105)
[2021-08-04] MEDS: FENTANYL 2,500MCG/NS250ML(*CRX 2,500 MCG/250 ML BAG 15 MCG IV CONT ×2 (05:00→21:17)
[2021-08-04] MEDS: MIDAZOLAM 100MG/NS 100ML(*CRX) 100 MG/100 ML BAG 6 MG IV CONT ×2 (05:01→21:21)
[2021-08-04] MEDS: LEVOTHYROXINE SODIUM 75 MCG TABLET PO (05:17)
[2021-08-04] MEDS: LEVOTHYROXINE SODIUM 100 MCG TABLET PO (05:17)
[2021-08-04] MEDS: CISATRACURIUM BESYLATE 200 MG in SODIUM CHLORIDE 0.9% IV 80 ML 10.84 ML IV CONT ×2 (05:32→15:24)
[2021-08-04 05:41] LABS: Base Excess ABG 14.6 mEq/l (+/-2.0); Carboxyhemoglobin 0.3 % THb (0-2.0); Fractional Inspired Oxygen 85 %; Methemoglobin ABG 0.4 %THb (0-1.5); Oxygen Content ABG 19.1 %vol (16.0-22.0); PO2 ABG 83.9 mmHg (80.0-100.0); PO2 FiO2 Ratio Arterial Blood 0.99 %; Reduced Hemoglobin 4.3 %THb (0-5.0); Total Hemoglobin 14.3 g/dL (12.0-18.0); pH ABG 7.332 (7.350-7.450)
[2021-08-04 05:43] LABS: Device VENTILATOR; Modified Allen's Test Pass; PCO2 ABG 86.9 mmHg (35.0-45.0); Site Drawn LEFT RADIAL
[2021-08-04 05:44] LABS: Arterial Blood Gas PEEP 14 cmH2O; Arterial Blood Gas Tidal Volume 380 ml; Arterial Blood Gas Vent Mode CMV; Arterial Blood Gas Ventilator rate 30 /MIN
[2021-08-04 05:55] LABS: Basophils Absolute Auto 0.1 K/mm3 (0.0-0.1); Basophils Percent Auto 0.6 % (0.2-1.2); Eosinophils Absolute Auto 0.2 K/mm3 (0-0.3); Eosinophils Percent Auto 1.1 % (0-4.4); Hematocrit 42.8 % (37.0-47.0); Hemoglobin 13.3 g/dL (12.0-15.0); Immature Granulocyte Absolute 0.16 K/mm3 (0.00-0.031); Immature Granulocyte Percent A 1.2 % (0-0.5); Lymphocytes Absolute Auto 1.45 K/mm3 (0.9-3.2); Lymphocytes Percent Auto 10.8 % (18.3-44.2); Mean Corpuscular HGB Conc 31.1 g/dl (32-36); Mean Corpuscular Hemoglobin 30.6 pg (26-34); Mean Corpuscular Volume 98.6 fl (80-100); Mean Platelet Volume 10.2 fl (7.4-10.4); Monocytes Absolute Auto 0.6 K/mm3 (0.1-0.6); Monocytes Percent Auto 4.8 % (2.6-8.5); Neutrophils Absolute Auto 10.9 K/mm3 (1.3-6.7); Neutrophils Percent Auto 81.5 % (45.5-73.1); Platelet Count Result 88 k/mm3 (150-375); Red Blood Count 4.34 M/mm3 (4.2-5.4); Red Cell Distribution Width 14.1 % (11.5-14.5); White Blood Count 13.4 K/mm3 (4.5-10.0)
[2021-08-04 06:05] LABS: Alanine Aminotransferase 108 U/L (4-35); Albumin Level 2.7 g/dL (3.5-5.1); Alkaline Phosphatase 216 U/L (38-126); Aspartate Amino Transferase 91 U/L (14-36); Bilirubin,Total 0.6 mg/dL (0.2-1.3); Blood Urea Nitrogen 33 mg/dL (7-17); Calcium 9.2 mg/dL (8.4-10.2); Carbon Dioxide > 40 mmol/L (22-30); Chloride 104 mmol/L (98-107); Estimated CRCL calculation 164 ml/min; Estimated Glomerular Filt Rate > 60; Glucose 177 mg/dL (65-110); Potassium 4.8 mmol/L (3.4-5.0); Sodium 147 mmol/L (137-145)
[2021-08-04] MEDS: INSULIN GLARGINE (*BKC) 100 UNITS/ML 50 UNITS SUB-Q (08:34)
[2021-08-04] MEDS: PANTOPRAZOLE SODIUM IV 40 MG VIAL IV PUSH (08:35)
[2021-08-04] MEDS: polyethylene glycoL 3350 17 GM POWD.PACK PO (08:35)
[2021-08-04] MEDS: MINERAL OIL/WHITE PETROLATUM OINTMENT 1 APPLIC EACH EYE ×2 (08:35→20:35)
[2021-08-04] MEDS: CENTRAL LINE FLUSH 10 ML IV PUSH ×3 (08:36→20:36)
--- NOTE | 2021-08-04 09:07 | PM.IMPN ---
Progress Note: A&P Assessment and Plan (1) Acute respiratory failure with hypoxia: Code(s): J96.01 - Acute respiratory failure with hypoxia Status: Acute Assessment and Plan: Secondary to diffuse COVID pneumonia noted on chest CT. With CT on 07/22/21, no evidence of pulmonary emboli though sensitivity slightly limited by respiratory motion. Worsening on Airvo so NRB mask added and moved to the ICU; hypoxia worsened requiring intubation on 07/30/21. Echo showing EF 60-65%, Grade I diastolic dysfunction and mild pHTN. May have underlying GABRIEL. Brief runs of NSVT on tele - check EKG and mag level. CXR yesterday showing worsening COVID pneumonia R>L. She is a full code. ABG today showing 7.33/87/84. Currently intubated, sedated and paralyzed. Discussed with product development actuary. (2) Pneumonia due to COVID-19 virus: Code(s): U07.1 - COVID-19; J12.82 - Pneumonia due to coronavirus disease 2019 Status: Acute Assessment and Plan: Patient reports that she tested positive for COVID on a home kit on 07/14/21 after being exposed to her son who was positive. She did develop typical COVID symptoms. She presented with acute respiratory failure with Chest CT showed diffuse lung disease consistent with COVID pneumonia and her COVID test was positive here on 07/22/21. She was treated with empiric antibiotics (Levaquin 750mg IV x 5 days). DDimer was normal and remained normal. She received Tocilizumab 07/23. She has completed Remdesivir x 10 days(08/01); completed dexamethasone (08/01). Wean vent as tolerated. Continue droplet isolation. (3) Polycythemia: Code(s): D75.1 - Secondary polycythemia Status: Acute Assessment and Plan: Hemoglobin 18.1 on admission. Consider chronic hypoxia, hemoconcentration, a combination of both, or even PCV. ABG as above. Could have undiagnosed GABRIEL. Repeat Hgb dropped down to 14 now. HECTOR-2 level pending; Epo normal. Echo does show mild pHTN so consider untreated GABRIEL. Appreciate hematology input. Continue to monitor. (4) Elevated LFTs: Code(s): R79.89 - Other specified abnormal findings of blood chemistry Status: Acute Assessment and Plan: Mild elevation of the LFTs most likely related to viral etiology; increase in LFTs on 07/30 related to her deteriorated condition. Repeat labs showing AST/ALT up and down. Remdesivir has been stopped. Follow. (5) Leukocytosis: Code(s): D72.829 - Elevated white blood cell count, unspecified Status: Acute Assessment and Plan: Leukopenia present on admission related to viral etiology. Now WBC has climbed to the 23K range. Steroid related? Decadron stopped 08/01. Consider 2nd bacterial PNA but no fevers or increasing secretions. No diarrhea. WBC trending down with routine care. Follow for signs of bacterial infections. (6) Hyperglycemia: Code(s): R73.9 - Hyperglycemia, unspecified Status: Acute Assessment and Plan: A1c 6.2. Glucose has been mildly elevated at times. Continue sliding scale and hypoglycemia protocol. Continue Glucerna. Continue Lantus. (7) Elevated blood pressure reading: Code(s): R03.0 - Elevated blood-pressure reading, without diagnosis of hypertension Status: Acute Assessment and Plan: Blood pressure was mildly elevated early on felt related to the stress response from the respiratory failure. Patient's blood pressure was reviewed on 08/04 BP low requiring Levophed but able to come off Levophed 08/03. (8) Hypothyroidism: Code(s): E03.9 - Hypothyroidism, unspecified Status: Acute Assessment and Plan: TSH is normal. Continue Synthroid. (9) DVT prophylaxis: Code(s): Z29.9 - Encounter for prophylactic measures, unspecified Status: Acute Assessment and Plan: Lovenox stopped due to the low plt count Additional Plan Thrombocytopenia - related to the tocilizimab (usually causes neutropneia)
[2021-08-04 09:18] LABS: Glucose Point of Care 187 mg/dl (65-105)
--- NOTE | 2021-08-04 09:18 | ECG_ITS ---
Measurements Intervals [place] Rate: 103 P: 55 FL: 138 QRS: 72 QRSD: 93 T: -6 QT: 330 QTc: 434 Interpretive Statements SINUS TACHYCARDIA VENTRICULAR TRIPLET DELAYED PRECORDIAL R/S TRANSITION BORDERLINE ST-T WAVE ABNORMALITY- INFERIOR LEADS ABNORMAL ECG Electronically Signed On 08-04-2021 14:53:30 STEAM BOX T[employer] by Ronny Finch D.O.
[2021-08-04 09:35] LABS: Magnesium 2.1 mg/dL (1.6-2.3)
--- NOTE | 2021-08-04 10:50 | WPDINTPN ---
Progress Note: A&P Assessment and Plan (1) Acute respiratory failure with hypoxia: Code(s): J96.01 - Acute respiratory failure with hypoxia Status: Acute Assessment and Plan: Acute Respiratory failure secondary to COVID-19 pneumonia Patient was on Airvo at maximum flow and FiO2 along with a non-rebreather mask for last many days. She was doing self proning for most of the day. She did not tolerate BiPAP on 07/28 07/30 Patient appears tired and worn out this morning. She was intubated and placed in prone position on 07/30/2021 ABG reviewed she is currently on 15 of PEEP and 80% FiO2. Decrease PEEP to 14. Tolerate permissive hypercapnia. Continue daily prone ventilation as tolerated CTA lungs 07/22 1. No pulmonary embolus, sensitivity slightly limited by respiratory motion. 2. Diffuse lung disease, consistent with COVID 19 pneumonia. (2) Pneumonia due to COVID-19 virus: Code(s): U07.1 - COVID-19; J12.82 - Pneumonia due to coronavirus disease 2018 Status: Acute Assessment and Plan: SARS-CoV-2 PCR positive on 07/22, Unvaccinated Patient is in Airborne, Droplet and Contact Isolation patient has completed a 10 day course of dexamethasone which was started on 07/23. I will hold further steroids as CRP has normalized now Patient has completed a 10 day course remdesivir She completed a 5 day course of Levaquin. Hold further antibiotics at this time She received a dose of tocilizumab on 07/23 Monitor inflammatory markers. Her CRP had normalized (3) Hypothyroidism: Code(s): E03.9 - Hypothyroidism, unspecified Status: Acute Assessment and Plan: Continue levothyroxine (4) Hyperglycemia: Code(s): R73.9 - Hyperglycemia, unspecified Status: Acute Assessment and Plan: Likely secondary to steroids Continue sliding scale insulin but change to q.4 hours Increase Lantus to 50 units Tube feeds were changed to Glucerna on 08/02 (5) Gastroesophageal reflux disease: Code(s): K21.9 - Gastro-esophageal reflux disease without esophagitis Status: Acute Assessment and Plan: Continue PPI Additional Plan DVT prophylaxis -Lovenox subQ Stress ulcer prophylaxis -PPI Nutrition -continue Tube feeds Code Status - Full Code which was clarified with patient prior to intubation Total Critical Care Time - 34 minutes Due to a high probability of clinically significant, life threatening deterioration, the patient required my highest level of preparedness to intervene emergently and I personally spent this critical care time directly and personally managing the patient. This critical care time included obtaining a history; examining the patient; pulse oximetry; ordering and review of studies; arranging urgent treatment with development of a management plan; evaluation of patient's response to treatment; frequent reassessment; and discussions with other providers. It was exclusive of separately billable procedures and treating other patients and teaching time. Please see Assessment and Plan section and the rest of the note for further information on patient assessment and treatment Subjective Date/time seen: 08/04/21 10:50 Interval history: 55yo female with hypothyroidism admitted with COVID PNA with acute respiratory failure. Patient is unvaccinated. Patient was exposed to COVID and tested positive for COVID on 07/14/21. She was treated with azithromycin, dexamethasone, Tessalon Perles and albuterol by her primary care doctor. Condition worsen with hypoxia and thus presented to the ED. Intubated 07/3008/04/2021: Patient seen and examined the ICU, remains intubated on CMV mode of ventilation, peep of 14 and 80% FiO2. Patient is sedated with fentanyl and Versed infusion, also on Nimbex for neuromuscular blockade. Patient is currently in prone position, urine output has been adequate, patient is afebrile. Tolerating tube feeds. Also remains on Levophed at 2 mcg/min R
--- NOTE | 2021-08-04 11:03 | PCFNICU ---
ICU Rounding Note: Pt current nutrition is Glucerna 1.2 at 60 mls per hour over 22 hours per day. Last recorded weight is 121.8 kg. Bowel Motility: + BM 07/30/2021. Labs Reviewed: Alb 2.7, Na 147, BUN 33, Cr 0.4, Glu 177 Meds Noted: Bisacodyl, Novolog, Lantus, Atrovent neb, Synthroid, Lopressor, Protonix, Miralax, Skin: No skin breakdown at this time. WNL. Additional Notes: Patient is receiving 1584 calories, 79 grams of protein and 1062 mls of water from current feeding tolerating well. MD increased water flushes to 150 mls q4 due to high sodium levels. Following daily in ICU rounds. Assessing/reassessing every Monday and Monday.
[2021-08-04] MEDS: INSULIN ASPART (*BKC) 100 UNITS/ML SUB-Q ×2 (12:04→18:33)
[2021-08-04] MEDS: FONDAPARINUX SODIUM 2.5 MG/0.5 ML SYRINGE SUB-Q (12:06)
[2021-08-04] MEDS: ALTEPLASE 2 MG VIAL (CATHFLO) IV PUSH (12:19)
[2021-08-04 12:43] LABS: Glucose Point of Care 222 mg/dl (65-105)
[2021-08-04] MEDS: BUDESONIDE RESPULE NEB 0.5 MG/2 ML AMP INHALATION (14:25)
[2021-08-04] MEDS: LEVALBUTEROL NEB 1.25 MG/3 ML 0.63 MG INHALATION (14:25)
[2021-08-04] MEDS: IPRATROPIUM BR 0.02% INH SOLN 0.5 MG/2.5 ML VIAL INHALATION (14:25)
[2021-08-04 14:38] LABS: CALR Exon 9 Mutation Not Detected (Not Detected); CSF3R Exon 14/17 Mutation Not Detected (Not Detected); Clinical Indication Not Given; JAK2 Exon 12 Mutation Not Detected (Not Detected); JAK2 V617F Mutation Not Detected (Not Detected); MPL Exon 10 Mutation Not Detected (Not Detected)
[2021-08-04] MEDS: AMIODARONE 150 MG/D5W 100 ML 150 MG/100 ML BAG 600 MG IV CONT (15:23)
--- NOTE | 2021-08-04 16:47 | PCNSR ---
On 08/04/21, the student, Lorin Andrade, provided care and completed [facility] documentation on this patient. I have reviewed the student's documentation and agree with the findings.
[2021-08-04 18:53] LABS: Glucose Point of Care 231 mg/dl (65-105)
[2021-08-05] VITALS (40 sets, daily range): BP systolic 106–153; BP diastolic 64–87; PULSE 81–112; RESP 30; TEMP 36.6–36.8; O2SAT 89–98
[2021-08-05 00:43] LABS: Glucose Point of Care 171 mg/dl (65-105)
[2021-08-05] MEDS: CISATRACURIUM BESYLATE 200 MG in SODIUM CHLORIDE 0.9% IV 80 ML 10.84 ML IV CONT (00:46)
--- NOTE | 2021-08-05 02:02 | PCRCNOTE ---
Window of time for administration has passed. See next scheduled administration.
[2021-08-05] MEDS: LEVALBUTEROL NEB 1.25 MG/3 ML 0.63 MG INHALATION ×4 (02:52→20:44)
[2021-08-05] MEDS: IPRATROPIUM BR 0.02% INH SOLN 0.5 MG/2.5 ML VIAL INHALATION ×4 (02:52→20:44)
[2021-08-05 05:03] LABS: Alveolar/Arterial O2 Gradient 408.5 mmHg; Base Excess ABG 18.3 mEq/l (+/-2.0); Carboxyhemoglobin 0.3 % THb (0-2.0); Fractional Inspired Oxygen 85 %; HCO3 ABG 48.9 mEq/l (22.0-26.0); Methemoglobin ABG 0.4 %THb (0-1.5); Oxygen Content ABG 18.5 %vol (16.0-22.0); Oxyhemoglobin 96.4 % THb (90.0-100.0); PO2 ABG 102.4 mmHg (80.0-100.0); Reduced Hemoglobin 2.9 %THb (0-5.0); Total Hemoglobin 13.6 g/dL (12.0-18.0); pH ABG 7.345 (7.350-7.450)
[2021-08-05 05:04] LABS: Device VENTILATOR; Modified Allen's Test Pass; PCO2 ABG 91.7 mmHg (35.0-45.0); Site Drawn LEFT RADIAL
[2021-08-05 05:05] LABS: Arterial Blood Gas PEEP 14 cmH2O; Arterial Blood Gas Tidal Volume 380 ml; Arterial Blood Gas Vent Mode CMV; Arterial Blood Gas Ventilator rate 30 /MIN
[2021-08-05] MEDS: CENTRAL LINE FLUSH 10 ML IV PUSH ×3 (05:08→22:54)
[2021-08-05 06:00] LABS: Alanine Aminotransferase 104 U/L (4-35); Albumin Level 2.6 g/dL (3.5-5.1); Alkaline Phosphatase 244 U/L (38-126); Aspartate Amino Transferase 84 U/L (14-36); Bilirubin,Total 0.5 mg/dL (0.2-1.3); Blood Urea Nitrogen 33 mg/dL (7-17); Calcium 9.3 mg/dL (8.4-10.2); Carbon Dioxide > 40 mmol/L (22-30); Chloride 98 mmol/L (98-107); Estimated CRCL calculation 135 ml/min; Estimated Glomerular Filt Rate > 60; Glucose 165 mg/dL (65-110); Magnesium 2.1 mg/dL (1.6-2.3); Phosphorus 3.9 mg/dL (2.5-4.5); Sodium 146 mmol/L (137-145)
[2021-08-05 06:21] LABS: Hematocrit 42.5 % (37.0-47.0); Hemoglobin 12.9 g/dL (12.0-15.0); Immature Platelet Fraction Pct 5.9 % (0.9-11.2); Mean Corpuscular HGB Conc 30.4 g/dl (32-36); Mean Corpuscular Hemoglobin 30.4 pg (26-34); Mean Platelet Volume 10.7 fl (7.4-10.4); Platelet Count Result 90 k/mm3 (150-375); Red Blood Count 4.25 M/mm3 (4.2-5.4); Red Cell Distribution Width 14.4 % (11.5-14.5); White Blood Count 13.9 K/mm3 (4.5-10.0)
[2021-08-05] MEDS: LEVOTHYROXINE SODIUM 100 MCG TABLET PO (07:07)
[2021-08-05] MEDS: LEVOTHYROXINE SODIUM 75 MCG TABLET PO (07:07)
[2021-08-05 07:17] LABS: Band Neutrophils Percent 10 % (0-6); Eosinophils Absolute Manual 0.27 K/mm3 (0.02-0.5); Eosinophils Percent Manual 2 % (0-4); Lymphocytes Absolute Manual 0.83 K/mm3 (1.1-4.5); Monocytes Absolute Manual 0.13 K/mm3 (0.1-0.90); Monocytes Percent Manual 1 % (3-9); Neutrophils Absolute Manual 12.64 K/mm3 (1.7-7.2); Neutrophils Percent Manual 81 % (46-73); Total Cells Counted 100
[2021-08-05 07:18] LABS: Platelet Estimate Decreased (Adequate)
[2021-08-05] MEDS: BUDESONIDE RESPULE NEB 0.5 MG/2 ML AMP INHALATION ×2 (08:01→20:44)
[2021-08-05] MEDS: INSULIN GLARGINE (*BKC) 100 UNITS/ML 50 UNITS SUB-Q (08:42)
[2021-08-05] MEDS: PANTOPRAZOLE SODIUM IV 40 MG VIAL IV PUSH (08:44)
[2021-08-05] MEDS: FONDAPARINUX SODIUM 2.5 MG/0.5 ML SYRINGE SUB-Q (08:44)
[2021-08-05] MEDS: polyethylene glycoL 3350 17 GM POWD.PACK PO (08:44)
[2021-08-05] MEDS: MINERAL OIL/WHITE PETROLATUM OINTMENT 1 APPLIC EACH EYE ×2 (08:45→22:54)
--- NOTE | 2021-08-05 09:12 | WPDINTPN ---
Progress Note: A&P Assessment and Plan (1) Acute respiratory failure with hypoxia: Code(s): J96.01 - Acute respiratory failure with hypoxia Status: Acute Assessment and Plan: Acute Respiratory failure secondary to COVID-19 pneumonia Patient was on Airvo at maximum flow and FiO2 along with a non-rebreather mask for last many days. She was doing self proning for most of the day. She did not tolerate BiPAP on 07/28 07/30 Patient appears tired and worn out this morning. She was intubated and placed in prone position on 07/30/2021 ABGs were reviewed, oxygenation has been adequate and so is the ventilation. When patient was flipped back to supine position she desaturated low to mid 80s, so has a cuff leak, as she is not getting enough tidal volumes on CMV mode of ventilation. Switched her to pressure control ventilation and is receiving tidal volume Tolerate permissive hypercapnia. Continue daily prone ventilation as tolerated CTA lungs 07/22 1. No pulmonary embolus, sensitivity slightly limited by respiratory motion. 2. Diffuse lung disease, consistent with COVID 19 pneumonia. (2) Pneumonia due to COVID-19 virus: Code(s): U07.1 - COVID-19; J12.82 - Pneumonia due to coronavirus disease 2018 Status: Acute Assessment and Plan: SARS-CoV-2 PCR positive on 07/22, Unvaccinated Patient is in Airborne, Droplet and Contact Isolation patient has completed a 10 day course of dexamethasone which was started on 07/23. I will hold further steroids as CRP has normalized now Patient has completed a 10 day course remdesivir She completed a 5 day course of Levaquin. Hold further antibiotics at this time She received a dose of tocilizumab on 07/23 Monitor inflammatory markers. Her CRP had normalized (3) Hypothyroidism: Code(s): E03.9 - Hypothyroidism, unspecified Status: Acute Assessment and Plan: Continue levothyroxine (4) Hyperglycemia: Code(s): R73.9 - Hyperglycemia, unspecified Status: Acute Assessment and Plan: Likely secondary to steroids Continue sliding scale insulin but change to q.4 hours Increase Lantus to 50 units Tube feeds were changed to Glucerna on 08/02 (5) Gastroesophageal reflux disease: Code(s): K21.9 - Gastro-esophageal reflux disease without esophagitis Status: Acute Assessment and Plan: Continue PPI Additional Plan DVT prophylaxis -Lovenox subQ Stress ulcer prophylaxis -PPI Nutrition -continue Tube feeds Discussed with her Tee, updated with patient's condition and plan of care Code Status - Full Code Total Critical Care Time - 36 minutes Due to a high probability of clinically significant, life threatening deterioration, the patient required my highest level of preparedness to intervene emergently and I personally spent this critical care time directly and personally managing the patient. This critical care time included obtaining a history; examining the patient; pulse oximetry; ordering and review of studies; arranging urgent treatment with development of a management plan; evaluation of patient's response to treatment; frequent reassessment; and discussions with other providers. It was exclusive of separately billable procedures and treating other patients and teaching time. Please see Assessment and Plan section and the rest of the note for further information on patient assessment and treatment Subjective Date/time seen: 08/05/21 09:12 Interval history: 55yo female with hypothyroidism admitted with COVID PNA with acute respiratory failure. Patient is unvaccinated. Patient was exposed to COVID and tested positive for COVID on 07/14/21. She was treated with azithromycin, dexamethasone, Tessalon Perles and albuterol by her primary care doctor. Condition worsen with hypoxia and thus presented to the ED. Intubated 07/3008/05/2021: Patient remains intubated on CMV mode of ventilation, peep of 14 and a 5% FiO2. Pat
[2021-08-05] MEDS: CISATRACURIUM BESYLATE 200 MG in SODIUM CHLORIDE 0.9% IV 80 ML 12.64 ML IV CONT ×2 (10:22→18:29)
[2021-08-05] MEDS: INSULIN ASPART (*BKC) 100 UNITS/ML SUB-Q (12:18)
[2021-08-05 12:53] LABS: Glucose Point of Care 208 mg/dl (65-105)
[2021-08-05] MEDS: FENTANYL 2,500MCG/NS250ML(*CRX 2,500 MCG/250 ML BAG 15 MCG IV CONT (13:56)
--- NOTE | 2021-08-05 14:49 | PM.IMPN ---
Progress Note: A&P Assessment and Plan (1) Acute respiratory failure with hypoxia: Code(s): J96.01 - Acute respiratory failure with hypoxia Status: Acute Assessment and Plan: Secondary to diffuse COVID pneumonia noted on chest CT. With CT on 07/22/21, no evidence of pulmonary emboli though sensitivity slightly limited by respiratory motion. Worsening on Airvo so NRB mask added and moved to the ICU; hypoxia worsened requiring intubation on 07/30/21. Echo showing EF 60-65%, Grade I diastolic dysfunction and mild pHTN. May have underlying GABRIEL. CXR showing stable diffuse lung disease. She is a full code. ABG today showing 7.35/92/102. Currently intubated, sedated and paralyzed. Discussed with product lead. (2) Pneumonia due to COVID-19 virus: Code(s): U07.1 - COVID-19; J12.82 - Pneumonia due to coronavirus disease 2019 Status: Acute Assessment and Plan: Patient reports that she tested positive for COVID on a home kit on 07/14/21 after being exposed to her son who was positive. She did develop typical COVID symptoms. She presented with acute respiratory failure and Chest CT showed diffuse lung disease consistent with COVID pneumonia with a positive COVID test here on 07/22/21. She was treated with empiric antibiotics (Levaquin 750mg IV x 5 days). DDimer was normal and remained normal. She received Tocilizumab 07/23. She has completed Remdesivir x 10 days(08/01); completed dexamethasone (08/01). Wean vent as tolerated. Continue droplet isolation. (3) Thrombocytopenia: Code(s): D69.6 - Thrombocytopenia, unspecified Status: Acute Assessment and Plan: Since 07/30, her plt count has drifted down to 88K. Hopefully at the buddy. probably consumptive. Lovenox stopped. Heparin Ab ordered. Follow wilfredo (4) Elevated LFTs: Code(s): R79.89 - Other specified abnormal findings of blood chemistry Status: Acute Assessment and Plan: Mild elevation of the LFTs most likely related to viral etiology; increase in LFTs on 07/30 related to her deteriorating condition. Repeat labs showing AST/ALT up and down. Remdesivir has been stopped. Follow. (5) Polycythemia: Code(s): D75.1 - Secondary polycythemia Status: Acute Assessment and Plan: Hemoglobin 18.1 on admission. Consider chronic hypoxia, hemoconcentration, a combination of both, or even PCV. ABG as above. Could have undiagnosed GABRIEL. Repeat Hgb dropped down to 13 now. HECTOR-2 level and Epo normal. Echo does show mild pHTN so consider untreated GABRIEL. Hgb normal now and cumulative fluid balance at 5.5L so consider fluid overload. Appreciate hematology input. Continue to monitor. (6) Leukocytosis: Code(s): D72.829 - Elevated white blood cell count, unspecified Status: Acute Assessment and Plan: Leukopenia present on admission related to viral etiology. WBC climbed to the 23K range. Steroid related? Decadron stopped 08/01. Consider 2nd bacterial PNA but no fevers or increasing secretions. No diarrhea. WBC trending down now with routine care. Follow for signs of bacterial infections. (7) Hyperglycemia: Code(s): R73.9 - Hyperglycemia, unspecified Status: Acute Assessment and Plan: A1c 6.2. Glucose has been elevated at times. Glucose still elevated above goal at times. Continue sliding scale and hypoglycemia protocol. Continue Glucerna. Continue Lantus. (8) Elevated blood pressure reading: Code(s): R03.0 - Elevated blood-pressure reading, without diagnosis of hypertension Status: Acute Assessment and Plan: Blood pressure was mildly elevated early on felt related to the stress response from the respiratory failure. Patient's blood pressure was reviewed on 08/05 BP low requiring Levophed but able to come off Levophed 08/03. As above. (9) Hypothyroidism: Code(s): E03.9 - Hypothyroidism, unspecified Status: Acute Assessment and
[2021-08-05] MEDS: MIDAZOLAM 100MG/NS 100ML(*CRX) 100 MG/100 ML BAG 6 MG IV CONT (16:42)
[2021-08-05] MEDS: BISACODYL 10 MG SUPPOSITORY RECTAL (16:51)
[2021-08-05 16:57] LABS: Glucose Point of Care 173 mg/dl (65-105)
[2021-08-06] VITALS (41 sets, daily range): BP systolic 93–148; BP diastolic 58–86; PULSE 76–107; RESP 14–30; TEMP 36.2–36.8; O2SAT 90–96
[2021-08-06 00:14] LABS: Glucose Point of Care 157 mg/dl (65-105)
[2021-08-06] MEDS: CISATRACURIUM BESYLATE 200 MG in SODIUM CHLORIDE 0.9% IV 80 ML 18.06 ML IV CONT ×4 (01:03→19:02)
[2021-08-06] MEDS: IPRATROPIUM BR 0.02% INH SOLN 0.5 MG/2.5 ML VIAL INHALATION ×4 (02:46→21:02)
[2021-08-06] MEDS: LEVALBUTEROL NEB 1.25 MG/3 ML 0.63 MG INHALATION ×4 (02:46→21:02)
[2021-08-06 04:25] LABS: Glucose Point of Care 152 mg/dl (65-105)
[2021-08-06 05:31] LABS: Basophils Percent Auto 0.3 % (0.2-1.2); Eosinophils Absolute Auto 0.1 K/mm3 (0-0.3); Eosinophils Percent Auto 0.8 % (0-4.4); Hematocrit 39.7 % (37.0-47.0); Hemoglobin 12.2 g/dL (12.0-15.0); Immature Granulocyte Absolute 0.15 K/mm3 (0.00-0.031); Immature Granulocyte Percent A 1.2 % (0-0.5); Lymphocytes Absolute Auto 1.35 K/mm3 (0.9-3.2); Lymphocytes Percent Auto 10.5 % (18.3-44.2); Mean Corpuscular HGB Conc 30.7 g/dl (32-36); Mean Corpuscular Volume 97.8 fl (80-100); Mean Platelet Volume 10.5 fl (7.4-10.4); Monocytes Absolute Auto 0.8 K/mm3 (0.1-0.6); Monocytes Percent Auto 5.8 % (2.6-8.5); Neutrophils Absolute Auto 10.5 K/mm3 (1.3-6.7); Neutrophils Percent Auto 81.4 % (45.5-73.1); Nucleated Red Blood Cells Perc 0.2 % (0.0-0.2); Platelet Count Result 83 k/mm3 (150-375); Red Blood Count 4.06 M/mm3 (4.2-5.4); Red Cell Distribution Width 14.2 % (11.5-14.5); White Blood Count 12.9 K/mm3 (4.5-10.0)
[2021-08-06 05:38] LABS: Alveolar/Arterial O2 Gradient 463.8 mmHg; Base Excess ABG 15.1 mEq/l (+/-2.0); Carboxyhemoglobin 0.3 % THb (0-2.0); Fractional Inspired Oxygen 90 %; Methemoglobin ABG 0.3 %THb (0-1.5); Oxygen Saturation ABG 97.7 % (95.0-100.0); Oxyhemoglobin 96.8 % THb (90.0-100.0); PO2 ABG 106.8 mmHg (80.0-100.0); PO2 FiO2 Ratio Arterial Blood 1.19 %; Reduced Hemoglobin 2.6 %THb (0-5.0); Total Hemoglobin 13.1 g/dL (12.0-18.0)
[2021-08-06 05:39] LABS: Arterial Blood Gas PEEP 16 cmH2O; Arterial Blood Gas Vent Mode PRESSURE CONTROL; Arterial Blood Gas Ventilator rate 30 /MIN; Device VENTILATOR; Modified Allen's Test Pass; PCO2 ABG 69.4 mmHg (35.0-45.0); Site Drawn LEFT RADIAL
[2021-08-06 05:40] LABS: Arterial Blood Gas Pressure Support 19 cmH2O
[2021-08-06 05:45] LABS: Alanine Aminotransferase 76 U/L (4-35); Albumin Level 2.6 g/dL (3.5-5.1); Alkaline Phosphatase 237 U/L (38-126); Aspartate Amino Transferase 56 U/L (14-36); Bilirubin,Total 0.6 mg/dL (0.2-1.3); Blood Urea Nitrogen 36 mg/dL (7-17); Calcium 9.3 mg/dL (8.4-10.2); Carbon Dioxide > 40 mmol/L (22-30); Chloride 100 mmol/L (98-107); Estimated CRCL calculation 137 ml/min; Estimated Glomerular Filt Rate > 60; Glucose 184 mg/dL (65-110); Magnesium 2.3 mg/dL (1.6-2.3); Phosphorus 3.9 mg/dL (2.5-4.5); Potassium 4.5 mmol/L (3.4-5.0); Sodium 148 mmol/L (137-145)
[2021-08-06] MEDS: LEVOTHYROXINE SODIUM 100 MCG TABLET PO (06:05)
[2021-08-06] MEDS: FENTANYL 2,500MCG/NS250ML(*CRX 2,500 MCG/250 ML BAG 15 MCG IV CONT ×2 (06:06→22:57)
[2021-08-06] MEDS: LEVOTHYROXINE SODIUM 75 MCG TABLET PO (06:06)
[2021-08-06] MEDS: CENTRAL LINE FLUSH 10 ML IV PUSH ×3 (06:44→21:17)
[2021-08-06] MEDS: BUDESONIDE RESPULE NEB 0.5 MG/2 ML AMP INHALATION ×2 (07:49→21:02)
[2021-08-06] MEDS: MIDAZOLAM 100MG/NS 100ML(*CRX) 100 MG/100 ML BAG 6 MG IV CONT (08:06)
--- NOTE | 2021-08-06 08:39 | WPDINTPN ---
Progress Note: A&P Assessment and Plan (1) Acute respiratory failure with hypoxia: Code(s): J96.01 - Acute respiratory failure with hypoxia Status: Acute Assessment and Plan: Acute Respiratory failure secondary to COVID-19 pneumonia Patient was on Airvo at maximum flow and FiO2 along with a non-rebreather mask for last many days. She was doing self proning for most of the day. She did not tolerate BiPAP on 07/28 07/30 Patient appears tired and worn out this morning. She was intubated and placed in prone position on 07/30/202108/06: When patient was flipped back to supine position she desaturated low to mid 80s, so has a cuff leak, as she is not getting enough tidal volumes on CMV mode of ventilation. Switched her to pressure control ventilation and is receiving tidal volume -if patient is more stable after being placed in supine position, will change ETT -pCO2 this morning is much improved, we are tolerating permissive hypercapnia. Continue daily prone ventilation as tolerated CTA lungs 07/22 1. No pulmonary embolus, sensitivity slightly limited by respiratory motion. 2. Diffuse lung disease, consistent with COVID 19 pneumonia. -continue bronchodilators and Pulmicort (2) Pneumonia due to COVID-19 virus: Code(s): U07.1 - COVID-19; J12.82 - Pneumonia due to coronavirus disease 2018 Status: Acute Assessment and Plan: SARS-CoV-2 PCR positive on 07/22, Unvaccinated Patient is in Airborne, Droplet and Contact Isolation patient has completed a 10 day course of dexamethasone which was started on 07/23. I will hold further steroids as CRP has normalized now Patient has completed a 10 day course remdesivir She completed a 5 day course of Levaquin. Hold further antibiotics at this time She received a dose of tocilizumab on 07/23 Monitor inflammatory markers. Her CRP had normalized (3) Hypothyroidism: Code(s): E03.9 - Hypothyroidism, unspecified Status: Acute Assessment and Plan: Continue levothyroxine (4) Hyperglycemia: Code(s): R73.9 - Hyperglycemia, unspecified Status: Acute Assessment and Plan: Likely secondary to steroids Continue sliding scale insulin but change to q.4 hours Increase Lantus to 50 units Tube feeds were changed to Glucerna on 08/02 (5) Gastroesophageal reflux disease: Code(s): K21.9 - Gastro-esophageal reflux disease without esophagitis Status: Acute Assessment and Plan: Continue PPI Additional Plan DVT prophylaxis -Lovenox subQ Stress ulcer prophylaxis -PPI Nutrition -continue Tube feeds, positive bowel movement 08/06 Will discuss with family Code Status - Full Code Total Critical Care Time - 33 minutes Due to a high probability of clinically significant, life threatening deterioration, the patient required my highest level of preparedness to intervene emergently and I personally spent this critical care time directly and personally managing the patient. This critical care time included obtaining a history; examining the patient; pulse oximetry; ordering and review of studies; arranging urgent treatment with development of a management plan; evaluation of patient's response to treatment; frequent reassessment; and discussions with other providers. It was exclusive of separately billable procedures and treating other patients and teaching time. Please see Assessment and Plan section and the rest of the note for further information on patient assessment and treatment Subjective Date/time seen: 08/06/21 08:39 Interval history: 55yo female with hypothyroidism admitted with COVID PNA with acute respiratory failure. Patient is unvaccinated. Patient was exposed to COVID and tested positive for COVID on 07/14/21. She was treated with azithromycin, dexamethasone, Tessalon Perles and albuterol by her primary care doctor. Condition worsen with hypoxia and thus presented to the ED. Intubated 07/3008/06/2021: Patient marcelino
[2021-08-06] MEDS: INSULIN GLARGINE (*BKC) 100 UNITS/ML 50 UNITS SUB-Q (10:22)
[2021-08-06] MEDS: PANTOPRAZOLE SODIUM IV 40 MG VIAL IV PUSH (10:23)
[2021-08-06] MEDS: MINERAL OIL/WHITE PETROLATUM OINTMENT 1 APPLIC EACH EYE ×2 (10:23→21:17)
[2021-08-06] MEDS: INSULIN ASPART (*BKC) 100 UNITS/ML SUB-Q (12:39)
[2021-08-06 12:45] LABS: Glucose Point of Care 209 mg/dl (65-105)
[2021-08-06 13:38] LABS: Magnesium 1.9 mg/dL (1.6-2.3)
[2021-08-06 13:39] LABS: Blood Urea Nitrogen 31 mg/dL (7-17); Calcium 8.2 mg/dL (8.4-10.2); Carbon Dioxide > 40 mmol/L (22-30); Chloride 101 mmol/L (98-107); Estimated CRCL calculation 168 ml/min; Estimated Glomerular Filt Rate > 60; Glucose 208 mg/dL (65-110); Potassium 3.9 mmol/L (3.4-5.0); Sodium 144 mmol/L (137-145)
[2021-08-06] MEDS: MAGNESIUM SULF 2 GM/WATER 50ML 2 GM/50 ML BAG IVPB (15:30)
[2021-08-06] MEDS: KCL 20 MEQ/SW 100 ML 100 ML 50 MEQ IVPB (15:30)
[2021-08-06 20:06] LABS: Glucose Point of Care 175 mg/dl (65-105)
[2021-08-07] VITALS (41 sets, daily range): BP systolic 91–149; BP diastolic 40–93; PULSE 71–131; RESP 30–60; TEMP 36.6–37.1; O2SAT 90–98
[2021-08-07] MEDS: MIDAZOLAM 100MG/NS 100ML(*CRX) 100 MG/100 ML BAG 6 MG IV CONT ×2 (00:44→18:01)
[2021-08-07] MEDS: CISATRACURIUM BESYLATE 200 MG in SODIUM CHLORIDE 0.9% IV 80 ML 18.06 ML IV CONT ×4 (00:44→18:02)
[2021-08-07 00:51] LABS: Glucose Point of Care 149 mg/dl (65-105)
[2021-08-07] MEDS: LEVALBUTEROL NEB 1.25 MG/3 ML 0.63 MG INHALATION ×4 (02:45→20:20)
[2021-08-07] MEDS: IPRATROPIUM BR 0.02% INH SOLN 0.5 MG/2.5 ML VIAL INHALATION ×4 (02:45→20:20)
[2021-08-07 04:59] LABS: Basophils Absolute Auto 0.1 K/mm3 (0.0-0.1); Basophils Percent Auto 0.6 % (0.2-1.2); Eosinophils Absolute Auto 0.1 K/mm3 (0-0.3); Eosinophils Percent Auto 1.2 % (0-4.4); Hematocrit 35.6 % (37.0-47.0); Hemoglobin 11.1 g/dL (12.0-15.0); Immature Granulocyte Absolute 0.17 K/mm3 (0.00-0.031); Immature Granulocyte Percent A 1.8 % (0-0.5); Lymphocytes Absolute Auto 1.42 K/mm3 (0.9-3.2); Lymphocytes Percent Auto 14.7 % (18.3-44.2); Mean Corpuscular HGB Conc 31.2 g/dl (32-36); Mean Corpuscular Hemoglobin 30.8 pg (26-34); Mean Corpuscular Volume 98.9 fl (80-100); Mean Platelet Volume 10.6 fl (7.4-10.4); Monocytes Absolute Auto 0.6 K/mm3 (0.1-0.6); Monocytes Percent Auto 6.4 % (2.6-8.5); Neutrophils Absolute Auto 7.3 K/mm3 (1.3-6.7); Neutrophils Percent Auto 75.3 % (45.5-73.1); Nucleated Red Blood Cells Perc 0.3 % (0.0-0.2); Platelet Count Result 83 k/mm3 (150-375); Red Cell Distribution Width 14.6 % (11.5-14.5); White Blood Count 9.6 K/mm3 (4.5-10.0)
[2021-08-07 05:24] LABS: Alanine Aminotransferase 51 U/L (4-35); Albumin Level 2.5 g/dL (3.5-5.1); Alkaline Phosphatase 196 U/L (38-126); Aspartate Amino Transferase 43 U/L (14-36); Bilirubin,Total 0.5 mg/dL (0.2-1.3); Blood Urea Nitrogen 33 mg/dL (7-17); Calcium 9.2 mg/dL (8.4-10.2); Carbon Dioxide > 40 mmol/L (22-30); Chloride 101 mmol/L (98-107); Estimated CRCL calculation 138 ml/min; Estimated Glomerular Filt Rate > 60; Glucose 161 mg/dL (65-110); Magnesium 2.4 mg/dL (1.6-2.3); Phosphorus 3.4 mg/dL (2.5-4.5); Potassium 4.3 mmol/L (3.4-5.0); Sodium 146 mmol/L (137-145)
[2021-08-07 05:59] LABS: Alveolar/Arterial O2 Gradient 403.8 mmHg; Base Excess ABG 13.9 mEq/l (+/-2.0); Carboxyhemoglobin 0.3 % THb (0-2.0); Fractional Inspired Oxygen 80 %; HCO3 ABG 39.8 mEq/l (22.0-26.0); Methemoglobin ABG 0.2 %THb (0-1.5); Oxygen Content ABG 17.9 %vol (16.0-22.0); Oxygen Saturation ABG 98.2 % (95.0-100.0); PO2 ABG 108.9 mmHg (80.0-100.0); PO2 FiO2 Ratio Arterial Blood 1.36 %; Reduced Hemoglobin 2.5 %THb (0-5.0); pH ABG 7.477 (7.350-7.450)
[2021-08-07 06:01] LABS: Device VENTILATOR; Modified Allen's Test Pass; Site Drawn LEFT RADIAL
[2021-08-07 06:02] LABS: Arterial Blood Gas PEEP 16 cmH2O; Arterial Blood Gas Vent Mode PRESSURE CONTROL; Arterial Blood Gas Ventilator rate 30 /MIN; Peak Inspiratory Pressure 19 cmH2O
[2021-08-07] MEDS: CENTRAL LINE FLUSH 10 ML IV PUSH ×3 (06:38→20:13)
[2021-08-07] MEDS: LEVOTHYROXINE SODIUM 75 MCG TABLET PO (06:39)
[2021-08-07] MEDS: LEVOTHYROXINE SODIUM 100 MCG TABLET PO (06:39)
[2021-08-07] MEDS: INSULIN GLARGINE (*BKC) 100 UNITS/ML 50 UNITS SUB-Q (08:29)
[2021-08-07] MEDS: BUDESONIDE RESPULE NEB 0.5 MG/2 ML AMP INHALATION ×2 (08:43→20:20)
[2021-08-07] MEDS: PANTOPRAZOLE SODIUM IV 40 MG VIAL IV PUSH (09:04)
[2021-08-07] MEDS: polyethylene glycoL 3350 17 GM POWD.PACK PO (09:04)
--- NOTE | 2021-08-07 09:07 | PCNFU ---
Nutrition Follow-Up Complete: Inadequate Oral Intake as related to mechanical ventilation as evidenced by NPO. Goal: Meet estimated nutritional needs Pt. continue progressing towards goal. No new goal at this time. Pt current nutrition is Glucerna 1.2 at 60 mls per hour over 22 hours per day. Last recorded weight is 129.5 kg. Recommend re-weighing prior to discharge. Bowel Motility: + BM 08/06/2021 Labs Reviewed: Hgb 11.1, Hct 35.6, Mg 2.4, Alb 2.5, Na 146, BUN 33, Cr 0.5, Glu 161 Meds Noted: Budesonide, Bisacodyl, Fentanyl Citrate, Novolog, Lantus, Atrovent Neb, Synthroid, Lopressor, Versed, Miralax, Protonix Skin: No skin breakdown at this time. WNL. Additional Notes: Pt. is receiving 1584 calories, 79 grams of protein and 1,062 mls of water from tube feedings. Pt. is well tolerating the tube feedings. Will continue to closely monitor residuals and electrolytes for signs of intolerance. Will monitor every Monday and Monday.
[2021-08-07 09:38] LABS: Glucose Point of Care 185 mg/dl (65-105)
--- NOTE | 2021-08-07 10:42 | PCNSR ---
On 08/07/21, the student, Lorin Andrade, provided care and completed [facility] documentation on this patient. I have reviewed the student's documentation and agree with the findings.
[2021-08-07] MEDS: MINERAL OIL/WHITE PETROLATUM OINTMENT 1 APPLIC EACH EYE ×2 (12:05→20:13)
[2021-08-07 12:38] LABS: Glucose Point of Care 193 mg/dl (65-105)
--- NOTE | 2021-08-07 12:47 | WPDINTPN ---
Progress Note: A&P Assessment and Plan (1) Acute respiratory failure with hypoxia: Code(s): J96.01 - Acute respiratory failure with hypoxia Status: Acute Assessment and Plan: Acute Respiratory failure secondary to COVID-19 pneumonia Patient was on Airvo at maximum flow and FiO2 along with a non-rebreather mask for last many days. She was doing self proning for most of the day. She did not tolerate BiPAP on 07/28 07/30 Patient appears tired and worn out this morning. She was intubated and placed in prone position on 07/30/202108/06: When patient was flipped back to supine position she desaturated low to mid 80s, so has a cuff leak, as she is not getting enough tidal volumes on CMV mode of ventilation. Switched her to pressure control ventilation and is receiving tidal volume -no cuff leak cuff leak, patient is getting her tidal volumes and ABGs are improving -Continue daily prone ventilation as tolerated -sedated with fentanyl, Versed infusion. On neuromuscular blockade with Nimbex infusion -continue bronchodilators and Pulmicort CTA lungs 07/22 1. No pulmonary embolus, sensitivity slightly limited by respiratory motion. 2. Diffuse lung disease, consistent with COVID 19 pneumonia. (2) Pneumonia due to COVID-19 virus: Code(s): U07.1 - COVID-19; J12.82 - Pneumonia due to coronavirus disease 2019 Status: Acute Assessment and Plan: SARS-CoV-2 PCR positive on 07/22, Unvaccinated Patient is in Airborne, Droplet and Contact Isolation patient has completed a 10 day course of dexamethasone which was started on 07/23. I will hold further steroids as CRP has normalized now Patient has completed a 10 day course remdesivir She completed a 5 day course of Levaquin. Hold further antibiotics at this time She received a dose of tocilizumab on 07/23 Monitor inflammatory markers. Her CRP had normalized (3) Hypothyroidism: Code(s): E03.9 - Hypothyroidism, unspecified Status: Acute Assessment and Plan: Continue levothyroxine (4) Hyperglycemia: Code(s): R73.9 - Hyperglycemia, unspecified Status: Acute Assessment and Plan: Likely secondary to steroids Continue sliding scale insulin but change to q.4 hours Continue Lantus to 50 units Tube feeds were changed to Glucerna on 08/02 (5) Gastroesophageal reflux disease: Code(s): K21.9 - Gastro-esophageal reflux disease without esophagitis Status: Acute Assessment and Plan: Continue PPI Additional Plan DVT prophylaxis -Lovenox subQ Stress ulcer prophylaxis -PPI Nutrition -continue Tube feeds, positive bowel movements Will discuss with family Code Status - Full Code Total Critical Care Time - 32 minutes Due to a high probability of clinically significant, life threatening deterioration, the patient required my highest level of preparedness to intervene emergently and I personally spent this critical care time directly and personally managing the patient. This critical care time included obtaining a history; examining the patient; pulse oximetry; ordering and review of studies; arranging urgent treatment with development of a management plan; evaluation of patient's response to treatment; frequent reassessment; and discussions with other providers. It was exclusive of separately billable procedures and treating other patients and teaching time. Please see Assessment and Plan section and the rest of the note for further information on patient assessment and treatment Subjective Date/time seen: 08/07/21 12:47 Interval history: 55yo female with hypothyroidism admitted with COVID PNA with acute respiratory failure. Patient is unvaccinated. Patient was exposed to COVID and tested positive for COVID on 07/14/21. She was treated with azithromycin, dexamethasone, Tessalon Perles and albuterol by her primary care doctor. Condition worsen with hypoxia and thus presented to the ED. Intubated 07/3008/07/2021:
[2021-08-07 12:52] LABS: Heparin Induced Platelet Antib Negative (Negative)
--- NOTE | 2021-08-07 14:26 | WPDPROCEDUR ---
Procedures Intubation Intubation Date: 08/07/21 Intubation Time: 13:44 A pre-procedural Time-Out was completed immediately before starting the procedure and confirmed: Patient Identification, Site, Procedure, Patient Position and the Availability of Requisite Equipment: Yes Sedative: other (Patient already on sedation and neuromuscular blockade) Laryngoscope: fiber optic video scope Assist device used: fiber optic device ET tube size: 8 Tube secured depth (cm): 24 Tube secured location: lips Tube placement confirmation: visualized tube passing through cords, equal breath sounds bilaterally, no breath sounds over epigastrium and confirmation by capnometry Patient tolerated procedure: well Intubation complications: none Additional comments: Patient was not getting enough tidal volumes with a previous ETT, try to suction with the suction catheter would not go far down. It was thought that the could be of mucus plug in the ETT or the ETT is kinking. Therefore I opted to switch out the old ETT for a new one. Chest x-ray shows endotracheal tube in adequate position. Will lung disease consistent with pneumonia and/or pulmonary edema.
[2021-08-07] MEDS: FENTANYL 2,500MCG/NS250ML(*CRX 2,500 MCG/250 ML BAG 15 MCG IV CONT (15:46)
[2021-08-07] MEDS: INSULIN ASPART (*BKC) 100 UNITS/ML SUB-Q (17:22)
[2021-08-07 17:48] LABS: Glucose Point of Care 208 mg/dl (65-105)
[2021-08-08] VITALS (31 sets, daily range): BP systolic 91–131; BP diastolic 61–80; PULSE 77–93; RESP 30; TEMP 36.6–36.8; O2SAT 88–95
[2021-08-08] MEDS: CISATRACURIUM BESYLATE 200 MG in SODIUM CHLORIDE 0.9% IV 80 ML 18.06 ML IV CONT ×5 (00:47→20:15)
[2021-08-08 01:00] LABS: Glucose Point of Care 149 mg/dl (65-105)
[2021-08-08] MEDS: LEVALBUTEROL NEB 1.25 MG/3 ML 0.63 MG INHALATION ×4 (02:00→22:00)
[2021-08-08] MEDS: IPRATROPIUM BR 0.02% INH SOLN 0.5 MG/2.5 ML VIAL INHALATION ×4 (02:00→22:00)
[2021-08-08] MEDS: LEVOTHYROXINE SODIUM 100 MCG TABLET PO (05:23)
[2021-08-08] MEDS: CENTRAL LINE FLUSH 10 ML IV PUSH ×3 (05:25→23:25)
[2021-08-08] MEDS: LEVOTHYROXINE SODIUM 75 MCG TABLET PO (05:51)
[2021-08-08 05:54] LABS: Basophils Absolute Auto 0.1 K/mm3 (0.0-0.1); Basophils Percent Auto 0.6 % (0.2-1.2); Eosinophils Absolute Auto 0.1 K/mm3 (0-0.3); Hematocrit 34.4 % (37.0-47.0); Hemoglobin 10.4 g/dL (12.0-15.0); Immature Granulocyte Absolute 0.34 K/mm3 (0.00-0.031); Immature Granulocyte Percent A 4.2 % (0-0.5); Lymphocytes Absolute Auto 1.12 K/mm3 (0.9-3.2); Lymphocytes Percent Auto 13.8 % (18.3-44.2); Mean Corpuscular HGB Conc 30.2 g/dl (32-36); Mean Corpuscular Hemoglobin 30.3 pg (26-34); Mean Corpuscular Volume 100.3 fl (80-100); Mean Platelet Volume 10.2 fl (7.4-10.4); Monocytes Absolute Auto 0.7 K/mm3 (0.1-0.6); Monocytes Percent Auto 8.2 % (2.6-8.5); Neutrophils Absolute Auto 5.8 K/mm3 (1.3-6.7); Neutrophils Percent Auto 72.2 % (45.5-73.1); Nucleated Red Blood Cells Absolute Auto 0.1 K/mm3 (0.0-0.012); Nucleated Red Blood Cells Perc 0.7 % (0.0-0.2); Platelet Count Result 77 k/mm3 (150-375); Red Blood Count 3.43 M/mm3 (4.2-5.4); Red Cell Distribution Width 14.6 % (11.5-14.5); White Blood Count 8.1 K/mm3 (4.5-10.0)
[2021-08-08 06:03] LABS: Alveolar/Arterial O2 Gradient 442.9 mmHg; Base Excess ABG 12.8 mEq/l (+/-2.0); Carboxyhemoglobin 0.1 % THb (0-2.0); Fractional Inspired Oxygen 85 %; HCO3 ABG 39.2 mEq/l (22.0-26.0); Methemoglobin ABG 0.4 %THb (0-1.5); Oxygen Content ABG 16.8 %vol (16.0-22.0); Oxygen Saturation ABG 97.8 % (95.0-100.0); Oxyhemoglobin 96.6 % THb (90.0-100.0); PCO2 ABG 58.3 mmHg (35.0-45.0); PO2 ABG 102.7 mmHg (80.0-100.0); PO2 FiO2 Ratio Arterial Blood 1.21 %; Reduced Hemoglobin 2.9 %THb (0-5.0); Total Hemoglobin 12.3 g/dL (12.0-18.0); pH ABG 7.445 (7.350-7.450)
[2021-08-08 06:04] LABS: Arterial Blood Gas Vent Mode CMV; Arterial Blood Gas Ventilator rate 30 /MIN; Device VENTILATOR; Modified Allen's Test Unable to perform; Site Drawn LEFT RADIAL
[2021-08-08 06:05] LABS: Arterial Blood Gas PEEP 16 cmH2O; Arterial Blood Gas Tidal Volume 400 ml
[2021-08-08 06:21] LABS: Alanine Aminotransferase 45 U/L (4-35); Albumin Level 2.6 g/dL (3.5-5.1); Alkaline Phosphatase 173 U/L (38-126); Aspartate Amino Transferase 41 U/L (14-36); Bilirubin,Total 0.7 mg/dL (0.2-1.3); Blood Urea Nitrogen 32 mg/dL (7-17); Calcium 8.8 mg/dL (8.4-10.2); Carbon Dioxide > 40 mmol/L (22-30); Chloride 102 mmol/L (98-107); Estimated CRCL calculation 169 ml/min; Estimated Glomerular Filt Rate > 60; Glucose 165 mg/dL (65-110); Magnesium 2.4 mg/dL (1.6-2.3); Phosphorus 3.1 mg/dL (2.5-4.5); Potassium 3.9 mmol/L (3.4-5.0); Sodium 145 mmol/L (137-145)
[2021-08-08] MEDS: FENTANYL 2,500MCG/NS250ML(*CRX 2,500 MCG/250 ML BAG 17.5 MCG IV CONT ×2 (08:40→22:50)
[2021-08-08] MEDS: polyethylene glycoL 3350 17 GM POWD.PACK PO (08:43)
[2021-08-08] MEDS: PANTOPRAZOLE SODIUM IV 40 MG VIAL IV PUSH (08:43)
[2021-08-08] MEDS: MINERAL OIL/WHITE PETROLATUM OINTMENT 1 APPLIC EACH EYE ×2 (08:45→23:24)
[2021-08-08] MEDS: INSULIN GLARGINE (*BKC) 100 UNITS/ML 50 UNITS SUB-Q (08:45)
[2021-08-08 08:56] LABS: Glucose Point of Care 165 mg/dl (65-105)
[2021-08-08] MEDS: BUDESONIDE RESPULE NEB 0.5 MG/2 ML AMP INHALATION ×2 (09:52→22:00)
[2021-08-08] MEDS: MIDAZOLAM 100MG/NS 100ML(*CRX) 100 MG/100 ML BAG 6 MG IV CONT (11:09)
--- NOTE | 2021-08-08 12:26 | PM.IMPN ---
Progress Note: A&P Assessment and Plan (1) Acute respiratory failure with hypoxia: Code(s): J96.01 - Acute respiratory failure with hypoxia Status: Acute Assessment and Plan: Acute Respiratory failure secondary to COVID-19 pneumonia Patient was on Airvo at maximum flow and FiO2 along with a non-rebreather mask for last many days. She was doing self proning for most of the day. She did not tolerate BiPAP on 07/28 07/30 Patient appears tired and worn out this morning. She was intubated and placed in prone position on 07/30/202108/06: When patient was flipped back to supine position she desaturated low to mid 80s, so has a cuff leak, as she is not getting enough tidal volumes on CMV mode of ventilation. Switched her to pressure control ventilation and is receiving tidal volume -no cuff leak cuff leak, patient is getting her tidal volumes and ABGs are improving -Continue daily prone ventilation as tolerated -sedated with fentanyl, Versed infusion. On neuromuscular blockade with Nimbex infusion -continue bronchodilators and Pulmicort CTA lungs 07/22 1. No pulmonary embolus, sensitivity slightly limited by respiratory motion. 2. Diffuse lung disease, consistent with COVID 19 pneumonia. 08/08/2021 Interval History: patient with COVID-19 was hypoxic and was placed on BiPAP but did not tolerate on 08/07/2021 patient was intubated by gas leak tester currently on vent unable to provide any review of symptoms, patient completed 10 day course of dexamethasone and remdesivir on 07/23, patient is off steroid as CRP is normalized, see receive 5 day course of Levaquin, and was given infusion of tocilizumab on 07/23. patient is seen by gas leak tester and appreciate. (2) Pneumonia due to COVID-19 virus: Code(s): U07.1 - COVID-19; J12.82 - Pneumonia due to coronavirus disease 2019 Status: Acute Assessment and Plan: SARS-CoV-2 PCR positive on 07/22, Unvaccinated Patient is in Airborne, Droplet and Contact Isolation patient has completed a 10 day course of dexamethasone which was started on 07/23. I will hold further steroids as CRP has normalized now Patient has completed a 10 day course remdesivir She completed a 5 day course of Levaquin. Hold further antibiotics at this time She received a dose of tocilizumab on 07/23 Monitor inflammatory markers. Her CRP had normalized (3) Hypothyroidism: Code(s): E03.9 - Hypothyroidism, unspecified Status: Acute Assessment and Plan: Continue levothyroxine (4) Hyperglycemia: Code(s): R73.9 - Hyperglycemia, unspecified Status: Acute Assessment and Plan: Likely secondary to steroids Continue sliding scale insulin but change to q.4 hours Continue Lantus to 50 units Tube feeds were changed to Glucerna on 08/02 (5) Gastroesophageal reflux disease: Code(s): K21.9 - Gastro-esophageal reflux disease without esophagitis Status: Acute Assessment and Plan: Continue PPI Subjective Date/time seen: 08/08/21 12:26 08/08/2021 Interval History: patient with COVID-19 was hypoxic and was placed on BiPAP but did not tolerate on 08/07/2021 patient was intubated by gas leak tester currently on vent unable to provide any review of symptoms, patient completed 10 day course of dexamethasone and remdesivir on 07/23, patient is off steroid as CRP is normalized, see receive 5 day course of Levaquin, and was given infusion of tocilizumab on 07/23. patient is seen by gas leak tester and appreciate. Review of Systems Review of Systems: ROS unobtainable: Yes unobtainable due to endotracheal tube Exam Narrative: Patient is comfortable, NAD prone position HEENT: ET tube in place LUNGS: normal respiratory effort ABD: obese and distended Lower extremities: edema SKIN: nonjaundiced Neuro: on vent and sedated. Objective Data Vital Signs Vital Signs: Vital Signs - 24 hr 08/07/21 14:00 08/07/21 14:21 08/07/21 14:22 Temperature Pul
--- NOTE | 2021-08-08 12:58 | WPDINTPN ---
Progress Note: A&P Assessment and Plan (1) Acute respiratory failure with hypoxia: Code(s): J96.01 - Acute respiratory failure with hypoxia Status: Acute Assessment and Plan: Acute Respiratory failure secondary to COVID-19 pneumonia Patient was on Airvo at maximum flow and FiO2 along with a non-rebreather mask for last many days. She was doing self proning for most of the day. She did not tolerate BiPAP on 07/28 07/30 Patient appears tired and worn out this morning. She was intubated and placed in prone position on 07/30/202108/06: When patient was flipped back to supine position she desaturated low to mid 80s, so has a cuff leak, as she is not getting enough tidal volumes on CMV mode of ventilation. Switched her to pressure control ventilation and is receiving tidal volume -08/07: Replaced ETT at the previous ETT possible had a mucus plug, kinked, could not pass the suction catheter and patient was not getting enough volumes show switched out for a new ETT using a glide scope. -remains on 80% FiO2, peep of 16 -Continue daily prone ventilation as tolerated -sedated with fentanyl, Versed infusion. On neuromuscular blockade with Nimbex infusion -continue bronchodilators and Pulmicort CTA lungs 07/22 1. No pulmonary embolus, sensitivity slightly limited by respiratory motion. 2. Diffuse lung disease, consistent with COVID 19 pneumonia. (2) Pneumonia due to COVID-19 virus: Code(s): U07.1 - COVID-19; J12.82 - Pneumonia due to coronavirus disease 2019 Status: Acute Assessment and Plan: SARS-CoV-2 PCR positive on 07/22, Unvaccinated Patient is in Airborne, Droplet and Contact Isolation patient has completed a 10 day course of dexamethasone which was started on 07/23. I will hold further steroids as CRP has normalized now Patient has completed a 10 day course remdesivir She completed a 5 day course of Levaquin. Hold further antibiotics at this time She received a dose of tocilizumab on 07/23 Monitor inflammatory markers. Her CRP had normalized (3) Hypothyroidism: Code(s): E03.9 - Hypothyroidism, unspecified Status: Acute Assessment and Plan: Continue levothyroxine (4) Hyperglycemia: Code(s): R73.9 - Hyperglycemia, unspecified Status: Acute Assessment and Plan: Likely secondary to steroids Continue sliding scale insulin but change to q.4 hours Continue Lantus 50 units daily Tube feeds were changed to Glucerna on 08/02 (5) Gastroesophageal reflux disease: Code(s): K21.9 - Gastro-esophageal reflux disease without esophagitis Status: Acute Assessment and Plan: Continue PPI Additional Plan DVT prophylaxis -Lovenox subQ Stress ulcer prophylaxis -PPI Nutrition -continue Tube feeds, positive bowel movements Code Status - Full Code Total Critical Care Time - 32 minutes Due to a high probability of clinically significant, life threatening deterioration, the patient required my highest level of preparedness to intervene emergently and I personally spent this critical care time directly and personally managing the patient. This critical care time included obtaining a history; examining the patient; pulse oximetry; ordering and review of studies; arranging urgent treatment with development of a management plan; evaluation of patient's response to treatment; frequent reassessment; and discussions with other providers. It was exclusive of separately billable procedures and treating other patients and teaching time. Please see Assessment and Plan section and the rest of the note for further information on patient assessment and treatment Subjective Date/time seen: 08/08/21 12:58 Interval history: 55yo female with hypothyroidism admitted with COVID PNA with acute respiratory failure. Patient is unvaccinated. Patient was exposed to COVID and tested positive for COVID on 07/14/21. She was treated with azithromycin, dexamethasone, Tessalon Perles
[2021-08-08 13:29] LABS: Glucose Point of Care 179 mg/dl (65-105)
[2021-08-08 15:56] LABS: UFH SRA Result Interpretation Negative (Negative)
[2021-08-08 18:30] LABS: Glucose Point of Care 166 mg/dl (65-105)
[2021-08-09] VITALS (36 sets, daily range): BP systolic 105–147; BP diastolic 60–89; PULSE 79–130; RESP 30; TEMP 36.1–37.5; O2SAT 88–95
[2021-08-09 00:36] LABS: Glucose Point of Care 220 mg/dl (65-105)
[2021-08-09] MEDS: INSULIN ASPART (*BKC) 100 UNITS/ML SUB-Q ×2 (01:05→12:25)
[2021-08-09] MEDS: LEVALBUTEROL NEB 1.25 MG/3 ML 0.63 MG INHALATION ×4 (04:31→21:21)
[2021-08-09] MEDS: IPRATROPIUM BR 0.02% INH SOLN 0.5 MG/2.5 ML VIAL INHALATION ×4 (04:32→21:20)
[2021-08-09] MEDS: CISATRACURIUM BESYLATE 200 MG in SODIUM CHLORIDE 0.9% IV 80 ML 18.06 ML IV CONT (04:50)
[2021-08-09 04:53] LABS: Alveolar/Arterial O2 Gradient 466.9 mmHg; Base Excess ABG 16.5 mEq/l (+/-2.0); Carboxyhemoglobin 0.3 % THb (0-2.0); Fractional Inspired Oxygen 85 %; HCO3 ABG 43.8 mEq/l (22.0-26.0); Methemoglobin ABG 0.4 %THb (0-1.5); Oxyhemoglobin 93.9 % THb (90.0-100.0); PO2 ABG 70.3 mmHg (80.0-100.0); PO2 FiO2 Ratio Arterial Blood 0.83 %; Reduced Hemoglobin 5.4 %THb (0-5.0); Total Hemoglobin 12.1 g/dL (12.0-18.0); pH ABG 7.437 (7.350-7.450)
[2021-08-09 04:54] LABS: Device VENTILATOR; PCO2 ABG 66.4 mmHg (35.0-45.0); Site Drawn LEFT RADIAL
[2021-08-09 04:55] LABS: Arterial Blood Gas PEEP 16 cmH2O; Arterial Blood Gas Vent Mode CMV; Arterial Blood Gas Ventilator rate 30 /MIN
[2021-08-09 05:20] LABS: Hematocrit 36.4 % (37.0-47.0); Hemoglobin 11.2 g/dL (12.0-15.0); Immature Platelet Fraction Pct 5.3 % (0.9-11.2); Mean Corpuscular HGB Conc 30.8 g/dl (32-36); Mean Corpuscular Hemoglobin 31.2 pg (26-34); Mean Corpuscular Volume 101.4 fl (80-100); Mean Platelet Volume 10.5 fl (7.4-10.4); Platelet Count Result 97 k/mm3 (150-375); Red Blood Count 3.59 M/mm3 (4.2-5.4); Red Cell Distribution Width 14.9 % (11.5-14.5)
[2021-08-09] MEDS: LEVOTHYROXINE SODIUM 75 MCG TABLET PO (05:52)
[2021-08-09] MEDS: LEVOTHYROXINE SODIUM 100 MCG TABLET PO (05:52)
[2021-08-09] MEDS: CENTRAL LINE FLUSH 10 ML IV PUSH ×3 (05:56→23:15)
[2021-08-09] MEDS: MIDAZOLAM 100MG/NS 100ML(*CRX) 100 MG/100 ML BAG 6 MG IV CONT ×2 (06:00→23:50)
[2021-08-09 06:11] LABS: Glucose Point of Care 137 mg/dl (65-105)
[2021-08-09] MEDS: PANTOPRAZOLE SODIUM IV 40 MG VIAL IV PUSH (08:27)
[2021-08-09] MEDS: polyethylene glycoL 3350 17 GM POWD.PACK PO (08:27)
[2021-08-09] MEDS: INSULIN GLARGINE (*BKC) 100 UNITS/ML 50 UNITS SUB-Q (08:27)
[2021-08-09] MEDS: MINERAL OIL/WHITE PETROLATUM OINTMENT 1 APPLIC EACH EYE ×2 (08:27→20:05)
[2021-08-09] MEDS: FUROSEMIDE INJ 40 MG/4 ML VIAL IV PUSH (08:27)
[2021-08-09] MEDS: BISACODYL 10 MG SUPPOSITORY RECTAL (08:27)
[2021-08-09] MEDS: BUDESONIDE RESPULE NEB 0.5 MG/2 ML AMP INHALATION ×2 (08:32→21:20)
[2021-08-09 09:19] LABS: Alanine Aminotransferase 46 U/L (4-35); Albumin Level 2.8 g/dL (3.5-5.1); Alkaline Phosphatase 177 U/L (38-126); Aspartate Amino Transferase 41 U/L (14-36); Bilirubin,Total 0.6 mg/dL (0.2-1.3); Blood Urea Nitrogen 27 mg/dL (7-17); Calcium 9.1 mg/dL (8.4-10.2); Carbon Dioxide > 40 mmol/L (22-30); Chloride 101 mmol/L (98-107); Estimated CRCL calculation 170 ml/min; Estimated Glomerular Filt Rate > 60; Glucose 195 mg/dL (65-110); Magnesium 2.3 mg/dL (1.6-2.3); Potassium 3.8 mmol/L (3.4-5.0); Sodium 144 mmol/L (137-145)
--- NOTE | 2021-08-09 09:44 | PM.IMPN ---
Progress Note: A&P Assessment and Plan (1) Acute respiratory failure with hypoxia: Code(s): J96.01 - Acute respiratory failure with hypoxia Status: Acute Assessment and Plan: Secondary to diffuse COVID pneumonia noted on chest CT. With CT on 07/22/21, no evidence of pulmonary emboli though sensitivity slightly limited by respiratory motion. Worsening on Airvo so NRB mask added and moved to the ICU; hypoxia worsened requiring intubation on 07/30/21. Echo showing EF 60-65%, Grade I diastolic dysfunction and mild pHTN. May have underlying GABRIEL. CXR 08/08 showing stable diffuse lung disease. She is a full code. ABG today showing 7.44/66/70. Currently intubated, sedated and paralyzed. Discussed with smasher hand. Agree with Sara. (2) Pneumonia due to COVID-19 virus: Code(s): U07.1 - COVID-19; J12.82 - Pneumonia due to coronavirus disease 2019 Status: Acute Assessment and Plan: Patient reports that she tested positive for COVID on a home kit on 07/14/21 after being exposed to her son who was positive. She did develop typical COVID symptoms. She presented with acute respiratory failure and Chest CT showed diffuse lung disease consistent with COVID pneumonia with a positive COVID test here on 07/22/21. She was treated with empiric antibiotics (Levaquin 750mg IV x 5 days). DDimer was normal and remained normal. She received Tocilizumab 07/23. She has completed Remdesivir x 10 days(08/01); completed dexamethasone (08/01). Wean vent as tolerated. Continue droplet isolation. (3) Thrombocytopenia: Code(s): D69.6 - Thrombocytopenia, unspecified Status: Acute Assessment and Plan: Since 07/30, her plt count has drifted down to 77K. Probably consumptive. Lovenox was stopped and Arixtra added. Heparin Ab and ELIZABETH negative. Follow closely (4) Elevated LFTs: Code(s): R79.89 - Other specified abnormal findings of blood chemistry Status: Acute Assessment and Plan: Mild elevation of the LFTs most likely related to viral etiology; increase in LFTs on 07/30 related to her deteriorating condition. Repeat labs showing AST/ALT more consistently trending down. Follow. (5) Polycythemia: Code(s): D75.1 - Secondary polycythemia Status: Acute Assessment and Plan: Hemoglobin 18.1 on admission. Consider chronic hypoxia, hemoconcentration, a combination of both, or even PCV. ABG as above. Could have undiagnosed GABRIEL. Repeat Hgb dropped down to 11 now. HECTOR-2 level and Epo normal. Echo does show mild pHTN so consider untreated GABRIEL. Hgb normal now and cumulative fluid balance at 12L so consider fluid overload. Appreciate hematology input. Continue to monitor. lasix given once today. (6) Leukocytosis: Code(s): D72.829 - Elevated white blood cell count, unspecified Status: Acute Assessment and Plan: Leukopenia present on admission related to viral etiology. WBC climbed to the 23K range. Steroid related? Decadron stopped 08/01. Consider 2nd bacterial PNA but no fevers or increasing secretions. No diarrhea. WBC trended down now with routine care and without abx. Follow for signs of bacterial infections. (7) Hyperglycemia: Code(s): R73.9 - Hyperglycemia, unspecified Status: Acute Assessment and Plan: A1c 6.2. Glucose has been elevated at times but better controlled. Steroids have been stopped. She remains on Lantus. Continue sliding scale and hypoglycemia protocol. Continue Glucerna. Continue Lantus. (8) Elevated blood pressure reading: Code(s): R03.0 - Elevated blood-pressure reading, without diagnosis of hypertension Status: Acute Assessment and Plan: Blood pressure was mildly elevated early on felt related to the stress response from the respiratory failure. Patient's blood pressure was reviewed on 08/09 BP low requiring Levophed on 08/02 but able to come off Levophed 08/03. She again required Levophed on 07/13
--- NOTE | 2021-08-09 11:48 | PCFNICU ---
ICU Rounding Note: Pt current nutrition is Glucerna 1.2 at 60 ml/hr over 22 hours. Last recorded weight is 129.7 kg, up from 120.1 kg on admit. Bowel Motility:+BM reported 07/27 Labs Reviewed:Hgb 11.2,Hct 36.4 Meds Noted:Versed, Fentanyl, Dulcolax, Lantus, Synthroid,Atrovent, Protonix, Miralax. Skin:left cheek. Additional Notes: Patient remains on mechanical vent and tube feedings of Glucerna 1.2 at 60 ml/hr over 22 hour and tolerating per nursing. Agree with current tube feedings. Following daily in ICU rounds. Assessing/reassessing every Monday and Monday.
[2021-08-09] MEDS: CISATRACURIUM BESYLATE 200 MG in SODIUM CHLORIDE 0.9% IV 80 ML 14.45 ML IV CONT ×2 (12:18→20:02)
[2021-08-09] MEDS: METOPROLOL TARTRATE INJ 5 MG/5 ML VIAL IV PUSH (12:18)
[2021-08-09] MEDS: FENTANYL 2,500MCG/NS250ML(*CRX 2,500 MCG/250 ML BAG 17.5 MCG IV CONT (12:19)
[2021-08-09] MEDS: FONDAPARINUX SODIUM 2.5 MG/0.5 ML SYRINGE SUB-Q (12:23)
[2021-08-09 12:35] LABS: Glucose Point of Care 216 mg/dl (65-105)
--- NOTE | 2021-08-09 12:38 | WPDINTPN ---
Progress Note: A&P Assessment and Plan (1) Acute respiratory failure with hypoxia: Code(s): J96.01 - Acute respiratory failure with hypoxia Status: Acute Assessment and Plan: Acute Respiratory failure secondary to COVID-19 pneumonia Patient was on Airvo at maximum flow and FiO2 along with a non-rebreather mask for last many days. She was doing self proning for most of the day. She did not tolerate BiPAP on 07/28 07/30 Patient appears tired and worn out this morning. She was intubated and placed in prone position on 07/30/202108/06: When patient was flipped back to supine position she desaturated low to mid 80s, so has a cuff leak, as she is not getting enough tidal volumes on CMV mode of ventilation. Switched her to pressure control ventilation and is receiving tidal volume -08/07: Replaced ETT at the previous ETT possible had a mucus plug, kinked, could not pass the suction catheter and patient was not getting enough volumes show switched out for a new ETT using a glide scope. -remains on 80% FiO2, peep of 16 -Continue daily prone ventilation as tolerated -sedated with fentanyl, Versed infusion. On neuromuscular blockade with Nimbex infusion -continue bronchodilators and Pulmicort -will diurese today CTA lungs 07/22 1. No pulmonary embolus, sensitivity slightly limited by respiratory motion. 2. Diffuse lung disease, consistent with COVID 19 pneumonia. (2) Pneumonia due to COVID-19 virus: Code(s): U07.1 - COVID-19; J12.82 - Pneumonia due to coronavirus disease 2018 Status: Acute Assessment and Plan: SARS-CoV-2 PCR positive on 07/22, Unvaccinated Patient is in Airborne, Droplet and Contact Isolation patient has completed a 10 day course of dexamethasone which was started on 07/23. I will hold further steroids as CRP has normalized now Patient has completed a 10 day course remdesivir She completed a 5 day course of Levaquin. Hold further antibiotics at this time She received a dose of tocilizumab on 07/23 Monitor inflammatory markers. Her CRP had normalized (3) Hypothyroidism: Code(s): E03.9 - Hypothyroidism, unspecified Status: Acute Assessment and Plan: Continue levothyroxine (4) Hyperglycemia: Code(s): R73.9 - Hyperglycemia, unspecified Status: Acute Assessment and Plan: Likely secondary to steroids Continue sliding scale insulin but change to q.4 hours Continue Lantus 50 units daily Tube feeds were changed to Glucerna on 08/02 (5) Gastroesophageal reflux disease: Code(s): K21.9 - Gastro-esophageal reflux disease without esophagitis Status: Acute Assessment and Plan: Continue PPI (6) Tachyarrhythmia: Code(s): R00.0 - Tachycardia, unspecified Status: Acute Assessment and Plan: Patient has been in bigeminy, SVT likely related to hypoxia, COVID-19 pneumonia -echocardiogram on 07/30/2021 showed LV chamber dimension is normal, EF of 60-65%, grade 1 diastolic dysfunction, mild pulmonary hypertension with RVSP of 44 mmHg Additional Plan DVT prophylaxis -Lovenox subQ Stress ulcer prophylaxis -PPI Nutrition -continue Tube feeds, positive bowel movements Will discuss with family Code Status - Full Code Total Critical Care Time - 33 minutes Due to a high probability of clinically significant, life threatening deterioration, the patient required my highest level of preparedness to intervene emergently and I personally spent this critical care time directly and personally managing the patient. This critical care time included obtaining a history; examining the patient; pulse oximetry; ordering and review of studies; arranging urgent treatment with development of a management plan; evaluation of patient's response to treatment; frequent reassessment; and discussions with other providers. It was exclusive of separately billable procedures and treating other patients and teaching time. Please see Assessment and Plan se
[2021-08-09 17:46] LABS: Glucose Point of Care 174 mg/dl (65-105)
[2021-08-09 23:21] LABS: Glucose Point of Care 157 mg/dl (65-105)
[2021-08-10] VITALS (34 sets, daily range): BP systolic 96–135; BP diastolic 56–75; PULSE 80–114; RESP 28–30; TEMP 36.5–37.6; O2SAT 90–97
[2021-08-10] MEDS: LEVALBUTEROL NEB 1.25 MG/3 ML 0.63 MG INHALATION ×4 (01:59→21:23)
[2021-08-10] MEDS: IPRATROPIUM BR 0.02% INH SOLN 0.5 MG/2.5 ML VIAL INHALATION ×4 (02:00→21:23)
[2021-08-10] MEDS: CISATRACURIUM BESYLATE 200 MG in SODIUM CHLORIDE 0.9% IV 80 ML 14.45 ML IV CONT ×4 (02:41→23:36)
[2021-08-10] MEDS: FENTANYL 2,500MCG/NS250ML(*CRX 2,500 MCG/250 ML BAG 17.5 MCG IV CONT ×2 (02:43→16:10)
[2021-08-10 04:55] LABS: Base Excess ABG 14.4 mEq/l (+/-2.0); Carboxyhemoglobin 0.3 % THb (0-2.0); Fractional Inspired Oxygen 100 %; HCO3 ABG 40.6 mEq/l (22.0-26.0); Methemoglobin ABG 0.3 %THb (0-1.5); Oxygen Content ABG 15.6 %vol (16.0-22.0); Oxygen Saturation ABG 97.2 % (95.0-100.0); PO2 FiO2 Ratio Arterial Blood 0.92 %; Reduced Hemoglobin 3.4 %THb (0-5.0); Total Hemoglobin 11.5 g/dL (12.0-18.0); pH ABG 7.456 (7.350-7.450)
[2021-08-10 04:56] LABS: Arterial Blood Gas Ventilator rate 16 /MIN; Device VENTILATOR; Modified Allen's Test Pass; Site Drawn RIGHT RADIAL
[2021-08-10 04:57] LABS: Arterial Blood Gas PEEP 16 cmH2O; Arterial Blood Gas Tidal Volume 400 ml; Arterial Blood Gas Vent Mode CMV
[2021-08-10 05:11] LABS: Hematocrit 34.2 % (37.0-47.0); Hemoglobin 10.4 g/dL (12.0-15.0); Immature Platelet Fraction Pct 5.5 % (0.9-11.2); Mean Corpuscular HGB Conc 30.4 g/dl (32-36); Mean Corpuscular Hemoglobin 30.9 pg (26-34); Mean Corpuscular Volume 101.5 fl (80-100); Mean Platelet Volume 10.6 fl (7.4-10.4); Platelet Count Result 105 k/mm3 (150-375); Red Blood Count 3.37 M/mm3 (4.2-5.4); Red Cell Distribution Width 15.4 % (11.5-14.5); White Blood Count 10.3 K/mm3 (4.5-10.0)
[2021-08-10 05:21] LABS: Alanine Aminotransferase 47 U/L (4-35); Albumin Level 2.6 g/dL (3.5-5.1); Alkaline Phosphatase 163 U/L (38-126); Aspartate Amino Transferase 45 U/L (14-36); Bilirubin,Total 0.7 mg/dL (0.2-1.3); Blood Urea Nitrogen 27 mg/dL (7-17); Calcium 9.1 mg/dL (8.4-10.2); Carbon Dioxide > 40 mmol/L (22-30); Chloride 101 mmol/L (98-107); Estimated CRCL calculation 140 ml/min; Estimated Glomerular Filt Rate > 60; Glucose 131 mg/dL (65-110); Magnesium 2.4 mg/dL (1.6-2.3); Phosphorus 2.8 mg/dL (2.5-4.5); Potassium 3.6 mmol/L (3.4-5.0); Sodium 148 mmol/L (137-145)
[2021-08-10] MEDS: LEVOTHYROXINE SODIUM 75 MCG TABLET PO (08:44)
[2021-08-10] MEDS: LEVOTHYROXINE SODIUM 100 MCG TABLET PO (08:45)
[2021-08-10] MEDS: CENTRAL LINE FLUSH 10 ML IV PUSH ×3 (08:45→21:41)
[2021-08-10] MEDS: polyethylene glycoL 3350 17 GM POWD.PACK PO (08:56)
[2021-08-10] MEDS: PANTOPRAZOLE SODIUM IV 40 MG VIAL IV PUSH (08:56)
[2021-08-10] MEDS: MINERAL OIL/WHITE PETROLATUM OINTMENT 1 APPLIC EACH EYE (08:56)
[2021-08-10] MEDS: FONDAPARINUX SODIUM 2.5 MG/0.5 ML SYRINGE SUB-Q (08:56)
[2021-08-10] MEDS: INSULIN GLARGINE (*BKC) 100 UNITS/ML 50 UNITS SUB-Q (08:58)
[2021-08-10] MEDS: BUDESONIDE RESPULE NEB 0.5 MG/2 ML AMP INHALATION ×2 (09:18→21:23)
--- NOTE | 2021-08-10 09:48 | PM.IMPN ---
Progress Note: A&P Assessment and Plan (1) Acute respiratory failure with hypoxia: Code(s): J96.01 - Acute respiratory failure with hypoxia Status: Acute Assessment and Plan: Secondary to diffuse COVID pneumonia noted on chest CTA Chest but no evidence of pulmonary emboli though sensitivity slightly limited by respiratory motion. Worsening on Airvo so NRB mask added and moved to the ICU; hypoxia worsened requiring intubation on 07/30/21. Echo showing EF 60-65%, Grade I diastolic dysfunction and mild pHTN. May have underlying GABRIEL. CXR today showing stable diffuse lung disease worse in the RLL. She is a full code. ABG today showing 7.45/59/92. Currently intubated, sedated and paralyzed. Discussed with firer tunnel kiln. (2) Pneumonia due to COVID-19 virus: Code(s): U07.1 - COVID-19; J12.82 - Pneumonia due to coronavirus disease 2019 Status: Acute Assessment and Plan: Patient reports that she tested positive for COVID on a home kit on 07/14/21 after being exposed to her son who was positive. She did develop typical COVID symptoms. She presented with acute respiratory failure and Chest CT showed diffuse lung disease consistent with COVID pneumonia with a positive COVID test here on 07/22/21. She was treated with empiric antibiotics (Levaquin 750mg IV x 5 days). DDimer was normal and remained normal. She received Tocilizumab 07/23. She has completed Remdesivir x 10 days(08/01); completed dexamethasone (08/01). Wean vent as tolerated. Continue droplet isolation. (3) Tachyarrhythmia: Code(s): R00.0 - Tachycardia, unspecified Status: Acute Assessment and Plan: Telemetry reviewed. Patient with PVCs and brief runs of NSVT. Mag 2.4 but potassium 3.6. ETT about 4cm above the rishi. Replace potassium. Monitor on tele (4) Hypotension: Code(s): I95.9 - Hypotension, unspecified Status: Acute Assessment and Plan: BP low requiring Levophed on 08/02 but able to come off Levophed 08/03. She again required Levophed on 08/07 but weaned quickly and off later the same day. BP remaining stable since. Monitor closely (5) Thrombocytopenia: Code(s): D69.6 - Thrombocytopenia, unspecified Status: Acute Assessment and Plan: Since 07/30, her plt count has drifted down to 77K. Probably consumptive. Lovenox was stopped and Arixtra added. Heparin Ab and ELIZABETH negative. Plt count improving. Follow closely (6) Elevated LFTs: Code(s): R79.89 - Other specified abnormal findings of blood chemistry Status: Acute Assessment and Plan: Mild elevation of the LFTs most likely related to viral etiology; increase in LFTs on 07/30 related to her deteriorating condition. Repeat labs showing AST/ALT more consistently trending down. Follow. (7) Polycythemia: Code(s): D75.1 - Secondary polycythemia Status: Acute Assessment and Plan: Hemoglobin 18.1 on admission. Consider chronic hypoxia, hemoconcentration, a combination of both, or even PCV. ABG as above. Could have undiagnosed GABRIEL. HECTOR-2 level and Epo normal. Echo does show mild pHTN so consider untreated GABRIEL. Hgb 10.4 and cumulative fluid balance at 12.6L so consider fluid overload. Lasix given yesterday with 2L UOP but no change in CXR findings. Continue to monitor. (8) Leukocytosis: Code(s): D72.829 - Elevated white blood cell count, unspecified Status: Acute Assessment and Plan: Leukopenia present on admission related to viral etiology. WBC climbed to the 23K range. Steroid related? Decadron stopped 08/01. Consider 2nd bacterial PNA but no fevers or increasing secretions. No diarrhea. WBC trended down without abx. Follow for signs of bacterial infections. (9) Hyperglycemia: Code(s): R73.9 - Hyperglycemia, unspecified Status: Acute Assessment and Plan: A1c 6.2. Glucose has been elevated at times but better controlled. Steroids have been stopped.
[2021-08-10] MEDS: POTASSIUM CHLORIDE 20 MEQ PACKET (FOR LIQUID) 40 MEQ FEED TUBE (10:04)
--- NOTE | 2021-08-10 11:20 | WPDINTPN ---
Progress Note: A&P Assessment and Plan (1) Acute respiratory failure with hypoxia: Code(s): J96.01 - Acute respiratory failure with hypoxia Status: Acute Assessment and Plan: Acute Respiratory failure secondary to COVID-19 pneumonia Patient was on Airvo at maximum flow and FiO2 along with a non-rebreather mask for last many days. She was doing self proning for most of the day. She did not tolerate BiPAP on 07/28 07/30 Patient appears tired and worn out this morning. She was intubated and placed in prone position on 07/30/202108/06: When patient was flipped back to supine position she desaturated low to mid 80s, so has a cuff leak, as she is not getting enough tidal volumes on CMV mode of ventilation. Switched her to pressure control ventilation and is receiving tidal volume -08/07: Replaced ETT at the previous ETT possible had a mucus plug, kinked, could not pass the suction catheter and patient was not getting enough volumes show switched out for a new ETT using a glide scope. -remains on 100% FiO2, peep of 16. Decrease rate to 28 -Continue daily prone ventilation as tolerated -sedated with fentanyl, Versed infusion. On neuromuscular blockade with Nimbex infusion -continue bronchodilators and Pulmicort -diurese as tolerated. Diamox IV push x1 today CTA lungs 07/22 1. No pulmonary embolus, sensitivity slightly limited by respiratory motion. 2. Diffuse lung disease, consistent with COVID 19 pneumonia. (2) Pneumonia due to COVID-19 virus: Code(s): U07.1 - COVID-19; J12.82 - Pneumonia due to coronavirus disease 2019 Status: Acute Assessment and Plan: SARS-CoV-2 PCR positive on 07/22, Unvaccinated Patient is in Airborne, Droplet and Contact Isolation patient has completed a 10 day course of dexamethasone which was started on 07/23. I will hold further steroids as CRP has normalized now Patient has completed a 10 day course remdesivir She completed a 5 day course of Levaquin. Hold further antibiotics at this time She received a dose of tocilizumab on 07/23 Monitor inflammatory markers. Her CRP had normalized (3) Hypothyroidism: Code(s): E03.9 - Hypothyroidism, unspecified Status: Acute Assessment and Plan: Continue levothyroxine (4) Hyperglycemia: Code(s): R73.9 - Hyperglycemia, unspecified Status: Acute Assessment and Plan: Likely secondary to steroids Continue sliding scale insulin but change to q.4 hours Continue Lantus 50 units daily Tube feeds were changed to Glucerna on 08/02 (5) Gastroesophageal reflux disease: Code(s): K21.9 - Gastro-esophageal reflux disease without esophagitis Status: Acute Assessment and Plan: Continue PPI (6) Tachyarrhythmia: Code(s): R00.0 - Tachycardia, unspecified Status: Acute Assessment and Plan: Patient has been in bigeminy, SVT likely related to hypoxia, COVID-19 pneumonia -echocardiogram on 07/30/2021 showed LV chamber dimension is normal, EF of 60-65%, grade 1 diastolic dysfunction, mild pulmonary hypertension with RVSP of 44 mmHg -replace electrolytes (7) Hematuria: Code(s): R31.9 - Hematuria, unspecified Status: Acute Assessment and Plan: On DVT prophylaxis dose of fondaparinux Likely multifactorial secondary to trauma and thrombocytopenia Monitor hemoglobin Check coags (8) Thrombocytopenia: Code(s): D69.6 - Thrombocytopenia, unspecified Status: Acute Assessment and Plan: Likely multifactorial. Negative for heparin-induced thrombocytopenia Platelet count is now improving Continue fondaparinux (9) Electrolyte abnormality: Code(s): E87.8 - Other disorders of electrolyte and fluid balance, not elsewhere classified Status: Acute Assessment and Plan: Replace low potassium Additional Plan DVT prophylaxis -fondaparinux Stress ulcer prophylaxis -PPI Nutrition -continue Tube feeds, positive bowel movements Cod
--- NOTE | 2021-08-10 11:45 | PCNFU ---
Nutrition Follow-Up Complete: Inadequate Oral Intake as related to mechanical ventilation as evidenced by NPO. Goal: Meet estimated nutritional needs Patient is progressing towards goal. We will continue current goal. Pt current nutrition is Glucerna 1.2 at 60 ml/hr over 22 hours. Last recorded weight is 127.2 kg,up from 120.1 kg on admit. Bowel Motility:+BM reported 08/10 Labs Reviewed:Glu 131, BUN 27, Cr 0.5,Na 148, Alb 2.6 Meds Noted:Versed, Fentanyl,Synthroid, Protonix, Atrovent, Lantus, Protonix, Miralax. Skin: left cheek-skin breakdown. Swollen-Tongue. Additional Notes: Patient remains on mechanical vent. Tube feedings continue of Glucerna 1.2 at 60 ml/hr over 22 hours and tolerating per nursing. Current tube feeding is providing 1584 kcals/92 gms protein/1240 ml water. Free water flush 200 ml q 4 hours. Agree with diet orders. Will monitor daily in ICU rounds. Reassess every Monday and Monday.
[2021-08-10] MEDS: acetaZOLAMIDE SODIUM FOR INJ 500 MG VIAL IV PUSH (11:49)
[2021-08-10 12:27] LABS: INR 1.1; Prothrombin Time 14.1 Seconds (11.1-14.7)
[2021-08-10 12:28] LABS: Fibrinogen 566 mg/dl (215-510); Partial Thromboplastin Time 27.3 SECONDS (22.3-36.8)
[2021-08-10 12:31] LABS: Glucose Point of Care 136 mg/dl (65-105)
[2021-08-10] MEDS: MIDAZOLAM 100MG/NS 100ML(*CRX) 100 MG/100 ML BAG 6 MG IV CONT (16:11)
[2021-08-10 16:55] LABS: Glucose Point of Care 125 mg/dl (65-105)
[2021-08-11] VITALS (34 sets, daily range): BP systolic 99–143; BP diastolic 52–74; PULSE 76–108; RESP 28; TEMP 36.6–38.3; O2SAT 88–96
[2021-08-11] LABS: Glucose Point of Care 102 mg/dl (65-105)
[2021-08-11] LABS: Glucose Point of Care 102 mg/dl (65-105)
[2021-08-11] MEDS: IPRATROPIUM BR 0.02% INH SOLN 0.5 MG/2.5 ML VIAL INHALATION ×4 (02:43→20:00)
[2021-08-11] MEDS: LEVALBUTEROL NEB 1.25 MG/3 ML 0.63 MG INHALATION ×2 (02:43→08:10)
[2021-08-11 05:18] LABS: Mean Corpuscular HGB Conc 30.3 g/dl (32-36); Mean Corpuscular Hemoglobin 30.1 pg (26-34); Mean Corpuscular Volume 99.4 fl (80-100); Mean Platelet Volume 10.8 fl (7.4-10.4); Platelet Count Result 114 k/mm3 (150-375); Red Blood Count 3.32 M/mm3 (4.2-5.4); Red Cell Distribution Width 15.6 % (11.5-14.5)
[2021-08-11 05:29] LABS: Alveolar/Arterial O2 Gradient 496.4 mmHg; Base Excess ABG 11.7 mEq/l (+/-2.0); Carboxyhemoglobin 0.3 % THb (0-2.0); Fractional Inspired Oxygen 100 %; HCO3 ABG 38.9 mEq/l (22.0-26.0); Methemoglobin ABG 0.5 %THb (0-1.5); Oxygen Content ABG 14.9 %vol (16.0-22.0); Oxygen Saturation ABG 98.8 % (95.0-100.0); Oxyhemoglobin 97.2 % THb (90.0-100.0); PO2 ABG 150.3 mmHg (80.0-100.0); Total Hemoglobin 10.7 g/dL (12.0-18.0); pH ABG 7.386 (7.350-7.450)
[2021-08-11 05:31] LABS: Arterial Blood Gas Vent Mode CMV; Arterial Blood Gas Ventilator rate 20 /MIN; Device VENTILATOR; Modified Allen's Test Pass; PCO2 ABG 66.3 mmHg (35.0-45.0); Site Drawn RIGHT RADIAL
[2021-08-11 05:32] LABS: Arterial Blood Gas PEEP 16 cmH2O; Arterial Blood Gas Tidal Volume 400 ml
[2021-08-11 05:40] LABS: Alanine Aminotransferase 43 U/L (4-35); Albumin Level 2.7 g/dL (3.5-5.1); Alkaline Phosphatase 133 U/L (38-126); Aspartate Amino Transferase 47 U/L (14-36); Bilirubin,Total 0.7 mg/dL (0.2-1.3); Blood Urea Nitrogen 24 mg/dL (7-17); Calcium 9.2 mg/dL (8.4-10.2); Carbon Dioxide > 40 mmol/L (22-30); Chloride 103 mmol/L (98-107); Estimated CRCL calculation 118 ml/min; Estimated Glomerular Filt Rate > 60; Glucose 122 mg/dL (65-110); Magnesium 2.2 mg/dL (1.6-2.3); Phosphorus 3.2 mg/dL (2.5-4.5); Sodium 146 mmol/L (137-145)
[2021-08-11] MEDS: LEVOTHYROXINE SODIUM 75 MCG TABLET PO (06:07)
[2021-08-11] MEDS: LEVOTHYROXINE SODIUM 100 MCG TABLET PO (06:07)
[2021-08-11] MEDS: FENTANYL 2,500MCG/NS250ML(*CRX 2,500 MCG/250 ML BAG 17.5 MCG IV CONT ×2 (06:08→20:57)
[2021-08-11] MEDS: CENTRAL LINE FLUSH 10 ML IV PUSH ×3 (06:08→21:10)
[2021-08-11] MEDS: CISATRACURIUM BESYLATE 200 MG in SODIUM CHLORIDE 0.9% IV 80 ML 14.45 ML IV CONT ×3 (07:00→20:59)
[2021-08-11] MEDS: BUDESONIDE RESPULE NEB 0.5 MG/2 ML AMP INHALATION ×2 (08:10→20:00)
[2021-08-11] MEDS: MINERAL OIL/WHITE PETROLATUM OINTMENT 1 APPLIC EACH EYE ×2 (08:15→21:03)
[2021-08-11] MEDS: polyethylene glycoL 3350 17 GM POWD.PACK PO (08:16)
[2021-08-11] MEDS: PANTOPRAZOLE SODIUM IV 40 MG VIAL IV PUSH (08:16)
[2021-08-11] MEDS: FONDAPARINUX SODIUM 2.5 MG/0.5 ML SYRINGE SUB-Q (08:16)
[2021-08-11] MEDS: MIDAZOLAM 100MG/NS 100ML(*CRX) 100 MG/100 ML BAG 6 MG IV CONT (09:13)
[2021-08-11] MEDS: INSULIN GLARGINE (*BKC) 100 UNITS/ML 50 UNITS SUB-Q (09:13)
--- NOTE | 2021-08-11 12:25 | PCFNICU ---
ICU Rounding Note: Pt current nutrition is Glucerna 1.2 at 60 ml/hr over 22 hours. Last recorded weight is 126.2 kg, up from 120.1 kg on admit. Bowel Motility:+BM reported 08/10 Labs Reviewed:Glu 122, Cr 0.6,BUN 24, Na 146, Alb 2.7,Hct 33.0, Hgb 10.0 Meds Noted:Fentanyl, Versed, Synthroid, Atrovent, Protonix, Miralax, Lantus, Arixtra. Skin: WNL Additional Notes: Patient remains on mechanical vent and tube feedings of Glucerna 1.2 at 60ml/hr, tolerating per nursing. Following daily in ICU rounds. Assessing/reassessing every Monday and Monday.
[2021-08-11 12:35] LABS: Glucose Point of Care 126 mg/dl (65-105)
--- NOTE | 2021-08-11 13:24 | WPDINTPN ---
Progress Note: A&P Assessment and Plan (1) Acute respiratory failure with hypoxia: Code(s): J96.01 - Acute respiratory failure with hypoxia Status: Acute Assessment and Plan: Acute Respiratory failure secondary to COVID-19 pneumonia Patient was on Airvo at maximum flow and FiO2 along with a non-rebreather mask for last many days. She was doing self proning for most of the day. She did not tolerate BiPAP on 07/28 07/30 Patient appears tired and worn out this morning. She was intubated and placed in prone position on 07/30/202108/06: When patient was flipped back to supine position she desaturated low to mid 80s, so has a cuff leak, as she is not getting enough tidal volumes on CMV mode of ventilation. Switched her to pressure control ventilation and is receiving tidal volume -08/07: Replaced ETT at the previous ETT possible had a mucus plug, kinked, could not pass the suction catheter and patient was not getting enough volumes show switched out for a new ETT using a glide scope. -patient has not shown any significant improvement over last few days and continues to be on 100% FiO2, peep of 16. Increased rate to 30 -Continue daily prone ventilation as tolerated -sedated with fentanyl, Versed infusion. On neuromuscular blockade with Nimbex infusion -continue bronchodilators and Pulmicort -diurese as tolerated. Will give again Diamox IV push x1 today -08/11 chest x-ray shows new small pneumothorax on the right side. General surgery consulted for chest tube placement CTA lungs 07/22 1. No pulmonary embolus, sensitivity slightly limited by respiratory motion. 2. Diffuse lung disease, consistent with COVID 19 pneumonia. (2) Pneumonia due to COVID-19 virus: Code(s): U07.1 - COVID-19; J12.82 - Pneumonia due to coronavirus disease 2019 Status: Acute Assessment and Plan: SARS-CoV-2 PCR positive on 07/22, Unvaccinated Patient is in Airborne, Droplet and Contact Isolation patient has completed a 10 day course of dexamethasone which was started on 07/23. I will hold further steroids as CRP has normalized now Patient has completed a 10 day course remdesivir She completed a 5 day course of Levaquin. Hold further antibiotics at this time She received a dose of tocilizumab on 07/23 Monitor inflammatory markers. Her CRP had normalized (3) Hypothyroidism: Code(s): E03.9 - Hypothyroidism, unspecified Status: Acute Assessment and Plan: Continue levothyroxine (4) Hyperglycemia: Code(s): R73.9 - Hyperglycemia, unspecified Status: Acute Assessment and Plan: Likely secondary to steroids Continue sliding scale insulin but change to q.4 hours Continue Lantus 50 units daily Tube feeds were changed to Glucerna on 08/02 (5) Gastroesophageal reflux disease: Code(s): K21.9 - Gastro-esophageal reflux disease without esophagitis Status: Acute Assessment and Plan: Continue PPI (6) Tachyarrhythmia: Code(s): R00.0 - Tachycardia, unspecified Status: Acute Assessment and Plan: Patient has been in bigeminy, SVT likely related to hypoxia, COVID-19 pneumonia -echocardiogram on 07/30/2021 showed LV chamber dimension is normal, EF of 60-65%, grade 1 diastolic dysfunction, mild pulmonary hypertension with RVSP of 44 mmHg Her magnesium and potassium are normal. The bigeminy at this time does not have any affect on her hemodynamics Will start beta-zakia (7) Hematuria: Code(s): R31.9 - Hematuria, unspecified Status: Acute Assessment and Plan: On DVT prophylaxis dose of fondaparinux Likely multifactorial secondary to trauma and thrombocytopenia Monitor hemoglobin Coags were checked and reviewed (8) Thrombocytopenia: Code(s): D69.6 - Thrombocytopenia, unspecified Status: Acute Assessment and Plan: Likely multifactorial. Negative for heparin-induced thrombocytopenia Platelet count is now improving Continue fondapar
--- NOTE | 2021-08-11 14:12 | PM.CNGS ---
Assessment and Plan Assessment and plan (1) Pneumothorax: Code(s): J93.9 - Pneumothorax, unspecified Status: Acute Assessment and Plan: Right-sided pneumothorax on chest x-ray today while on positive-pressure ventilation. High oxygen requirements and pressures on the ventilator. Discussed case with Bin Tripper Operator, who has already spoke with the patient's . Dr. Molina will proceed with urgent right-sided chest tube placement at the bedside. Will obtain chest x-ray after to confirm placement and repeat another chest x-ray in the morning. Thank you for allowing us to see the patient in consultation and we will continue to follow along with you. (2) Acute respiratory failure with hypoxia: Code(s): J96.01 - Acute respiratory failure with hypoxia Status: Acute Assessment and Plan: Intubated, sedated, and on paralytics in the ICU. Management per Bin Tripper Operator. (3) Pneumonia due to COVID-19 virus: Code(s): U07.1 - COVID-19; J12.82 - Pneumonia due to coronavirus disease 2019 Status: Acute (4) Thrombocytopenia: Code(s): D69.6 - Thrombocytopenia, unspecified Status: Acute (5) Tachyarrhythmia: Code(s): R00.0 - Tachycardia, unspecified Status: Acute Additional Plan I have discussed the patient's case and plan of care with Dr. Molina. History of Present Illness Consult details Consult date: 08/11/21 Reason for consult: chest tube (Small right pneumothorax) Requesting physician: Elton Sanchez MD Narrative: This is a 56-year-old morbidly obese female who tested positive and was treated for COVID as an outpatient. Her condition worsened and she was presented to the ER on 07/22/21, subsequently requiring admission for COVID pneumonia and acute respiratory failure. Despite medical treatment, her hypoxia continued to worsen, and she ultimately required ICU transfer and was intubated on 07/30/2021. She is now intubated, sedated, and on paralytics in ICU. She has been followed with serial chest x-rays while intubated and was found to have a small right pneumothorax, possible right small pleural effusion, on her chest x-ray today. Our service has been consulted for the right pneumothorax with a request for chest tube placement. The patient is now seen in the ICU. She is intubated and currently in the prone position. Her oxygenation requirements are continuing to climb and she was placed in the prone position for O2 desaturation just before my arrival to the unit. Review of Systems Review of Systems: ROS unobtainable: Yes unobtainable due to endotracheal tube PMFSH Past Medical History Medical History Arthritis COVID-19 (12/2019) Gastroesophageal reflux disease Hypothyroidism Shingles (2009) Surgical History Surgical History History of bunionectomy History of cholecystectomy History of tonsillectomy History of ventral hernia repair Family History Family History Other Hypertension Social History Social History Social History: Surrogate decision maker: Tee Quintero, spouse. Code status: Full code. Smoking status: Never smoker Alcohol intake: current Drinks per week: 0 Substance use: never Substance use type: does not use Additional living arrangements comments: The patient lives with her in [place]. Additional occupation/education comments: Self-employed. Spiritual care concerns: No Meds Home Medications and Allergies Home Medications Medication Instructions Recorded Confirmed Type famotidine 40 mg PO DAILY 07/22/21 07/22/21 History levothyroxine [Euthyrox] 175 mcg PO DAILY 07/22/21 07/22/21 History meloxicam 15 mg PO DAILY 07/22/21 07/22/21 History trazodone 100 mg PO HS 07/22/21
[2021-08-11] MEDS: METOPROLOL TARTRATE 25 MG TABLET PO ×2 (14:13→21:02)
[2021-08-11] MEDS: acetaZOLAMIDE SODIUM FOR INJ 500 MG VIAL IV PUSH (14:15)
--- NOTE | 2021-08-11 14:18 | PM.EVENT ---
Event Note Event Note Event Note: Spoke to patient's Tee by phone and updated him with patient's current status. Discussed that patient has not made any significant improvement over last few days and in fact is now requiring 100% FiO2 and is not tolerating supine position. I answered all his questions. I also informed him of the finding of pneumothorax on her chest x-ray. I explained him the general surgery was consulted for placement of chest tube. Explained him the procedure and obtained a consent by phone for the chest tube placement.
--- NOTE | 2021-08-11 16:49 | P.OP_ITS ---
Procedure Note - Detailed Date of Procedure 08/11/21 Pre-op Diagnosis Respiratory failure, right pneumothorax Post-op Diagnosis same Procedure Performed Prone placement of right chest tube Surgeon Tano Molina MD Anesthesia other (Deeply sedated with narcotics due to inherent lung disease) Indications Spontaneous right pneumothorax well on mechanical ventilation for COVID pneumonia, poor oxygen saturations Findings Right pneumothorax Description of Procedure Patient was prone in the ICU. I prepped and draped the right posterior lateral aspect of the back just a little medial to the posterior axillary line. I had checked this area earlier with a syringe and needle and was able to aspirate air from the chest. Full gown and gloves as well as COVID precautions were taken. Incision was made over the 8th rib. Blunt dissection with a curved clamp as well as some dissecting scissors was carried out down to the chest wall. Proceeding over the rib and into the right chest with the blunt dissect her is a allowed a joya of air. I made a large enough opening into the pleural space so that I could pass a finger into the pleural space as well. I then guided a 28 Kisw[place]ili chest tube into the pleural space and passed it far enough that it would be well within the right pleural space. The tube was attached to Pleur-Evac suction. 0 silk suture was used to close the skin incision as well as to secure the chest tube to the skin. A sterile occlusive dressing was then placed over the chest tube site. The chest tube was placed to 20 cm water continuous suction. Patient's condition did not seem to change during or immediately after the procedure. Estimated Blood Loss -5 Urine Output 0 Drains Yes (Right chest tube) Packing No Pathology none sent Complications No immediate complications Condition critical Disposition ICU
[2021-08-11 17:37] LABS: Glucose Point of Care 107 mg/dl (65-105)
[2021-08-11] MEDS: ACETAMINOPHEN 325 MG TABLET 650 MG PO (17:46)
--- NOTE | 2021-08-11 17:48 | PM.IMPN ---
Progress Note: A&P Assessment and Plan (1) Acute respiratory failure with hypoxia: Code(s): J96.01 - Acute respiratory failure with hypoxia Status: Acute Assessment and Plan: Secondary to diffuse COVID pneumonia noted on chest CTA Chest but no evidence of pulmonary emboli though sensitivity slightly limited by respiratory motion. Worsening on Airvo so NRB mask added and moved to the ICU; hypoxia worsened requiring intubation on 07/30/21. Echo showing EF 60-65%, Grade I diastolic dysfunction and mild pHTN. May have underlying GABRIEL. CXR today showing stable diffuse lung disease worse in the RLL. She is a full code. ABG today showing 7.45/59/92. Currently intubated, sedated and paralyzed. (2) Pneumothorax: Code(s): J93.9 - Pneumothorax, unspecified Status: Acute Assessment and Plan: CXR this morning showing small rt PTX and chest tube placed. Appreciate Gen Surg input. Daily CXR. (3) Pneumonia due to COVID-19 virus: Code(s): U07.1 - COVID-19; J12.82 - Pneumonia due to coronavirus disease 2018 Status: Acute Assessment and Plan: Patient reports that she tested positive for COVID on a home kit on 07/14/21 after being exposed to her son who was positive. She did develop typical COVID symptoms. She presented with acute respiratory failure and Chest CT showed diffuse lung disease consistent with COVID pneumonia with a positive COVID test here on 07/22/21. She was treated with empiric antibiotics (Levaquin 750mg IV x 5 days). DDimer was normal and remained normal. She received Tocilizumab 07/23. She has completed Remdesivir x 10 days(08/01); completed dexamethasone (08/01). Wean vent as tolerated. Continue droplet isolation. (4) Tachyarrhythmia: Code(s): R00.0 - Tachycardia, unspecified Status: Acute Assessment and Plan: Telemetry reviewed. Patient with PVCs and brief runs of NSVT. Mag and potassium normal. Monitor on tele (5) Hypotension: Code(s): I95.9 - Hypotension, unspecified Status: Acute Assessment and Plan: BP low requiring Levophed on 08/02 but able to come off Levophed 08/03. She again required Levophed on 08/07 but weaned quickly and off later the same day. BP remaining stable since. Monitor closely. Consider changing to IV levothyroixine (6) Thrombocytopenia: Code(s): D69.6 - Thrombocytopenia, unspecified Status: Acute Assessment and Plan: Since 07/30, her plt count has drifted down to 77K. Probably consumptive. Lovenox was stopped and Arixtra added. Heparin Ab and ELIZABETH negative. Plt count improving now. Follow closely (7) Elevated LFTs: Code(s): R79.89 - Other specified abnormal findings of blood chemistry Status: Acute Assessment and Plan: Mild elevation of the LFTs most likely related to viral etiology; increase in LFTs on 07/30 related to her deteriorating condition. Repeat labs showing AST/ALT more consistently trending down. Follow. (8) Polycythemia: Code(s): D75.1 - Secondary polycythemia Status: Acute Assessment and Plan: Hemoglobin 18.1 on admission. Consider chronic hypoxia, hemoconcentration, a combination of both, or even PCV. ABG as above. Could have undiagnosed GABRIEL. HECTOR-2 level and Epo normal. Echo does show mild pHTN so consider untreated GABRIEL. Hgb 10-11 now and cumulative fluid balance at 15L so consider fluid overload. Lasix given the other day. Diamox added. (9) Leukocytosis: Code(s): D72.829 - Elevated white blood cell count, unspecified Status: Acute Assessment and Plan: Leukopenia present on admission related to viral etiology. WBC climbed to the 23K range. Steroid related? Decadron stopped 08/01. Consider 2nd bacterial PNA but no fevers or increasing secretions. No diarrhea. WBC trended down without abx. Follow for signs of bacterial infections. (10) Hyperglycemia: Code(s): R73.9 - Hyperglycemia, unspecified
[2021-08-11 23:07] LABS: Alveolar/Arterial O2 Gradient 572.3 mmHg; Base Excess ABG 6.4 mEq/l (+/-2.0); Fractional Inspired Oxygen 100 %; HCO3 ABG 35.8 mEq/l (22.0-26.0); Oxygen Content ABG 15.5 %vol (16.0-22.0); Oxyhemoglobin 89.8 % THb (90.0-100.0); PO2 ABG 60.3 mmHg (80.0-100.0); Total Hemoglobin 12.3 g/dL (12.0-18.0)
[2021-08-11 23:08] LABS: PCO2 ABG 80.4 mmHg (35.0-45.0); pH ABG 7.267 (7.350-7.450)
[2021-08-11 23:09] LABS: Device VENTILATOR; Modified Allen's Test Unable to perform; Oxygen Saturation ABG 86.2 % (95.0-100.0); Site Drawn LEFT RADIAL
[2021-08-11 23:10] LABS: Arterial Blood Gas Ventilator rate 28 /MIN
[2021-08-11 23:11] LABS: Arterial Blood Gas PEEP 16 cmH2O; Arterial Blood Gas Tidal Volume 400 ml; Arterial Blood Gas Vent Mode CMV
[2021-08-12] VITALS (42 sets, daily range): BP systolic 89–139; BP diastolic 55–71; PULSE 85–107; RESP 30; TEMP 36.4–38.8; O2SAT 85–94
[2021-08-12 00:17] LABS: Glucose Point of Care 74 mg/dl (65-105)
[2021-08-12] MEDS: MIDAZOLAM 100MG/NS 100ML(*CRX) 100 MG/100 ML BAG 6 MG IV CONT ×2 (02:21→17:39)
[2021-08-12] MEDS: IPRATROPIUM BR 0.02% INH SOLN 0.5 MG/2.5 ML VIAL INHALATION (02:30)
[2021-08-12] MEDS: CISATRACURIUM BESYLATE 200 MG in SODIUM CHLORIDE 0.9% IV 80 ML 14.45 ML IV CONT ×3 (03:28→18:45)
[2021-08-12 05:58] LABS: Base Excess ABG 9.1 mEq/l (+/-2.0); Carboxyhemoglobin 0.2 % THb (0-2.0); Fractional Inspired Oxygen 100 %; HCO3 ABG 38.4 mEq/l (22.0-26.0); Methemoglobin ABG 0.4 %THb (0-1.5); Oxygen Content ABG 13.9 %vol (16.0-22.0); Oxyhemoglobin 90.6 % THb (90.0-100.0); PO2 ABG 63.2 mmHg (80.0-100.0); PO2 FiO2 Ratio Arterial Blood 0.63 %; Reduced Hemoglobin 8.8 %THb (0-5.0); Total Hemoglobin 10.9 g/dL (12.0-18.0)
[2021-08-12 05:59] LABS: Oxygen Saturation ABG 87.8 % (95.0-100.0); PCO2 ABG 84.8 mmHg (35.0-45.0); pH ABG 7.274 (7.350-7.450)
[2021-08-12 06:00] LABS: Device VENTILATOR; Modified Allen's Test Unable to perform; Site Drawn LEFT RADIAL
[2021-08-12 06:02] LABS: Arterial Blood Gas PEEP 16 cmH2O; Arterial Blood Gas Vent Mode CMV; Arterial Blood Gas Ventilator rate 30 /MIN
[2021-08-12 06:03] LABS: Arterial Blood Gas Tidal Volume 400 ml
[2021-08-12] MEDS: CENTRAL LINE FLUSH 10 ML IV PUSH ×3 (06:17→21:28)
[2021-08-12] MEDS: LEVOTHYROXINE SODIUM INJ 100 MCG/5 ML VIAL 87.5 MCG IV PUSH (06:17)
[2021-08-12 06:35] LABS: Glucose Point of Care 97 mg/dl (65-105)
[2021-08-12 06:50] LABS: Alanine Aminotransferase 35 U/L (4-35); Albumin Level 2.8 g/dL (3.5-5.1); Alkaline Phosphatase 148 U/L (38-126); Aspartate Amino Transferase 38 U/L (14-36); Bilirubin,Total 0.6 mg/dL (0.2-1.3); Blood Urea Nitrogen 23 mg/dL (7-17); Calcium 9.7 mg/dL (8.4-10.2); Carbon Dioxide > 40 mmol/L (22-30); Chloride 102 mmol/L (98-107); Estimated CRCL calculation 91 ml/min; Estimated Glomerular Filt Rate > 60; Glucose 106 mg/dL (65-110); Magnesium 2.3 mg/dL (1.6-2.3); Phosphorus 3.8 mg/dL (2.5-4.5); Potassium 3.3 mmol/L (3.4-5.0); Sodium 145 mmol/L (137-145)
[2021-08-12] MEDS: EPOPROSTENOL SODIUM 0.5 MG VIAL 1 MG INHALATION ×3 (09:24→21:08)
[2021-08-12] MEDS: POTASSIUM CHLORIDE 20 MEQ PACKET (FOR LIQUID) 40 MEQ FEED TUBE (09:42)
[2021-08-12] MEDS: METOPROLOL TARTRATE 25 MG TABLET PO (09:43)
[2021-08-12] MEDS: MINERAL OIL/WHITE PETROLATUM OINTMENT 1 APPLIC EACH EYE ×2 (09:43→21:27)
[2021-08-12] MEDS: FONDAPARINUX SODIUM 2.5 MG/0.5 ML SYRINGE SUB-Q (09:43)
[2021-08-12] MEDS: FUROSEMIDE INJ 40 MG/4 ML VIAL IV PUSH (09:43)
[2021-08-12] MEDS: PANTOPRAZOLE SODIUM IV 40 MG VIAL IV PUSH (09:44)
[2021-08-12] MEDS: polyethylene glycoL 3350 17 GM POWD.PACK PO (09:44)
[2021-08-12] MEDS: INSULIN GLARGINE (*BKC) 100 UNITS/ML 50 UNITS SUB-Q (09:51)
[2021-08-12 10:23] LABS: Hematocrit 32.7 % (37.0-47.0); Hemoglobin 9.7 g/dL (12.0-15.0); Mean Corpuscular HGB Conc 29.7 g/dl (32-36); Mean Corpuscular Hemoglobin 29.9 pg (26-34); Mean Corpuscular Volume 100.9 fl (80-100); Mean Platelet Volume 10.8 fl (7.4-10.4); Platelet Count Result 161 k/mm3 (150-375); Red Blood Count 3.24 M/mm3 (4.2-5.4); Red Cell Distribution Width 15.8 % (11.5-14.5); White Blood Count 11.5 K/mm3 (4.5-10.0)
--- NOTE | 2021-08-12 11:19 | PCFNICU ---
ICU Rounding Note: Pt current nutrition is Glucerna 1.2 at 60 ml/hr over 22 hours. Last recorded weight is 128.9 kg, up from 120.1 kg on admit. Bowel Motility:+BM reported 08/11 Labs Reviewed:Alb 2.8,K 3.3,BUN 23 Meds Noted:Vancomycin, Miralax, Lopressor, Fentanyl, Versed, Protonix, Lantus, Arixtra Skin: left cheek-unstageable pressure ulcer Additional Notes: Remains on mechanical vent. Right chest tube placed 08/11-right pneumothorax. Patient remains on tube feedings of Glucerna 1.2 at 60 ml/hr over 22 hours and tolerating. 200 ml water flush q 4 hours. Following daily in ICU rounds. Assessing/reassessing every Monday and Monday.
[2021-08-12] MEDS: FENTANYL 2,500MCG/NS250ML(*CRX 2,500 MCG/250 ML BAG 17.5 MCG IV CONT (11:54)
[2021-08-12 12:04] LABS: Glucose Point of Care 133 mg/dl (65-105)
--- NOTE | 2021-08-12 12:53 | WPDINTPN ---
Progress Note: A&P Assessment and Plan (1) Acute respiratory failure with hypoxia: Code(s): J96.01 - Acute respiratory failure with hypoxia Status: Acute Assessment and Plan: Acute Respiratory failure secondary to COVID-19 pneumonia Patient was on Airvo at maximum flow and FiO2 along with a non-rebreather mask for last many days. She was doing self proning for most of the day. She did not tolerate BiPAP on 07/28 07/30 Patient appears tired and worn out this morning. She was intubated and placed in prone position on 07/30/202108/06: When patient was flipped back to supine position she desaturated low to mid 80s, so has a cuff leak, as she is not getting enough tidal volumes on CMV mode of ventilation. Switched her to pressure control ventilation and is receiving tidal volume -08/07: Replaced ETT at the previous ETT possible had a mucus plug, kinked, could not pass the suction catheter and patient was not getting enough volumes show switched out for a new ETT using a glide scope. -patient has not shown any significant improvement over last few days and continues to be on 100% FiO2, peep of 16. Rate is at 30 -increase PEEP to 18 -start inhaled Flolan although I doubt it will make any difference -Continue continue prone ventilation as patient is not not tolerating supine and desaturated quickly -sedated with fentanyl, Versed infusion. On neuromuscular blockade with Nimbex infusion -continue bronchodilators and Pulmicort -continue to diurese as tolerated. Will give Lasix now and Diamox later today -chest x-ray reviewed and shows persistent small pneumothorax along with chest tube placement. Advance ET tube by 3 cm CTA lungs 07/22 1. No pulmonary embolus, sensitivity slightly limited by respiratory motion. 2. Diffuse lung disease, consistent with COVID 19 pneumonia. (2) Pneumonia due to COVID-19 virus: Code(s): U07.1 - COVID-19; J12.82 - Pneumonia due to coronavirus disease 2019 Status: Acute Assessment and Plan: SARS-CoV-2 PCR positive on 07/22, Unvaccinated Patient is in Airborne, Droplet and Contact Isolation patient has completed a 10 day course of dexamethasone which was started on 07/23. I will hold further steroids as CRP has normalized now Patient has completed a 10 day course remdesivir She completed a 5 day course of Levaquin. Hold further antibiotics at this time She received a dose of tocilizumab on 07/23 Monitor inflammatory markers. Her CRP had normalized (3) Hypothyroidism: Code(s): E03.9 - Hypothyroidism, unspecified Status: Acute Assessment and Plan: Continue levothyroxine (4) Hyperglycemia: Code(s): R73.9 - Hyperglycemia, unspecified Status: Acute Assessment and Plan: Likely secondary to steroids Continue sliding scale insulin but change to q.4 hours Continue Lantus 50 units daily Tube feeds were changed to Glucerna on 08/02 (5) Gastroesophageal reflux disease: Code(s): K21.9 - Gastro-esophageal reflux disease without esophagitis Status: Acute Assessment and Plan: Continue PPI (6) Tachyarrhythmia: Code(s): R00.0 - Tachycardia, unspecified Status: Acute Assessment and Plan: Patient has been in bigeminy, SVT likely related to hypoxia, COVID-19 pneumonia -echocardiogram on 07/30/2021 showed LV chamber dimension is normal, EF of 60-65%, grade 1 diastolic dysfunction, mild pulmonary hypertension with RVSP of 44 mmHg Her magnesium and potassium are normal. The bigeminy at this time does not have any affect on her hemodynamics Continue beta-zakia (7) Hematuria: Code(s): R31.9 - Hematuria, unspecified Status: Acute Assessment and Plan: On DVT prophylaxis dose of fondaparinux Likely multifactorial secondary to trauma and thrombocytopenia Monitor hemoglobin Coags were checked and reviewed (8) Thrombocytopenia: Code(s): D69.6 - Thrombocytopenia, unspecified Status: Acute
[2021-08-12] MEDS: AZTREONAM 1 GM in DEXTROSE 5% IN WATER 50 ML 100 ML IVPB ×2 (14:04→21:34)
[2021-08-12 14:58] LABS: Add Urine Microscopic? YES; Appearance Urine Cloudy (Clear); Bacteria Urine Trace /hpf; Bilirubin Urine Negative (Negative); Blood Urine 2+ (Negative); Color Urine Red (Yellow); Glucose Urine UA Negative (Negative); Ketones Urine Negative (Negative); Leukocyte Esterase Ur Negative LEU/UL (Negative); Mucus Urine Moderate /lpf; Nitrate Urine Negative (Negative); Protein Urine 2+ mg/dL (Negative); RBC Urine >75 /hpf (0-2); Specific Grav Ur 1.009 (1.001-1.035); Squamous Epithelial Cell Urine Few /hpf (Few); Urobilinogen Urine Negative mg/dL (<2.0)
--- NOTE | 2021-08-12 15:41 | PM.PNGS ---
Progress Note: A&P Assessment and Plan (1) Pneumothorax: Code(s): J93.9 - Pneumothorax, unspecified Status: Acute Assessment and Plan: Chest x-ray this morning shows residual small right pneumothorax with chest tube in position. Continue chest tube to -20 cm wall suction. Will leave in place while on positive pressure ventilation. Repeat chest x-ray tomorrow. (2) Acute respiratory failure with hypoxia: Code(s): J96.01 - Acute respiratory failure with hypoxia Status: Acute Assessment and Plan: Intubated, sedated, and on paralytics in the ICU. Management per Aerodynamics Professor. (3) Pneumonia due to COVID-19 virus: Code(s): U07.1 - COVID-19; J12.82 - Pneumonia due to coronavirus disease 2019 Status: Acute Additional Plan I have discussed the patient's case and plan of care with Dr. Molina. Subjective Subjective Date/Time Seen: 08/12/21 15:41 Interval history: Patient seen in the ICU. Chest tube placed yesterday in the ICU by Dr. Molina after findings of small right pneumothorax. Remains intubated, sedated, and on paralytics. She is in the prone position. Review of Systems Review of Systems: ROS unobtainable: Yes unobtainable due to endotracheal tube Exam Const: General: ill appearing acutely Orientation/consciousness: patient obtunded (sedated/on paralytics) Resp: Effort & Inspection: abnormal respiratory pattern (mechanical ventilator) Auscultation: rhonchi Other: Right posterior-lateral chest tube with dressing clean, dry, and intact on wall suction. No air leak noted. Neuro: General: other (limited d/t sedation/paralytics/intubated) Objective Data Vital Signs Vital Signs: Vital Signs - 24 hr 08/11/21 16:00 08/11/21 16:26 08/11/21 17:46 Temperature 100.9 F H Pulse Rate 107 H 105 H Respiratory Rate 28 H Blood Pressure 124/74 Pulse Oximetry 90 92 08/11/21 18:00 08/11/21 18:32 08/11/21 18:46 Temperature 100.9 F H 99.9 F H Pulse Rate 91 91 Respiratory Rate 28 H 28 H Blood Pressure 114/68 Pulse Oximetry 91 08/11/21 20:00 08/11/21 20:10 08/11/21 20:26 Temperature 98 F Pulse Rate 103 H 102 H 104 H Respiratory Rate 28 H 28 H 28 H Blood Pressure 108/63 Pulse Oximetry 88 L 08/11/21 20:57 08/11/21 20:59 08/11/21 21:02 Temperature Pulse Rate 104 H 104 H 105 H Respiratory Rate 28 H 28 H Blood Pressure 108/63 Pulse Oximetry 08/11/21 22:00 08/11/21 23:30 08/12/21 00:00 Temperature 97.6 F Pulse Rate 100 95 95 Respiratory Rate 28 H 30 H Blood Pressure 118/66 113/68 Pulse Oximetry 89 L 88 L 87 L 08/12/21 02:00 08/12/21 02:21 08/12/21 02:30 Temperature Pulse Rate 97 99 99 Respiratory Rate 30 H 30 H 30 H Blood Pressure 111/64 Pulse Oximetry 86 L 08/12/21 02:31 08/12/21 02:40 08/12/21 03:28 Temperature Pulse Rate 92 92 95 Respiratory Rate 30 H 30 H Blood Pressure 113/64 Pulse Oximetry 86 L 08/12/21 04:00 08/12/21 05:05 08/12/21 06:00 Temperature 98.3 F Pulse Rate 100 104 H 106 H Respiratory Rate 30 H 30 H Blood Pressure 123/71 139/71 Pulse Oximetry 86 L 85 L 85 L 08/12/21 06:14 08/12/21 06:15 08/12/21 06:18 Temperature Pulse Rate 102 H 102 H 103 H Respiratory Rate 30 H 30 H 30 H Blood Pressure 139/71 Pulse Oximetry 08/12/21 08:00 08/12/21 09:42 08/12/21 09:43 Temperature 99.9 F H Pulse Rate 99 95 92 Respiratory Rate 30 H 30 H Blood Pressure 133/69 Pulse Oximetry 87 L 88 L 87 L 08/12/21 10:00 08/12/21 10:14 08/12/21 11:02 Temperature Pulse Rate 86 86 85 Respiratory Rate 30 H 30 H 30 H Blood Pressure 101/62 Pulse Oximetry 94 94 08/12/21 11:03 08/12/21 11:51 08/12/21 11:54 Temperature Pulse Rate 87 87 86 Respiratory Rate 30 H 30 H Blood Pressure 101/62 Pulse Oximetry 94 08/12/21 12:00 08/12/21 14:00 08/12/21 14:40 Temperature 99.9 F H 100 F H Pulse Rate 88 89 86 Respiratory Rate 30 H 30 H 30 H Blood Pressure 99/61 L 95
--- NOTE | 2021-08-12 17:06 | PM.IMPN ---
Progress Note: A&P Assessment and Plan (1) Acute respiratory failure with hypoxia: Code(s): J96.01 - Acute respiratory failure with hypoxia Status: Acute Assessment and Plan: Secondary to diffuse COVID pneumonia noted on chest CTA Chest but no evidence of pulmonary emboli though sensitivity slightly limited by respiratory motion. Worsening on Airvo so NRB mask added and moved to the ICU; hypoxia worsened requiring intubation on 07/30/21. Echo showing EF 60-65%, Grade I diastolic dysfunction and mild pHTN. May have underlying GABRIEL. CXR as mentioned below. She is a full code. ABG today showing 7.27/85/63. Currently intubated, sedated and paralyzed. (2) Pneumothorax: Code(s): J93.9 - Pneumothorax, unspecified Status: Acute Assessment and Plan: CXR showing small rt PTX 08/11 and chest tube placed. CXR this morning showing small residual right PTX. Appreciate Gen Surg input. Daily CXR. (3) Pneumonia due to COVID-19 virus: Code(s): U07.1 - COVID-19; J12.82 - Pneumonia due to coronavirus disease 2019 Status: Acute Assessment and Plan: Patient reports that she tested positive for COVID on a home kit on 07/14/21 after being exposed to her son who was positive. She did develop typical COVID symptoms. She presented with acute respiratory failure and Chest CT showed diffuse lung disease consistent with COVID pneumonia with a positive COVID test here on 07/22/21. She was treated with empiric antibiotics (Levaquin 750mg IV x 5 days). DDimer was normal and remained normal. She received Tocilizumab 07/23. She has completed Remdesivir x 10 days(08/01); completed dexamethasone (08/01). She is now having fevers. UA noted to be hemorhagic so consider UTI from viral vs bacterial etiology. Consider also PNA and/or bacteremia as source. Consider VTE as well. Wean vent as tolerated. Continue droplet isolation. Follow up on culture results and continue IV abx. (4) Tachyarrhythmia: Code(s): R00.0 - Tachycardia, unspecified Status: Acute Assessment and Plan: Telemetry reviewed. Patient with PVCs and brief runs of NSVT. Mag normal. Potassium low and was replaced. Monitor on tele (5) Hypotension: Code(s): I95.9 - Hypotension, unspecified Status: Acute Assessment and Plan: Hypotensive requiring Levophed on 08/02 but able to come off Levophed 08/03. She again required Levophed on 08/07 but weaned quickly and off later the same day. BP remaining stable since. Monitor closely. Changed to IV levothyroxine. (6) Thrombocytopenia: Code(s): D69.6 - Thrombocytopenia, unspecified Status: Acute Assessment and Plan: Since 07/30, her plt count drifted down to 77K. Probably consumptive. Lovenox was stopped and Arixtra added. Heparin Ab and ELIZABETH negative. Plt countnormal now. Follow closely (7) Elevated LFTs: Code(s): R79.89 - Other specified abnormal findings of blood chemistry Status: Acute Assessment and Plan: Mild elevation of the LFTs most likely related to viral etiology; increase in LFTs on 07/30 related to her deteriorating condition. Repeat labs showing AST/ALT more consistently trending down. Follow. (8) Polycythemia: Code(s): D75.1 - Secondary polycythemia Status: Acute Assessment and Plan: Hemoglobin 18.1 on admission. Consider chronic hypoxia, hemoconcentration, a combination of both, or even PCV. ABG as above. Could have undiagnosed GABRIEL. HECTOR-2 level and Epo normal. Echo does show mild pHTN so consider untreated GABRIEL. Hgb 9.7 now and elevated cumulative fluid balance so consider fluid overload. Lasix given the other day. Diamox added. (9) Leukocytosis: Code(s): D72.829 - Elevated white blood cell count, unspecified Status: Acute Assessment and Plan: Leukopenia present on admission related to viral etiology. WBC climbed to the 23K range. Steroid related? Decadron stopped 08/01. WBC
[2021-08-12] MEDS: acetaZOLAMIDE SODIUM FOR INJ 500 MG VIAL IV PUSH (17:39)
[2021-08-12 17:50] LABS: Glucose Point of Care 110 mg/dl (65-105)
[2021-08-12] MEDS: WATER, STERILE FOR INJECTION 10 ML VIAL XX (18:00)
[2021-08-12] MEDS: ACETAMINOPHEN 325 MG TABLET 650 MG PO (21:25)
[2021-08-13] VITALS (31 sets, daily range): BP systolic 84–100; BP diastolic 46–72; PULSE 99–120; RESP 30; TEMP 37.7–38.7; O2SAT 77–91
[2021-08-13] MEDS: CISATRACURIUM BESYLATE 200 MG in SODIUM CHLORIDE 0.9% IV 80 ML 18.06 ML IV CONT (00:37)
[2021-08-13 01:02] LABS: Glucose Point of Care 122 mg/dl (65-105)
[2021-08-13] MEDS: EPOPROSTENOL SODIUM 0.5 MG VIAL 1 MG INHALATION ×2 (02:34→08:31)
[2021-08-13] MEDS: FENTANYL 2,500MCG/NS250ML(*CRX 2,500 MCG/250 ML BAG 17.5 MCG IV CONT (03:20)
[2021-08-13] MEDS: NOREPINEPHRINE 8 MG/D5W 250 ML 8 MG/250 ML BAG 9.38 MG IV CONT (05:00)
[2021-08-13 06:04] LABS: Hematocrit 32.3 % (37.0-47.0); Hemoglobin 9.6 g/dL (12.0-15.0); Mean Corpuscular HGB Conc 29.7 g/dl (32-36); Mean Corpuscular Hemoglobin 30.7 pg (26-34); Mean Corpuscular Volume 103.2 fl (80-100); Mean Platelet Volume 10.9 fl (7.4-10.4); Platelet Count Result 202 k/mm3 (150-375); Red Blood Count 3.13 M/mm3 (4.2-5.4); Red Cell Distribution Width 15.7 % (11.5-14.5); White Blood Count 13.2 K/mm3 (4.5-10.0)
[2021-08-13] MEDS: CISATRACURIUM BESYLATE 200 MG in SODIUM CHLORIDE 0.9% IV 80 ML 14.45 ML IV CONT (06:06)
[2021-08-13] MEDS: CENTRAL LINE FLUSH 10 ML IV PUSH (06:11)
[2021-08-13] MEDS: AZTREONAM 1 GM in DEXTROSE 5% IN WATER 50 ML 100 ML IVPB (06:11)
[2021-08-13] MEDS: LEVOTHYROXINE SODIUM INJ 100 MCG/5 ML VIAL 87.5 MCG IV PUSH (06:12)
[2021-08-13] MEDS: ACETAMINOPHEN 325 MG TABLET 650 MG PO (06:12)
[2021-08-13 06:21] LABS: Alanine Aminotransferase 25 U/L (4-35); Albumin Level 2.5 g/dL (3.5-5.1); Alkaline Phosphatase 122 U/L (38-126); Anion Gap 6 mmol/L (8-16); Aspartate Amino Transferase 39 U/L (14-36); Bilirubin,Total 0.7 mg/dL (0.2-1.3); Blood Urea Nitrogen 35 mg/dL (7-17); Calcium 9.5 mg/dL (8.4-10.2); Carbon Dioxide 36 mmol/L (22-30); Chloride 102 mmol/L (98-107); Estimated CRCL calculation 58 ml/min; Estimated Glomerular Filt Rate 42; Glucose 87 mg/dL (65-110); Magnesium 2.5 mg/dL (1.6-2.3); Phosphorus 3.4 mg/dL (2.5-4.5); Potassium 3.6 mmol/L (3.4-5.0); Sodium 144 mmol/L (137-145)
[2021-08-13 06:29] LABS: Alveolar/Arterial O2 Gradient 580.4 mmHg; Base Excess ABG 7.7 mEq/l (+/-2.0); Carboxyhemoglobin 0.6 % THb (0-2.0); Fractional Inspired Oxygen 100 %; HCO3 ABG 37.1 mEq/l (22.0-26.0); Methemoglobin ABG 0.4 %THb (0-1.5); Oxygen Content ABG 14.4 %vol (16.0-22.0); PO2 ABG 51.6 mmHg (80.0-100.0); PO2 FiO2 Ratio Arterial Blood 0.52 %; Reduced Hemoglobin 15.7 %THb (0-5.0); Total Hemoglobin 12.3 g/dL (12.0-18.0)
[2021-08-13 06:30] LABS: pH ABG 7.279 (7.350-7.450)
[2021-08-13 06:31] LABS: Oxygen Saturation ABG 80.1 % (95.0-100.0); Oxyhemoglobin 83.3 % THb (90.0-100.0)
[2021-08-13 06:32] LABS: Device VENTILATOR; Modified Allen's Test Unable to perform; Site Drawn LEFT RADIAL
[2021-08-13 06:33] LABS: Arterial Blood Gas PEEP 18 cmH2O; Arterial Blood Gas Tidal Volume 400 ml; Arterial Blood Gas Vent Mode CMV; Arterial Blood Gas Ventilator rate 30 /MIN
[2021-08-13] MEDS: MIDAZOLAM 100MG/NS 100ML(*CRX) 100 MG/100 ML BAG 6 MG IV CONT (10:08)
[2021-08-13] MEDS: PANTOPRAZOLE SODIUM IV 40 MG VIAL IV PUSH (10:12)
[2021-08-13] MEDS: METOPROLOL TARTRATE 25 MG TABLET PO (10:12)
[2021-08-13] MEDS: MINERAL OIL/WHITE PETROLATUM OINTMENT 1 APPLIC EACH EYE (10:12)
[2021-08-13] MEDS: acetaZOLAMIDE SODIUM FOR INJ 500 MG VIAL IV PUSH (10:13)
[2021-08-13] MEDS: FONDAPARINUX SODIUM 2.5 MG/0.5 ML SYRINGE SUB-Q (10:13)
[2021-08-13] MEDS: INSULIN GLARGINE (*BKC) 100 UNITS/ML 40 UNITS SUB-Q (10:18)
--- NOTE | 2021-08-13 12:15 | WPDINTPN ---
Progress Note: A&P Assessment and Plan (1) Acute respiratory failure with hypoxia: Code(s): J96.01 - Acute respiratory failure with hypoxia Status: Acute Assessment and Plan: Acute Respiratory failure secondary to COVID-19 pneumonia Patient was on Airvo at maximum flow and FiO2 along with a non-rebreather mask for last many days. She was doing self proning for most of the day. She did not tolerate BiPAP on 07/28 07/30 Patient appears tired and worn out this morning. She was intubated and placed in prone position on 07/30/202108/06: When patient was flipped back to supine position she desaturated low to mid 80s, so has a cuff leak, as she is not getting enough tidal volumes on CMV mode of ventilation. Switched her to pressure control ventilation and is receiving tidal volume -08/07: Replaced ETT at the previous ETT possible had a mucus plug, kinked, could not pass the suction catheter and patient was not getting enough volumes show switched out for a new ETT using a glide scope. -patient has not shown any significant improvement over last many days and continues to be on 100% FiO2, peep of 18. Rate is at 30 -she is not tolerating supine position anymore and has been in prone position for last 2 days -she was started on here Flolan but has not made any difference -saturations despite all these interventions are in 80s -sedated with fentanyl, Versed infusion. On neuromuscular blockade with Nimbex infusion -continue bronchodilators and Pulmicort -she was being diuresed with currently blood pressure is low -chest x-ray reviewed and shows persistent small pneumothorax along with chest tube placement. Advance ET tube by 3 cm CTA lungs 07/22 1. No pulmonary embolus, sensitivity slightly limited by respiratory motion. 2. Diffuse lung disease, consistent with COVID 19 pneumonia. (2) Pneumonia due to COVID-19 virus: Code(s): U07.1 - COVID-19; J12.82 - Pneumonia due to coronavirus disease 2019 Status: Acute Assessment and Plan: SARS-CoV-2 PCR positive on 07/22, Unvaccinated Patient is in Airborne, Droplet and Contact Isolation patient has completed a 10 day course of dexamethasone which was started on 07/23. I will hold further steroids as CRP has normalized now Patient has completed a 10 day course remdesivir She completed a 5 day course of Levaquin. Hold further antibiotics at this time She received a dose of tocilizumab on 07/23 Monitor inflammatory markers. Her CRP had normalized (3) Hypothyroidism: Code(s): E03.9 - Hypothyroidism, unspecified Status: Acute Assessment and Plan: Continue levothyroxine (4) Hyperglycemia: Code(s): R73.9 - Hyperglycemia, unspecified Status: Acute Assessment and Plan: Likely secondary to steroids Continue sliding scale insulin but change to q.4 hours Continue Lantus 50 units daily Tube feeds were changed to Glucerna on 08/02 (5) Gastroesophageal reflux disease: Code(s): K21.9 - Gastro-esophageal reflux disease without esophagitis Status: Acute Assessment and Plan: Continue PPI (6) Tachyarrhythmia: Code(s): R00.0 - Tachycardia, unspecified Status: Acute Assessment and Plan: Patient has been in bigeminy, SVT likely related to hypoxia, COVID-19 pneumonia -echocardiogram on 07/30/2021 showed LV chamber dimension is normal, EF of 60-65%, grade 1 diastolic dysfunction, mild pulmonary hypertension with RVSP of 44 mmHg Her magnesium and potassium are normal. The bigeminy at this time does not have any affect on her hemodynamics beta-zakia is on hold due to low blood pressure (7) Hematuria: Code(s): R31.9 - Hematuria, unspecified Status: Acute Assessment and Plan: On DVT prophylaxis dose of fondaparinux Likely multifactorial secondary to trauma and thrombocytopenia Monitor hemoglobin Coags were checked and reviewed (8) Thrombocytopenia: Code(s): D69.6 - Thrombocytop
[2021-08-13] MEDS: MORPHINE SULFATE (*CRX) 4 MG/ML INJ 5 MG IV PUSH (12:20)
--- NOTE | 2021-08-13 12:24 | PCNFU ---
Nutrition Follow-Up Complete: Inadequate Oral Intake as related to mechanical ventilation as evidenced by NPO. Goal: Meet estimated nutritional needs Patient has limited progress towards goal. We will continue current goal. Pt current nutrition is Glucerna 1.2 at 60 ml/hr Last recorded weight is 128.8 kg, up from 120.1 kg on admit. Bowel Motility:+BM reported 08/11 Labs Reviewed:Hgb 9.6,Hct 32.3,K 2.5, Mg 2.5, BUN 35, Cr 1.3 Meds Noted:Lantus, Fentanyl, Versed, Protonix, Lopressor, Levophed Skin:unstageable Pressure Ulcer-left cheek Additional Notes: Patient remains on mechanical vent at this time with current tube feedings of Glucerna 1.2 at 60 ml/hr over 22 hours. Patient has been made a DNR. Comfort measures plans to be initiated once family arrives. Monitoring: daily in ICU rounds and reassessing every Monday and Monday.
--- NOTE | 2021-08-13 13:13 | PM.DDS ---
Discharge Summary Date and Time Date of : 08/13/21 Time of : 12:39 Probable Cause of Probable Cause of : COVID Pneumonia with Acute respiratory failure Summary Hospital Course: Patient reported that she tested positive for COVID on a home kit on 07/14/21 after being exposed to her son who was positive. She did develop typical COVID symptoms. She presented with acute respiratory failure and Chest CT showed diffuse lung disease consistent with COVID pneumonia with a positive COVID test here on 07/22/21. She was treated with empiric antibiotics (Levaquin 750mg IV x 5 days). DDimer was normal and remained normal. She received Tocilizumab 07/23. She completed a course of Remdesivir and dexamethasone. Despite maximum tharpy, her condition continue to worsen. She was on Airvo with NRB mask added and moved to the ICU; hypoxia worsened requiring intubation on 07/30/21. Echo showing EF 60-65%, Grade I diastolic dysfunction and mild pHTN. She remained intubated and sedated. Ultimately she needed paralytics and then started on Flolan. Despite this, she remained on 100% FiO2 and PEEP 18. She did develop a right pneumothorax as well treated with a chest tube. Family were kept informed of the severity of her condition. Given the lack of improvement and that her chances of survival were bleak, family approached about comfort measures and they agreed. Patient was made comfortable and extubated. She on 08/13/21 Additional Data Was code activated?: No Hospice patient?: No
== END 2021-08-13 12:39 | disposition expired | DRG 207 ==
LOC: ANHED 14:33 → ANH3MEDSUR 16:48 → ANHIMU 19:02 → ANHICU 07-29 12:59
PROVIDERS: Emergency Medicine; Internal Medicine; Physician Assistant; Admitting Provider Internal Medicine; Emergency Provider Emergency Medicine; PCP Nurse Practitioner Family; Visit Provider Internal Medicine
DX: U07.1 COVID-19 (principal); J12.82 Pneumonia due to coronavirus disease 2019; J96.01 Acute respiratory failure with hypoxia; J96.02 Acute respiratory failure with hypercapnia; A41.9 Sepsis, unspecified organism; Z68.42 Body mass index [BMI] 45.0-49.9, adult; T85.698A Other mechanical complication of other specified internal prosthetic devices, implants and grafts, initial encounter; I47.1 Supraventricular tachycardia; J93.83 Other pneumothorax; E03.9 Hypothyroidism, unspecified; R00.8 Other abnormalities of heart beat; M19.90 Unspecified osteoarthritis, unspecified site; K21.9 Gastro-esophageal reflux disease without esophagitis; D75.1 Secondary polycythemia; R03.0 Elevated blood-pressure reading, without diagnosis of hypertension; G47.33 Obstructive sleep apnea (adult) (pediatric); E66.01 Morbid (severe) obesity due to excess calories; R31.9 Hematuria, unspecified; R73.9 Hyperglycemia, unspecified; T38.0X5A Adverse effect of glucocorticoids and synthetic analogues, initial encounter; Z90.49 Acquired absence of other specified parts of digestive tract; D72.829 Elevated white blood cell count, unspecified; D69.59 Other secondary thrombocytopenia; T39.395A Adverse effect of other nonsteroidal anti-inflammatory drugs [NSAID], initial encounter; Z66 Do not resuscitate
CPT/HCPCS: 31500; 36415; 36569; 36600; 71045; 71275; 80048; 80053; 80076; 81001; 81219; 81270; 81402; 81403; 81479; 82375; 82565; 82668; 82728; 82805; 82948; 83036; 83050; 83605; 83615; 83735; 84100; 84145; 84443; 84450; 84460; 84484; 85025; 85027; 85055; 85380; 85384; 85610; 85730; 86022; 86140; 87040; 87070; 87077; 87086; 87088; 87186; 87205; 93005; 93306; 94002; 94003; 94640; 96365; 96367; 96375; 99285; A9270; C1751; C9113; C9803; G0378; J0282; J0330; J1100; J1120; J1650; J1652; J1815; J1940; J1956; J2250; J2270; J2405; J2997; J3010; J3370; J3475; J3480; J7030; J7040; Q0249; Q9967; U0003; U0005